=== PATIENT | male | born 1930 | race Caucasian/White ===

== ENCOUNTER 2017-11-05 22:44 | Inpatient (IN) | payer OTHER, MEDICARE ==
[~2017-11-05] VITALS: Ht 175.3 cm; Wt 93.1 kg
[~2017-11-05 22:44] MED LIST: ASPIR 8181 MG PO; ATENOLOL25 MG PO; ATORVASTATIN CA40 MG PO; CARDIOVID PLUS1 SGL PO; CLOPIDOGREL75 MG PO; HYDROCHLOROTH12.5 M1 PO; NIFEDICAL XL30 MG PO; PERCOCET 325 MG1 TA2 PO; VALIUM 10 MG. T10 MG PO; VICODIN 500 MG-1 TAB PO
--- NOTE | 2017-11-05 23:01 | ED GI/GU/ABDOMINAL COMPLAINT ---
History of Present Illness General Chief Complaint: Dizziness Stated Complaint: PT SOB,BLOOD IN STOOL AND DIZZY Source: patient Exam Limitations: no limitations Vital Signs & Intake/Output Vital Signs & Intake/Output Vital Signs Date Time Temp Pulse Resp B/P B/P Pulse O2 O2 Flow FiO2 Mean Ox Delivery Rate 11/05 2304 96.0 65 16 103/61 99 Room Air ED Intake and Output 11/06 0000 11/05 1200 Intake Total Output Total Balance Patient 218 lb Weight Allergies Coded Allergies: MDX - TAPE (TAPE) (UNKNOWN 05/24/14) Reconcile Medications Aspirin (Ecotrin) 81 MG TABLET.DR 1 TAB PO DAILY HEART HEALTH (Reported) Atenolol 25 MG TABLET 1 TAB PO DAILY HEART (Reported) NEXT DOSE TOMORROW Atorvastatin Calcium (Lipitor) 40 MG TABLET 1 TAB PO DAILY CHOLESTEROL ( Reported) NEXT DOSE THIS MARIAH CLOPIDOGREL BISULFATE (Clopidogrel) 75 MG TAB 1 TAB PO DAILY BLOOD THINNER ( Reported) FISH OIL/OM-3/DL-E/FA/B6-B12 (Cardiovid Plus Softgel) 1,000 MG-600 MG-800 MCG CAPSULE 1 TAB PO DAILY HEALTH (Reported) NEXT DOSE TODAY Nifedipine (Nifedipine ER) 30 MG TAB.ER.24 1 TAB PO DAILY HEART (Reported) NEXT DOSE TOMORROW Triage Note: PER PT ON 10/18/17 HAD RT KIDNEY REMOVED AT [facility], SINCE HAS HAD ABD PAIN TODAY NOTED BLOOD IN STOOL AND FEELING DIZZY AND SOB Triage Nurses Notes Reviewed? yes Duration: day(s):, waxing and waning Timing: recent history Quality/Severity: cramping Location: generalized abdomen Radiation: no radiation Activities at Onset: none Prior Abdominal Problems: none Modifying Factors: Worsens With: defecating. Associated Symptoms: dark black stools HPI: 87 YO gentleman s/p left nephrectomy in early october 2017, on aspirin and plavix, presents with weakness, dizziness, and dark black stools for the past 5-6 days. He is on aspirin and plavix for stents. He states, "I was sitting on the toilet and I almost passed out." He notes diffuse abdominal discomfort. He has no chest pain, dyspnea, fever, chills, dysuria. Past History Travel History Traveled to [place] past 21 day No Medical History Any Pertinent Medical History? see below for history Neurological: NONE EENT: hearing loss Cardiovascular: CAD, hypertension, hyperlipidemia, myocardial infarction, PVD, PACEMAKER (BRADYCARDIA) Respiratory: pneumonia Gastrointestinal: remote hx colon polyps. 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 FH: heart attack FATHER, , Age 67; Cause: Myocardial infarct. FH: heart attack Hx Contributory? No Review of Systems Review of Systems Constitutional: Reports: no symptoms. EENTM: Reports: no symptoms. Respiratory: Reports: no symptoms. Cardiovascular: Reports: no symptoms. GI: Reports: no symptoms. Genitourinary: Reports: no symptoms. Musculoskeletal: Reports: no symptoms. Skin: Reports: no symptoms. Neurological/Psychological: Reports: no symptoms. Hematologic/Endocrine: Reports: no symptoms. Immunologic/Allergic: Reports: no symptoms. All Other Systems: Reviewed and Negative Physical Exam Physical Exam General Appearance: well developed/nourished, mild distress Head: atraumatic, normal appearance Eyes: Bilateral: normal appearance. Ears, Nose, Throat, Mouth: hearing grossly normal, moist mucous membrane Neck: normal inspection, supple, full range of motion Respiratory: normal breath sounds, chest non-tender, no respiratory distress, quiet respiration, lungs clear Cardiovascular: regular rate/rhythm Gastrointestinal: normal bowel sounds, soft, mild diffuse tenderness to palpation. Rectal: heme positive stool, black stool Back: normal inspection, normal range of motion Extremities: normal range of motion Neurologic/Psych: no motor/sensory deficits, awake, alert, oriented x 3 Skin: intact, normal color, warm/dry Core Measures ACS in differential dx? No Sepsis Present: No Sepsis Focused Exam Completed? No Progress Differential Diagnosis: upper vs lower gi bleed. Plan of Care: Orders Procedure Date/time Status Nothing by Mouth 11/06 B Active Saline Lock 11/05 2357 Active Misc Message 11/05 2357 Active ED Holding Orders 11/05 2357 Active Admit to inpatient 11/05 2357 Active Vital Signs 11/05 2357 Active Code Status 11/05 2357 Active URINALYSIS 11/05 231 Complete TROPONIN LEVEL 11/05 2300 Complete PARTIAL THROMBOPLASTIN TIME 11/05 2300 Complete PROTHROMBIN TIME 11/05 2300 Complete LIPASE 11/05 2300 Complete HEPATIC FUNCTION PANEL 11/05 2300 Complete CBC WITHOUT DIFFERENTIAL 11/05 2300 Complete BASIC METABOLIC PANEL 11/05 2300 Complete AMYLASE 11/05 2300 Complete TYPE & SCREEN (NOT X-MATCH) 11/05 2300 Complete EKG 11/05 2245 Active Current Medications Sig/Moira Start time Last Medication Dose Stop Time Status Admin Sodium Chloride 1,000 ML BOLUS ONE 11/06 29 AC 11/06 (Normal Saline 0.9%) 11/06 128 003 Laboratory Tests 11/05/172329: Urine Color YEL, Urine Clarity CLEAR, Urine pH 6.0, Ur Specific [place] 1.020, Urine Protein NEG, Urine Ketones NEG, Urine Nitrite NEG, Urine Bilirubin NEG, Urine Urobilinogen 0.2, Ur Leukocyte Esterase NEG, Ur Microscopic EXAM NOT REQUIRED, Urine Hemoglobin NEG, Urine Glucose NEG 11/05/172306: Anion Gap 11, Estimated GFR 38 L, BUN/Creatinine Ratio 28.2 H, Glucose 145 H, Calcium 8.5, Total Bilirubin 0.4, Direct Bilirubin 0.3, AST 35, ALT 64, Alkaline Phosphatase 90, Troponin I < 0.01, Total Protein 6.2 L, Albumin 3.0 L, Amylase 38, Lipase 178, PT 13.4 H, INR 1.28 H, APTT 31, CBC w Diff NO MAN DIFF REQ, RBC 3.54 L, MCV 92.7, MCH 30.0, MCHC 32.4 L, RDW 13.3, MPV 9.1, Gran % 75.8 H , Lymphocytes % 15.3 L, Monocytes % 6.6, Eosinophils % 1.8, Basophils % 0.5, Absolute Granulocytes 13.5 H, Absolute Lymphocytes 2.7, Absolute Monocytes 1.2 H, Absolute Eosinophils 0.3, Absolute Basophils 0.1 Diagnostic Imaging: Viewed by Me: Radiology Read, CT Scan. Discussed w/RAD: Radiology Read, CT Scan. CXR Impression: PATIENT: MILADYS HALL PRESENT AGE: 87 PATIENT ACCOUNT NO: [id number] : 32 LOCATION: ER ORDERING PHYSICIAN: Lew eLon MD SERVICE DATE: 11/05/17 EXAM TYPE: RAD - XRY- PORTABLE CHEST XRAY EXAMINATION: XR PORTABLE CHEST CLINICAL INFORMATION: Dyspnea. COMPARISON: Chest x-ray 09/28/2017 TECHNIQUE: Portable frontal view of the chest was obtained. 11:01 PM FINDINGS: Pacemaker lead in right atrial and right ventricle remains unchanged position since prior study. The heart size is normal. The cardiac and the mediastinal contours are normal. There is no pulmonary vascular congestion or pleural effusion. IMPRESSION: No acute abnormality of the chest. DICTATED BY: Cody Esteban MD DATE/TIME DICTATED:2319 FAST FOOD SERVER:TEMITOPE DATE/TIME TRANSCRIBED:11/05/172319 CONFIDENTIAL, DO NOT COPY WITHOUT APPROPRIATE AUTHORIZATION. <Electronically signed in Other Vendor System> SIGNED BY: Cody Esteban MD 11/05/172324, PATIENT: MILADYS HALL PRESENT AGE: 87 PATIENT ACCOUNT NO: [id number] : 32 LOCATION: [facility] ORDERING PHYSICIAN: Lew Leon MD SERVICE DATE: 11/05/17 EXAM TYPE: CAT - CT ABD & PELVIS W/ O IV CONTRAS EXAMINATION: CT ABDOMEN AND PELVIS WITHOUT CONTRAST CLINICAL INFORMATION: Diffuse abdominal pain. Status post nephrectomy 10/18/2017. COMPARISON: 07/26/2015 TECHNIQUE: Multidetector volumetric imaging was performed from the superior aspect of the liver through the pubic symphysis. Sagittal and coronal reformatted images were obtained on the technologist's workstation. DLP: 1037 mGy-cm FINDINGS: LUNG BASES: Small left pleural effusion. Cyst noted at the right lung base. Coronary artery calcifications. Cardiac pacer leads terminate at the right atrium and right ventricle. LIVER, GALLBLADDER, AND BILIARY TREE: The liver is normal in size, shape, and attenuation. No focal hepatic lesion or biliary ductal dilatation is present. Gallstones are seen layering in the gallbladder lumen. No gallbladder wall thickening or pericholecystic fluid. PANCREAS: Redemonstration of a 0.9 cm hypoattenuating lesion in the pancreatic neck. This corresponds with a simple cyst seen on prior MR imaging. The pancreatic parenchyma is otherwise unremarkable. SPLEEN: Unremarkable. ADRENAL GLANDS: Unremarkable. KIDNEYS AND URETERS: Status post left nephrectomy. Mild stranding and fluid seen at the operative bed. No evidence of fluid collection. The right kidney is normal in position. Right midpole renal cyst unchanged. Exophytic right upper pole hyperattenuating lesion is unchanged, which likely represents a proteinaceous or hemorrhagic cyst as demonstrated on prior MRI. BLADDER: Unremarkable. GASTROINTESTINAL TRACT: The stomach is unremarkable. The small bowel is normal in caliber. No obstruction. There is colonic diverticulosis present. No colonic wall thickening or inflammatory change to suggest diverticulitis. Normal appendix. No free intraperitoneal air. Mild stranding extends along the left paracolic gutter into the pelvis. ABDOMINAL WALL: Stranding is seen along the left anterior abdominal wall with subcutaneous gas present. LYMPH NODES: Normal. VASCULAR: Moderate atherosclerotic calcifications. Bilateral common iliac artery stents. PELVIC VISCERA: Prostate calcifications. The seminal vesicles are unremarkable. OSSEOUS STRUCTURES: No acute or suspicious osseous abnormality. DISH. Multilevel degenerative changes throughout the spine. Degenerative changes of the hips. IMPRESSION: Status post left nephrectomy. Stranding is seen at the operative bed. No fluid collection. Mild stranding extends into the pelvis. Right kidney with renal cysts. Exophytic upper pole lesion is hyperattenuating, likely representing a hemorrhagic or proteinaceous cyst as seen on prior MRI. Cholelithiasis. Diverticulosis without evidence of diverticulitis. DICTATED BY: Narendra Lawrence MD DATE/TIME DICTATED:11/06/1736 FAST FOOD SERVER:TEMITOPE DATE/TIME TRANSCRIBED:36 CONFIDENTIAL, DO NOT COPY WITHOUT APPROPRIATE AUTHORIZATION. < Electronically signed in Other Vendor System> SIGNED BY: Narendra Lawrence MD 11/06/17 0045 Initial ED EKG: paced Departure Departure Disposition: STILL A PATIENT Condition: Stable Clinical Impression Primary Impression: GI bleed Secondary Impressions: Dehydration, Renal failure Referrals: Mayela CORTES,Mya Luke (PCP/Family) Departure Forms: Customer Survey General Discharge Information Comments 11/05/17, 23:18... DISCUSSED WITH GI WHO WILL SEE PT IN AM. Admission Note Spoke With: Jose L Carvalho MD Documentation of Exam: Documentation of any treatments & extenuating circumstances including Concerns Regarding Discharge (functional status, medication knowledge or non-compliance, living conditions, etc.) that warrant an admission rather than observation: pt with gi bleed, guiac + stools on aspirin/plavix, was orthostatic by symptoms.... merits serial hct, consider endoscopy, will need to hold asa/plavix for now. Critical Care Note Critical Care Note Critical Care Time: 30-74 min
[2017-11-05 23:16] LABS: ABSOLUTE BASOPHIL COUNT 0.1 /CUMM (0.0-0.2); ABSOLUTE EOSINOPHIL COUNT 0.3 /CUMM (0.0-0.7); ABSOLUTE GRANULOCYTE CT 13.5 /CUMM (1.4-6.5); ABSOLUTE LYMPH COUNT 2.7 /CUMM (1.2-3.4); ABSOLUTE MONOCYTE COUNT 1.2 /CUMM (0.10-0.60); BASOPHIL % 0.5 % (0.0-2.0); EOSINOPHIL % 1.8 % (0-5); HEMATOCRIT 32.8 % (42-52); MEAN CORPUSCULAR HGB CONC 32.4 G/DL (33.0-37.0); MEAN CORPUSCULAR VOLUME 92.7 FL (80.0-94.0); MEAN PLATELET VOLUME 9.1 FL (7.4-10.4); PLATELET COUNT 510 /CUMM (130-400); RBC DISTRIBUTION WIDTH 13.3 % (11.5-14.5); RED BLOOD CELL CT 3.54 /CUMM (4.70-6.10)
[2017-11-05 23:24] LABS: PT 13.4 SEC (9.4-12.5); PTT 31 SEC (25-37)
--- NOTE | 2017-11-05 23:25 | RADIOLOGY REPORT ---
EXAMINATION: XR PORTABLE CHEST CLINICAL INFORMATION: Dyspnea. COMPARISON: Chest x-ray 09/28/2017 TECHNIQUE: Portable frontal view of the chest was obtained. 11:01 PM FINDINGS: Pacemaker lead in right atrial and right ventricle remains unchanged position since prior study. The heart size is normal. The cardiac and the mediastinal contours are normal. There is no pulmonary vascular congestion or pleural effusion. IMPRESSION: No acute abnormality of the chest.
[2017-11-05 23:28] LABS: GRANULOCYTE % 75.8 % (42.2-75.2); WHITE BLOOD CELL COUNT 17.8 /CUMM (4.8-10.8)
--- NOTE | 2017-11-06 00:45 | CT SCAN REPORT ---
EXAMINATION: CT ABDOMEN AND PELVIS WITHOUT CONTRAST CLINICAL INFORMATION: Diffuse abdominal pain. Status post nephrectomy 10/18/2017. COMPARISON: 07/26/2015 TECHNIQUE: Multidetector volumetric imaging was performed from the superior aspect of the liver through the pubic symphysis. Sagittal and coronal reformatted images were obtained on the technologist's workstation. DLP: 1037 mGy-cm FINDINGS: LUNG BASES: Small left pleural effusion. Cyst noted at the right lung base. Coronary artery calcifications. Cardiac pacer leads terminate at the right atrium and right ventricle. LIVER, GALLBLADDER, AND BILIARY TREE: The liver is normal in size, shape, and attenuation. No focal hepatic lesion or biliary ductal dilatation is present. Gallstones are seen layering in the gallbladder lumen. No gallbladder wall thickening or pericholecystic fluid. PANCREAS: Redemonstration of a 0.9 cm hypoattenuating lesion in the pancreatic neck. This corresponds with a simple cyst seen on prior MR imaging. The pancreatic parenchyma is otherwise unremarkable. SPLEEN: Unremarkable. ADRENAL GLANDS: Unremarkable. KIDNEYS AND URETERS: Status post left nephrectomy. Mild stranding and fluid seen at the operative bed. No evidence of fluid collection. The right kidney is normal in position. Right midpole renal cyst unchanged. Exophytic right upper pole hyperattenuating lesion is unchanged, which likely represents a proteinaceous or hemorrhagic cyst as demonstrated on prior MRI. BLADDER: Unremarkable. GASTROINTESTINAL TRACT: The stomach is unremarkable. The small bowel is normal in caliber. No obstruction. There is colonic diverticulosis present. No colonic wall thickening or inflammatory change to suggest diverticulitis. Normal appendix. No free intraperitoneal air. Mild stranding extends along the left paracolic gutter into the pelvis. ABDOMINAL WALL: Stranding is seen along the left anterior abdominal wall with subcutaneous gas present. LYMPH NODES: Normal. VASCULAR: Moderate atherosclerotic calcifications. Bilateral common iliac artery stents. PELVIC VISCERA: Prostate calcifications. The seminal vesicles are unremarkable. OSSEOUS STRUCTURES: No acute or suspicious osseous abnormality. DISH. Multilevel degenerative changes throughout the spine. Degenerative changes of the hips. IMPRESSION: Status post left nephrectomy. Stranding is seen at the operative bed. No fluid collection. Mild stranding extends into the pelvis. Right kidney with renal cysts. Exophytic upper pole lesion is hyperattenuating, likely representing a hemorrhagic or proteinaceous cyst as seen on prior MRI. Cholelithiasis. Diverticulosis without evidence of diverticulitis.
--- NOTE | 2017-11-06 01:02 | History & Physical ---
General Information and HPI MD Statement: I have seen and personally examined MILADYS HALL and documented this H&P. The patient is a 87 year old M who presented with a patient stated chief complaint of []. Exam Limitations: no limitations Allergies/Medications Allergies: Coded Allergies: MDX - TAPE (TAPE) (UNKNOWN 05/24/14) Home Med list Aspirin (Ecotrin) 81 MG TABLET.DR 1 TAB PO DAILY HEART HEALTH (Reported) Atenolol 25 MG TABLET 1 TAB PO DAILY HEART (Reported) NEXT DOSE TOMORROW Atorvastatin Calcium (Lipitor) 40 MG TABLET 1 TAB PO DAILY CHOLESTEROL ( Reported) NEXT DOSE THIS MARIAH CLOPIDOGREL BISULFATE (Clopidogrel) 75 MG TAB 1 TAB PO DAILY BLOOD THINNER ( Reported) Nifedipine (Nifedipine ER) 30 MG TAB.ER.24 1 TAB PO DAILY HEART (Reported) NEXT DOSE TOMORROW Past History Travel History Traveled to [facility] past 21 day No Medical History Neurological: NONE EENT: hearing loss Cardiovascular: CAD, hypertension, hyperlipidemia, myocardial infarction, PVD, PACEMAKER (BRADYCARDIA) Respiratory: pneumonia Gastrointestinal: remote hx colon polyps. 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 FH: heart attack FATHER, , Age 67; Cause: Myocardial infarct. FH: heart attack Psychosocial History Who Do You Live With? spouse Services at Home: None Primary Language: [place]ralt[place] Living Will? unknown Power of Traffic Maintenance Supervisor/HCP? unknown Functional Ability ADLs Independent: dressing, eating, toileting, bathing. Ambulation: independent IADLs Independent: shopping, housework, finances, food prep, telephone, transportation , medication admin. Functional Ability ADLs Independent: dressing, eating, toileting, bathing. Ambulation: independent IADLs Independent: shopping, housework, finances, food prep, telephone, transportation , medication admin.
--- NOTE | 2017-11-06 02:33 | History & Physical ---
Vicky CORTES,Jakob 11/06/17 0232: General Information and HPI MD Statement: I have seen and personally examined MILADYS HALL and documented this H&P. The patient is a 87 year old M who presented with a patient stated chief complaint of [melena, lightheadedness, SOB]. Source of Information: patient, family Exam Limitations: no limitations History of Present Illness: Patient is an 87-year-old male with a PMH significant for HTN, HLD, CAD status post SC in 1975, PVD status post iliac stent placement, status post pacemaker placement for bradycardia arrhythmia in 2013, and RCC status post nephrectomy on 10/20/17 who presents to the ED complaining of abdominal pain, lightheadedness, shortness of breath, melena. Abdominal pain has been present since his nephrectomy done by Dr. Ramos Rizvi at [facility]. He was discharged postoperatively on an aggressive bowel regimen and his pain was attributed to constipation. His pain since surgery has been a maximum of 9/10 however currently is only a 3/10. He describes the abdominal pain as left-sided pressure-like pain that travels up his abdomen. He presented to the [facility] ED on 11/01/17 complaining of shortness of breath on exertion and positional lightheadedness. At this time PE was ruled out he was observed within the ED for 24 hours and sent home. Since that time he has had mild improvement in his symptoms however today he had a melanotic bowel movement despite his , after which she experienced severe lightheadedness, and shortness of breath. At this point his family decided to take him to the ED. He endorses a headache today as well as some nausea associated with the lightheadedness after the bowel movement. He did not vomit or lose consciousness. He denies any chest pain, fever, chills. Past History Travel History Traveled to [place] past 21 day No Medical History Neurological: NONE EENT: hearing loss Cardiovascular: CAD, hypertension, hyperlipidemia, myocardial infarction, PVD, PACEMAKER (BRADYCARDIA) Respiratory: pneumonia Gastrointestinal: remote hx colon polyps. 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 FH: heart attack FATHER, , Age 67; Cause: Myocardial infarct. FH: heart attack Psychosocial History Who Do You Live With? spouse Services at Home: None Primary Language: [place] Smoking Status: Former Smoker (25 pack years) ETOH Use: occasional use Illicit Drug Use: denies illicit drug use Living Will? unknown Power of Nub Card Tender/HCP? unknown Functional Ability ADLs Independent: dressing, eating, toileting, bathing. Ambulation: independent IADLs Independent: shopping, housework, finances, food prep, telephone, transportation , medication admin. Review of Systems Review of Systems Constitutional: Denies: chills, diaphoresis, fever. EENTM: Denies: blurred vision, double vision, visual changes. Cardiovascular: Denies: chest pain, orthopena, palpitations, peripheral edema, syncope. Respiratory: Reports: cough (chronic), short of breath, sputum production (chronic). GI: Reports: abdominal pain, melena, nausea, changes in stool. Denies: vomiting. Genitourinary: Reports: hesitation. Musculoskeletal: Reports: no symptoms. Skin: Reports: no symptoms. Neurological/Psychological: Reports: no symptoms. Exam & Diagnostic Data Last 24 Hrs of Vital Signs/I&O Vital Signs Date Time Temp Pulse Resp B/P B/P Pulse O2 O2 Flow FiO2 Mean Ox Delivery Rate 11/06 0217 64 16 96/61 Room Air 11/06 0100 Room Air 11/06 0100 97.5 67 18 101/58 99 Room Air 11/05 2304 96.0 65 16 103/61 99 Room Air Intake & Output 11/06 0800 11/06 0000 11/05 1600 Intake Total 1000 Output Total 100 Balance 900 Intake, IV 1000 Output, Urine 100 Patient 218 lb Weight Physical Exam General Appearance Alert, Cooperative, No Acute Distress HEENT Atraumatic, PERRLA, EOMI, Mucous Membr. moist/pink Neck Supple, No JVD, +2 Carotid Pulse wo Bruit Cardiovascular Regular Rate, Normal S1, Normal S2 Lungs Clear to Auscultation, Normal Air Movement Abdomen Normal Bowel Sounds, Soft, surgical scars on the L abdomen, no surrounding errythema, no drainage, Mild TTP of the LLQ Neurological Normal Speech, Strength at 5/5 X4 Ext, Normal Tone, Sensation Intact, Cranial Nerves 3-12 NL Extremities No Clubbing, No Cyanosis, No Edema Vascular Normal Pulses, Pulses Symmetrical Rectal patient passed 2 large blood clots per rectum while in the Last 24 Hrs of Labs/Dhruv: Laboratory Tests 11/06/17 0420: Sodium Pending, Potassium Pending, Chloride Pending, Carbon Dioxide Pending, Anion Gap Pending, BUN Pending, Creatinine Pending, Glucose Pending, Calcium Pending, Phosphorus Pending, Magnesium Pending, Total Bilirubin Pending, AST Pending, ALT Pending, Albumin Pending, CBC w Diff Pending, WBC Pending, RBC Pending, Hgb Pending, Hct Pending, MCV Pending, MCH Pending, MCHC Pending, RDW Pending, Plt Count Pending, MPV Pending 11/05/17 2330: Urine Color YEL, Urine Clarity CLEAR, Urine pH 6.0, Ur Specific [place] 1.020, Urine Protein NEG, Urine Ketones NEG, Urine Nitrite NEG, Urine Bilirubin NEG, Urine Urobilinogen 0.2, Ur Leukocyte Esterase NEG, Ur Microscopic EXAM NOT REQUIRED, Urine Hemoglobin NEG, Urine Glucose NEG 11/05/17 2307: Anion Gap 11, Estimated GFR 38 L, BUN/Creatinine Ratio 28.2 H, Glucose 145 H, Calcium 8.5, Total Bilirubin 0.4, Direct Bilirubin 0.3, AST 35, ALT 64, Alkaline Phosphatase 90, Troponin I < 0.01, Total Protein 6.2 L, Albumin 3.0 L, Amylase 38, Lipase 178, PT 13.4 H, INR 1.28 H, APTT 31, CBC w Diff NO MAN DIFF REQ, RBC 3.54 L, MCV 92.7, MCH 30.0, MCHC 32.4 L, RDW 13.3, MPV 9.1, Gran % 75.8 H , Lymphocytes % 15.3 L, Monocytes % 6.6, Eosinophils % 1.8, Basophils % 0.5, Absolute Granulocytes 13.5 H, Absolute Lymphocytes 2.7, Absolute Monocytes 1.2 H, Absolute Eosinophils 0.3, Absolute Basophils 0.1 Microbiology 11/06 404 UPPER RESP: Surveillance Culture - RECD 02/24 0400 GI: Surveillance Culture - ORD Diagnostic Data CXR Results No acute abnormality of the chest. Other Results CT abd/pelvis Status post left nephrectomy. Stranding is seen at the operative bed. No fluid collection. Mild stranding extends into the pelvis. Right kidney with renal cysts. Exophytic upper pole lesion is hyperattenuating, likely representing a hemorrhagic or proteinaceous cyst as seen on prior MRI. Cholelithiasis. Diverticulosis without evidence of diverticulitis. Assessment/Plan Assessment: Patient is an 87-year-old male with a PMH significant for HTN, HLD, CAD status post SC in 1975, PVD status post iliac stent placement, status post pacemaker placement for bradycardia arrhythmia in 2013, and RCC status post nephrectomy on 10/20/17 who presents to the ED complaining of abdominal pain, lightheadedness, shortness of breath, melena. He has been experiencing abdominal pressure like pain since the time of the surgery initially attributed to constipation and he was sent home from [facility] on an aggressive bowel regimen. He began having shortness of breath and lightheadedness 5 days prior to this admission and was seen in the ED her PE was ruled out. He has seen slight improvement since this ER visit however today he had lightheadedness, nausea, diaphoresis associated with a bloody bowel movement. Labs on admission: H/H 10.6/32.8, WBC 17.8, platelets 510, BUN 48, creatinine 1.7 Patient was orthostatic positive, dropping from 103/61 to 92/51 from lying to sitting and unable to stand due to lightheadedness. Problem list #GI bleed #Anemia #CRUZ in the setting of recent nephrectomy, patient recently had IV contrast to rule out PE at [facility], could represent contrast nephropathy #Leukocytosis patient is afebrile, possibly reactive #History of CAD, HTN, HLD, PVD Plan -Admit to the ICU -Maintaine 2 IV bore needles -Serial CBCs with goal hemoglobin >8 -GI consult for the a.m. placed with control tower operator engineering director - obtain records from [facility] -IV Protonix 40 twice a day -Nothing by mouth pending GI evaluation -Guaiac all stools -Hold home atenolol, ASA, Plavix -Nephrology consult placed with control tower operator regulator pin inserter for a cataract and light of recent nephrectomy -Continue home atorvostatin -DVT prophylaxis: ALPS -CODE STATUS: Full code As Ranked By This Provider Problem List: 1. GI bleed Core Measures/Misc (05/30) Acute Coronary Syndrome ACS Diagnosis: No Congestive Heart Failure Congestive Heart Failure Diagnosis No Cerebrovascular Accident CVA/TIA Diagnosis: No VTE (View Protocol) VTE Risk Factors VTE (Previous) No Mechanical VTE Prophylaxis d/t N/A MechProphylax Ordered No VTE Pharm Prophylaxis d/t Bleeding (Active) Sepsis (View protocol) Sepsis Present: No Lester Coughlin MD 11/06/17 0249: General Information and HPI Allergies/Medications Allergies: Coded Allergies: adhesive tape (UNKNOWN 11/06/17) Home Med list Atorvastatin Calcium (Lipitor) 40 MG TABLET 1 TAB PO DAILY dyslipidemia ( Reported) Nifedipine (Nifedipine ER) 30 MG TAB.ER.24 1 TAB PO DAILY Heart (Reported) Pantoprazole Sodium (Protonix) 40 MG TABLET. 1 TAB PO BID GI protection Resident Review Statement Resident Statement: examined this patient, discussed with grinder set up operator internal Other Findings: Mr Hall 87-year-old pleasant male, hypertensive, hyperlipidemia, nondiabetic, permanent pacemaker for yong arrhythmia 04/23/2014, nonsmoker, nonalcoholic, history of ASHD post SC 1975, remote bilateral carotid endarterectomy, peripheral vascular disease, post bilateral iliac stents approximately 10 years ago (on aspirin and Plavix), left rotator cuff repair, history of prostatitis, decompressive lumbar spine surgery, with intact gallbladder and recent Nephrectomy done in October of this year, who presented to the emergency department on 11/05/2017 with a chief complaint of: abdominal pain, SOB, weakness and dizziness. Patient states that he recently underwent a left nephrectomy 10/18/2017 at [facility]. On 11/01/2017 the patient endorsed some shortness of breath and was taken to the emergency department at [facility] where he was ruled out for a PE. Imaging studies done there also showed a pleural effusion which was not tapped. He was nto admitted, but spent one night in the ED. He was also sent home with an aggressive bowel regimen of senna and MiraLAX twice a day. Upon discharge from [facility] the patient appears to have been doing well up until the early hours of 11/05/2017. Patient states that he developed abdominal pain. Pain was rated at a 9/10 in severity. He also endorsed some dizziness. This afternoon when he attempted to have a bowel movement he had an episode where he felt like he was about to pass out. Stool during this episode was described as black and tarry. At the time of our clinical interaction, patient stated he was feeling better, and stated abdominal pain was rated at a 3/10 in severity. Patient denied any hematuria in urine although does state he has been experiencing some urinary heistancy. PCP: Dr Pedro Left Nephrectomy done by: Ramos Rizvi MD. [phone] R: Patient denied any fever, chills, nausea, vomiting. He did state that he's recently had some bilaterral edema. E: Temperature 96.0. Respirations 16. Blood pressure 103/61. Heart rate 65. General Appearance: well developed/nourished, mild distress Head: atraumatic, normal appearance Eyes: PERRLA Bilateral: normal appearance. Ears, Nose, Throat, Mouth: hearing grossly normal, moist mucous membranes Neck: normal inspection, supple, full range of motion Respiratory: normal breath sounds, chest non-tender, no respiratory distress, quiet respiration, lungs clear Cardiovascular: regular rate/rhythm, No Murmurs Gastrointestinal: normal bowel sounds, soft, mild diffuse tenderness to palpation, Chan sign negative. Anterior abdominal left lower quadrant scar, approximately 10 cm. Clean, dry, intact. Rectal: Deffered, however patient did continue to pass blood clots via rectum. Back: normal inspection, normal range of motion Extremities: normal range of motion Neurologic/Psych: no motor/sensory deficits, awake, alert, oriented x 3 Skin: intact, normal color, warm/dry L: WBC 17.8. H&H 10.6 and 32.8. Platelets 510. Sodium 134 potassium 4.9. BUN 48. Creatinine 1.7. INR is 1.28. I: CT ABD & PELVIS W/O IV CONTRAS Cholelithiasis. Diverticulosis without evidence of diverticulitis. C-Xray: IMPRESSION: No acute abnormality of the chest. A/P Mr Hall 87-year-old pleasant male, hypertensive, hyperlipidemia, nondiabetic, permanent pacemaker for yong arrhythmia 04/23/2014, nonsmoker, nonalcoholic, history of ASHD post SC 1975, remote bilateral carotid endarterectomy, peripheral vascular disease, post bilateral iliac stents approximately 10 years ago (on aspirin and Plavix), left rotator cuff repair, history of prostatitis, decompressive lumbar spine surgery, with intact gallbladder, who presented to the emergency department on 11/05/2017 with a chief complaint of: abdominal pain, SOB, weakness and dizziness. Acute Blood Loss Anemia CRUZ Leukocytosis History of HTN, HLD, CAD Will admit the patient to the [facility]CU. Maintain to IV bore needles at all times. Monitor CBC every 6-8 hours. Maintain H&H above 8. Obtain formal GI consultation in a.m. If any overt signs of active bleed or hemodynamically unstable contact GI stat for consideration of colonoscopy. Guaiac all stools. IV Protonix 40 BID. Obtain nephrology consultation in a.m. Continue home medications for now. Hold Aspirin and Plavix. Diet patient should remain nothing by mouth. DVT prophylaxis with ALPS. Patient is a full code. Deven CORTES, [facility] 11/06/17 0608: Attending MD Review Statement Attending Statement Attending MD Statement: examined this patient, discuss w/resident/PA/CATH LAB, agreed w/resident/PA/CATH LAB, discussed with family, reviewed images, amended to note Attending Assessment/Plan: 87 yo M with h/o HTN, bradyarrhythmias s/p PPM, CAD s/p SC, PVD s/p iliac stents and b/l CEA, RCC s/p left nephrectomy (0n 10/20/17 at [facility]), is here for evaluation of abdominal discomfort, dyspnea, weakness, lightheadedness ( presyncope) and black stools that started on day of admission. Post discharge from [facility], patient was having dyspnea with low oxygen sats, was seen in the ER earlier this week and was ruled out for PE with a CTA. There was evidence of pleural effusion but not enough to tap. Patient was constipated so was given an aggressive bowel regime. Since starting the stool softeners, he has been having intermittent semi-formed stools that are black and tarry. No BRBPR or hematemesis. Patient is on aspirin and plavix but no excessive use of NSAIDs. Last colonoscopy (2015): pandiverticulosis, polyps s/p polypectomy (benign). Vitals stable except for transient hypotension 96/61 --> 110/80. Orthostats++. Exam: AAO, pallor+, rectal guaiac positive black stool, noted 2 blood clots in the commode+. Labs: WBC 17.8, H/H 10.6/32.8 (11.5/35 at [facility] on Nov 02), INR 1.28, Na 134, bicarb 21, BUN 48, creat 1.7 (22/1.59 at [facility] on Nov 02), trop neg. CT abd/pelvis: status post left nephrectomy, stranding seen at operative bed, no fluid collection. Right kidney with renal cysts. Cholelithiasis, diverticulosis. EKG: paced. CXR: neg. Assessment and plan: 1. Acute blood loss anemia 2. Symptomatic anemia 3. GI bleed upper vs. Lower 4. Orthostatic hypotension 5. H/o CAD and PVD on aspirin and plavix 6. Recent left nephrectomy for RCC 7. Leukocytosis is reactive - Admit to ICU - Vitals Q1 hour - Type and crossmatch - CBC Q 6 hourly - Two wide bore peripheral lines - Transfuse for goal Hb > 8.0 - IV PPI BID - GI consult (Dr. Jordan stout) - IV fluids, recheck orthostats in AM - Hold aspirin and plavix - Serial EKG and troponin to rule out ACS - CRCU consult in AM - Patient's maintenance craftsman is Dr. Edward, consider cardio consult inpatient as needed - Hold atenolol, nifedipine due to borderline BP - Nephro consult in AM - NPO except for ice chips DVT ppx Alps. Full code. TTS > 55 mins - Hold atenolol, nifedipine due to borderline BP - Nephro consult in AM - NPO except for ice chips DVT ppx Alps. Full code. TTS > 55 mins
--- NOTE | 2017-11-06 02:35 | Admission Certification ---
Admission Certification Certification Statement - As attending physician, I certify that at the time of - admission, based on clinical presentation, severity of - symptoms, need for further diagnostic testing and - therapeutic interventions, and risk of adverse outcomes - without in-hospital treatment, in my clinical assessment, - this patient requires an acute hospital stay for a minimum - of two nights or longer. I have also considered psychsocial - factors such as support system, advanced age, financial - issues, cognitive issues, and failed out-patient treatments, - past re-admission history, safety of patient, and lack of - compliance as applicable. Specific rationale supporting this admission is: Acute blood loss anemia, GI bleed, symptomatic anemia, orthostatic hypotension.
[2017-11-06 04:00] VITALS: BP 110/80
[2017-11-06 05:24] LABS: ABSOLUTE BASOPHIL COUNT 0 /CUMM (0.0-0.2); ABSOLUTE EOSINOPHIL COUNT 0.1 /CUMM (0.0-0.7); ABSOLUTE LYMPH COUNT 1.9 /CUMM (1.2-3.4); EOSINOPHIL % 0.9 % (0-5); WHITE BLOOD CELL COUNT 12.2 /CUMM (4.8-10.8)
[2017-11-06 05:38] LABS: ABSOLUTE GRANULOCYTE CT 9.4 /CUMM (1.4-6.5); ABSOLUTE MONOCYTE COUNT 0.7 /CUMM (0.10-0.60); BASOPHIL % 0.4 % (0.0-2.0); GRANULOCYTE % 77.5 % (42.2-75.2); MEAN CORPUSCULAR HGB 30.3 PG (27.0-31.0); MEAN CORPUSCULAR HGB CONC 33.1 G/DL (33.0-37.0); MEAN CORPUSCULAR VOLUME 91.4 FL (80.0-94.0); MEAN PLATELET VOLUME 9.5 FL (7.4-10.4); PLATELET COUNT 385 /CUMM (130-400); RBC DISTRIBUTION WIDTH 13.2 % (11.5-14.5); RED BLOOD CELL CT 2.96 /CUMM (4.70-6.10)
[2017-11-06 08:00] VITALS: BP 110/60
--- NOTE | 2017-11-06 08:37 | Cons- CRCU ---
Red Friend MD 11/06/17 0822: General Information and HPI Consulting Request Date of Consult: 11/06/17 Requested By: ED History of Present Illness: 87-year-old man with past medical history of coronary artery disease with myocardial infarction in 1975 s/p PCI with two stents, hypertension, hyperlipidemia, bradycardia s/p PPM, and recent RCC s/p nephrectomy on 10/20/17 seen for evaluation of abdominal pain, lightheadedness, shortness of breath, and black tarry stool. Patient admits the abdominal pain had been present since the nephrectomy. Postoperatively he developed constipation and was started on a bowel regimen. He was seen in the [place] ED on 11/01/17 for evaluation of shortness of breath where a CTA ruled out pulmonary embolism. The day of admission patient reported black tarry stools with recurrance of his shortness of breath and was found to have guaic positive stool with orthostatis and mildly low hemoglobin for which he was admitted to the ICU. Presently patient admits to fatigue and shortness of breath and dizziness with exertion. He has had multiple small volume black tarry bowel movements overnight. He has persistent abdominal pain mostly around the left nephrectomy incision site. He otherwise denies any fever, chills, chest pain, palpitations, nausea, vomiting. Allergies/Medications Allergies: Coded Allergies: adhesive tape (UNKNOWN 11/06/17) Home Med List: Aspirin (Ecotrin) 81 MG TABLET.DR 1 TAB PO DAILY HEART HEALTH (Reported) Atenolol 25 MG TABLET 1 TAB PO DAILY HEART (Reported) NEXT DOSE TOMORROW Atorvastatin Calcium (Lipitor) 40 MG TABLET 1 TAB PO DAILY CHOLESTEROL ( Reported) NEXT DOSE THIS MARIAH CLOPIDOGREL BISULFATE (Clopidogrel) 75 MG TAB 1 TAB PO DAILY BLOOD THINNER ( Reported) Nifedipine (Nifedipine ER) 30 MG TAB.ER.24 1 TAB PO DAILY HEART (Reported) NEXT DOSE TOMORROW Current Medications: Current Medications Sig/Moira Start time Last Medication Dose Route Stop Time Status Admin Acetaminophen 1,000 MG Q6P PRN 11/06 0945 AC N/A 1 UNIT IV Atenolol 25 MG DAILY 11/06 1000 CAN PO Atorvastatin Calcium 40 MG 1700 11/06 1700 AC PO Pantoprazole Sodium 40 MG BID 11/06 1000 AC 11/06 IV 0937 Pantoprazole Sodium 0 .STK-MED ONE 11/06 0035 DC IV Pantoprazole Sodium 80 MG ONCE ONE 11/06 0030 DC 11/06 IV 11/06 0031 0037 Sodium Chloride 1,000 ML ONCE ONE 11/06 0300 AC 11/06 IV 11/06 1619 0408 Sodium Chloride 1,000 ML BOLUS ONE 11/06 0030 DC 11/06 IV 11/06 0129 0037 Review of Systems Review of Systems Constitutional: Reports: see HPI. Past History Travel History Traveled to [place] past 21 day No Medical History Blood Transfusion Hx: No Neurological: NONE EENT: hearing loss Cardiovascular: CAD, hypertension, hyperlipidemia, myocardial infarction, PVD, PACEMAKER (BRADYCARDIA) Respiratory: pneumonia Gastrointestinal: remote hx colon polyps. Hepatic: cholelithiasis Renal: RCC Musculoskeletal: chronic back pain, degen joint disease, osteoarthritis, spinal stenosis, Lumbar repair Psychiatric: NONE Endocrine: NONE Blood Disorders: NONE Cancer(s): NONE SPECIAL EFFECTS PERSON/Reproductive: NONE Surgical History Surgical History: L nephrectomy 10/20/2017 Family History Relations & Conditions If Any: MOTHER, , Age 94; Cause: Myocardial infarct. FH: heart attack FATHER, , Age 67; Cause: Myocardial infarct. FH: heart attack Psychosocial History Where Do You Live? Home Who Do You Live With? spouse Services at Home: None Primary Language: Cypriot Smoking Status: Former Smoker (25 pack years) ETOH Use: occasional use Illicit Drug Use: denies illicit drug use Living Will? unknown Power of [place] Clerk/HCP? unknown Functional Ability ADLs Independent: dressing, eating, toileting, bathing. Ambulation: independent IADLs Independent: shopping, housework, finances, food prep, telephone, transportation , medication admin. Exam & Diagnostic Data Last 24 Hrs of Vital Signs/I&O Vital Signs Date Time Temp Pulse Resp B/P B/P Pulse O2 O2 Flow FiO2 Mean Ox Delivery Rate 11/06 0400 97 Room Air 11/06 0400 97.6 60 18 110/80 97 Room Air 11/06 0217 64 16 96/61 Room Air 11/06 0100 Room Air 11/06 0100 97.5 67 18 101/58 99 Room Air 11/05 2304 96.0 65 16 103/61 99 Room Air Intake & Output 11/06 1600 11/06 0800 11/06 0000 Intake Total 1200 Output Total 400 Balance 800 Intake, IV 1200 Number 3 Bowel Movements Output, Urine 400 Patient 91.767 kg 98.883 kg Weight Weight Bed scale Measurement Method Physical Exam General Appearance: well developed/nourished, no apparent distress, alert, awake , comfortable Other Physical Findings: GEN: well developed, well nourished elderly man in no acute distress HEENT: NCAT, PERRL, EOMI, anicteric sclera, MMM NECK: Supple, No JVD, Trachea midline, no accessory respiratory muscle use CARD: Normal S1/S2 w/o m/g/r; RRR PULM: CTA bilaterally ABD: Soft, mild diffuse tenderness, no guarding/ridigitity, severe tenderness around left lower quadrant nephrectomy incision that appears to be healing well without erythema or drainage, BS + NEURO: Awake and alert, CN II-XII grossly intact EXT: normal pulses, no edema Last 48 Hrs of Labs/Dhruv: Laboratory Tests 11/06/17 0420: Anion Gap 8, Estimated GFR 38 L, Glucose 103 H, Calcium 8.0 L, Phosphorus 3.4 , Magnesium 2.0, Total Bilirubin 0.3, AST 27, ALT 54, Troponin I < 0.01, Albumin 2.4 L, CBC w Diff NO MAN DIFF REQ, RBC 2.96 L, MCV 91.4, MCH 30.3, MCHC 33.1, RDW 13.2, MPV 9.5, Gran % 77.5 H, Lymphocytes % 15.7 L, Monocytes % 5.5, Eosinophils % 0.9, Basophils % 0.4, Absolute Granulocytes 9.4 H, Absolute Lymphocytes 1.9, Absolute Monocytes 0.7 H, Absolute Eosinophils 0.1, Absolute Basophils 0 11/05/17 2330: Urine Color YEL, Urine Clarity CLEAR, Urine pH 6.0, Ur Specific [place] 1.020, Urine Protein NEG, Urine Ketones NEG, Urine Nitrite NEG, Urine Bilirubin NEG, Urine Urobilinogen 0.2, Ur Leukocyte Esterase NEG, Ur Microscopic EXAM NOT REQUIRED, Urine Hemoglobin NEG, Urine Glucose NEG 11/05/17 2307: Anion Gap 11, Estimated GFR 38 L, BUN/Creatinine Ratio 28.2 H, Glucose 145 H, Calcium 8.5, Total Bilirubin 0.4, Direct Bilirubin 0.3, AST 35, ALT 64, Alkaline Phosphatase 90, Troponin I < 0.01, Total Protein 6.2 L, Albumin 3.0 L, Amylase 38, Lipase 178, PT 13.4 H, INR 1.28 H, APTT 31, CBC w Diff NO MAN DIFF REQ, RBC 3.54 L, MCV 92.7, MCH 30.0, MCHC 32.4 L, RDW 13.3, MPV 9.1, Gran % 75.8 H , Lymphocytes % 15.3 L, Monocytes % 6.6, Eosinophils % 1.8, Basophils % 0.5, Absolute Granulocytes 13.5 H, Absolute Lymphocytes 2.7, Absolute Monocytes 1.2 H, Absolute Eosinophils 0.3, Absolute Basophils 0.1 Assessment/Plan CRCU Impression/Plan: 87 year old man with multiple medical problems significant for recent nephrectomy due to RCC, CAD with history of ID, and multiple cardiovasular risk factors seen for evaluation of abdominal pain, lightheadedness, shortness of breath, and black/tarry stools admitted for evaluation of probable GI bleed and symptomatic anemia. Patients symptomatic anemia continues to persist. He hemoglobin has thus far remained stable and has not required any transfusion. He is continue on normal saline and protonix drip. He remains NPO pending gastroenterology evaluation. Nephrology consult was placed for his elevated creatine that most likely represents prerenal azotemia; recommendations pending. Problem List -Abdominal pain with black tarry stool, probable GI bleed -Acute blood loss anemia -Shortness of breath, probable symptomatic anemia; CTA negative -Acute Kidney Injury, probable prerenal -Recent renal cell carcinoma s/p nephrectomy -Coronary artery disease -Myocardial infarction (1975) -Hypertension -Hyperlipidemia -Constipation, on bowel regimen -Peripheral vascular disease s/p iliac stent -Bradycardia s/p PPM (2013) Plan -ICU -Two large bore IVs -CBC Q6H -Guaic all stools -Avoid NSAIDS and Nephrotoxic agents -Type & Cross, transfuse hgb to > 8.0 -NS @ 75 mL/hr -Protonix 40 mg IV BID -Hold beta-anupama for labile blood pressure -Hold aspirin/plavix with active bleed -Continue home meds: atorvastatin -GI consult for lower GI bleed -Nephro consult for RCC and CRUZ -Daily chemistries -CBC every six hours -Pain control with acetaminophen -NPO for possible endoscopy -DVT PPx with ALPS, no anticoagulation -FULL CODE Consult Acknowledgment - Thank you for your consult request. Chet Hughes MD 11/06/17 0930: Assessment/Plan CRCU Other Findings/Comments: Impression 87 year old man * acute blood loss anemia upper GI bleed * renall cell ca, s/p nephrectomy Plan -ivf -monitor cbc q6h -GI consultation -NPO -iv access -PPI -a/c held for GI bleed DVT prophylaxis - ALPS TTS 35 min Consult Acknowledgment - Thank you for your consult request.
[2017-11-06 11:42] LABS: ABSOLUTE BASOPHIL COUNT 0.1 /CUMM (0.0-0.2); ABSOLUTE EOSINOPHIL COUNT 0.2 /CUMM (0.0-0.7); ABSOLUTE LYMPH COUNT 2.7 /CUMM (1.2-3.4); ABSOLUTE MONOCYTE COUNT 0.9 /CUMM (0.10-0.60); BASOPHIL % 0.4 % (0.0-2.0); EOSINOPHIL % 1.3 % (0-5); GRANULOCYTE % 74.3 % (42.2-75.2); HEMATOCRIT 24.4 % (42-52); MEAN CORPUSCULAR HGB 30.8 PG (27.0-31.0); MEAN CORPUSCULAR HGB CONC 33.5 G/DL (33.0-37.0); MEAN CORPUSCULAR VOLUME 91.8 FL (80.0-94.0); MEAN PLATELET VOLUME 9.5 FL (7.4-10.4); PLATELET COUNT 443 /CUMM (130-400); RBC DISTRIBUTION WIDTH 13.1 % (11.5-14.5); RED BLOOD CELL CT 2.66 /CUMM (4.70-6.10); WHITE BLOOD CELL COUNT 14.7 /CUMM (4.8-10.8)
--- NOTE | 2017-11-06 14:04 | Cons- Gastroenterology ---
General Information and HPI Consulting Request Date of Consult: 11/06/17 Requested By: Chet Hughes MD Reason for Consult: Melena Source of Information: patient, old records Exam Limitations: no limitations History of Present Illness: Patient is an 87 yr old man who underwent a nephrectomy approx 2 weeks ago at [facility] for RCC and felt constipated after this. Approx 10 days ago he noticed that his Bm were very dark/black, but not very frequent. yesterday he strated having frequent melanotic stool, and had approx 6-8 between noon and midnight. Since midnight till no (14hrs) he has had 3. Associated with this he felt lightheaded and also had some SOB at rest. Remote history of colonic polyps removed 30yrs ago. Colonscopy Oct 2015: Impression: 1. Moderate pandiverticulosis coli, left side greater than right. 2. 1 cm polypoid fold in the proximal right colon with adjacent 6 mm sessile polyp, collectively biopsied, followed by cold snare polypectomy. PMH significant for HTN, HLD, CAD status post CA in 1975, PVD status post iliac stent placement, status post pacemaker placement for bradycardia arrhythmia in 2013, and RCC status post nephrectomy on 10/20/17 who presents to the ED complaining of abdominal pain, lightheadedness, shortness of breath, melena. Allergies/Medications Allergies: Coded Allergies: adhesive tape (UNKNOWN 11/06/17) Home Med List: Aspirin (Ecotrin) 81 MG TABLET.DR 1 TAB PO DAILY HEART HEALTH (Reported) Atenolol 25 MG TABLET 1 TAB PO DAILY HEART (Reported) NEXT DOSE TOMORROW Atorvastatin Calcium (Lipitor) 40 MG TABLET 1 TAB PO DAILY CHOLESTEROL ( Reported) NEXT DOSE THIS MARIAH CLOPIDOGREL BISULFATE (Clopidogrel) 75 MG TAB 1 TAB PO DAILY BLOOD THINNER ( Reported) Nifedipine (Nifedipine ER) 30 MG TAB.ER.24 1 TAB PO DAILY HEART (Reported) NEXT DOSE TOMORROW Past History Travel History Traveled to [place] past 21 day No Medical History Blood Transfusion Hx: No Neurological: NONE EENT: hearing loss Cardiovascular: CAD, hypertension, hyperlipidemia, myocardial infarction, PVD, PACEMAKER (BRADYCARDIA) Respiratory: pneumonia Gastrointestinal: remote hx colon polyps. 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 FH: heart attack FATHER, , Age 67; Cause: Myocardial infarct. FH: heart attack Psychosocial History Where Do You Live? Home Who Do You Live With? spouse Services at Home: None Primary Language: Mohawk Smoking Status: Former Smoker (25 pack years) ETOH Use: occasional use Illicit Drug Use: denies illicit drug use Living Will? unknown Power of [place] Clerk/HCP? unknown Functional Ability ADLs Independent: dressing, eating, toileting, bathing. Ambulation: independent IADLs Independent: shopping, housework, finances, food prep, telephone, transportation , medication admin. Review of Systems Review of Systems: Constitutional: Denies: chills, diaphoresis, fever. EENTM: Denies: blurred vision, double vision, visual changes. Cardiovascular: Denies: chest pain, orthopena, palpitations, peripheral edema, syncope. Respiratory: Reports: cough (chronic), short of breath, sputum production (chronic). GI: Reports: abdominal pain, melena, nausea, changes in stool. Denies: vomiting. Genitourinary: Reports: hesitation. Musculoskeletal: Reports: no symptoms. Skin: Reports: no symptoms. Neurological/Psychological: Reports: no symptoms. Exam & Diagnostic Data Vital Signs and I&O Vital Signs Date Time Temp Pulse Resp B/P B/P Pulse O2 O2 Flow FiO2 Mean Ox Delivery Rate 11/06 1200 98 Room Air Room Air 11/06 0800 99 Room Air Room Air 11/06 0800 98.6 70 16 110/60 95 Room Air Room Air 11/06 0400 97 Room Air 11/06 0400 97.6 60 18 110/80 97 Room Air 11/06 0217 64 16 96/61 Room Air 11/06 0100 Room Air 11/06 0100 97.5 67 18 101/58 99 Room Air 11/05 2304 96.0 65 16 103/61 99 Room Air Intake & Output 11/06 1600 11/06 0400 11/05 1600 11/05 0400 11/04 1600 11/04 0400 Intake Total 200 1000 Output Total 300 100 Balance -100 900 Intake, IV 200 1000 Number 3 Bowel Movements Output, Urine 300 100 Patient 202 lb Weight Weight Bed scale Measurement Method Physical Exam General Appearance Alert, Cooperative, No Acute Distress HEENT Atraumatic, PERRLA, EOMI, Mucous Membr. moist/pink Neck Supple, No JVD, +2 Carotid Pulse wo Bruit Cardiovascular Regular Rate, Normal S1, Normal S2 Lungs Clear to Auscultation, Normal Air Movement Abdomen Normal Bowel Sounds, Soft, surgical scars on the L abdomen, no surrounding errythema, no drainage, Mild TTP of the LLQ Neurological Normal Speech, Strength at 5/5 X4 Ext, Normal Tone, Sensation Intact, Cranial Nerves 3-12 NL Extremities No Clubbing, No Cyanosis, No Edema Vascular Normal Pulses, Pulses Symmetrical Rectal patient passed 2 large blood clots per rectum while in the Last 24 Hrs of Labs/Dhruv: Assessment/Plan Assessment/Recommendations: Patient is an 87-year-old male presenting with likley an uper GI bleed of 7-10 days duration, with acceleration yesterday. No clear perspitating factors (has taken baby ASA and plavix for many years). No NSAIDs. No clear upper GI symptoms. PMH significant for HTN, HLD, CAD status post CA in 1975, PVD status post iliac stent placement, status post pacemaker placement for bradycardia arrhythmia in 2013, and RCC status post nephrectomy on 10/20/17. 1. Already receveing PPIs. 2. Transfuse 1-2 units PRBC depending on response. 3. Can take liquid diet. 4. NPO from Wednesday midnight for EGD Wednesday. Other Findings/Comments: x Consult Acknowledgment - Thank you for your consult request.
--- NOTE | 2017-11-06 14:11 | Cons- Nephrology ---
General Information and HPI Consulting Request Date of Consult: 11/06/17 Requested By: Chet Hughes MD Source of Information: patient, family, old records Exam Limitations: no limitations History of Present Illness: This 87-year-old gentleman has a three-year history of having had a mass left kidney. Eventually, it was found that the mass was growing unacceptably. He then underwent a nephrectomy which looks as if it was laparoscopic on 2017. His serum creatinine prior to surgery was 1.04 mg/dL. On 10/22/2017, his serum creatinine was 2.01. He then presented to [place] ER with abdominal pain and was found to have a creatinine of 1.66. He himself has no prior history of kidney disease. There is no history of kidney stones or kidney infections. Has had no history of prostate disease or difficulty voiding. He does have extensive vascular disease coupled with a remote history of myocardial infarction. His serum creatinine presenting to [facility] was 1.7. He otherwise has no history of kidney stones or kidney infections. He is unaware of any blood or protein in his urine. He has had no difficulty voiding. There is no one in the family with kidney disease or dialysis. He now presents with dizziness and melenic stools. He is also had a precipitous drop in his hemoglobin. He mentions some issue with abdominal pain and fat related to his nephrectomized kidney. Allergies/Medications Allergies: Coded Allergies: adhesive tape (UNKNOWN 11/06/17) Home Med List: Aspirin (Ecotrin) 81 MG TABLET.DR 1 TAB PO DAILY HEART HEALTH (Reported) Atenolol 25 MG TABLET 1 TAB PO DAILY HEART (Reported) NEXT DOSE TOMORROW Atorvastatin Calcium (Lipitor) 40 MG TABLET 1 TAB PO DAILY CHOLESTEROL ( Reported) NEXT DOSE THIS MARIAH CLOPIDOGREL BISULFATE (Clopidogrel) 75 MG TAB 1 TAB PO DAILY BLOOD THINNER ( Reported) Nifedipine (Nifedipine ER) 30 MG TAB.ER.24 1 TAB PO DAILY HEART (Reported) NEXT DOSE TOMORROW Review of Systems Review of Systems Constitutional: Reports: weakness. Denies: chills, diaphoresis, fever. EENTM: Denies: blurred vision, double vision, visual changes. Cardiovascular: Denies: chest pain, edema, orthopena, palpitations. Respiratory: Denies: cough, hemoptysis, orthopnea, short of breath. GI: Reports: abdominal pain, constipation, diarrhea, melena, bloody stool, changes in stool. Denies: distention, bowel incontinence. Genitourinary: Denies: discharge, dysuria, frequency, hematuria, hesitation, nocturia, urgency. Musculoskeletal: Denies: back pain, muscle pain, muscle stiffness. Skin: Denies: lesions, rash. Neurological/Psychological: Denies: emotional problems, petit mal seizures, tonic-clonic seizures, weakness. Hematologic/Endocrine: Denies: bruising, bleeding, polyuria. Past History Travel History Traveled to [place] past 21 day No Medical History Blood Transfusion Hx: No Neurological: NONE EENT: hearing loss Cardiovascular: CAD, hypertension, hyperlipidemia, myocardial infarction, PVD, STEMI, PACEMAKER (BRADYCARDIA) Respiratory: pneumonia Gastrointestinal: remote hx colon polyps. 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 FH: heart attack FATHER, , Age 67; Cause: Myocardial infarct. FH: heart attack Psychosocial History Where Do You Live? Home Who Do You Live With? spouse Services at Home: None Primary Language: Iraqi Smoking Status: Former Smoker (25 pack years) ETOH Use: occasional use Illicit Drug Use: denies illicit drug use Living Will? unknown Power of Sports Coordinator/HCP? unknown Functional Ability ADLs Independent: dressing, eating, toileting, bathing. Ambulation: independent IADLs Independent: shopping, housework, finances, food prep, telephone, transportation , medication admin. Exam & Diagnostic Data Vital Signs and I&O Vital Signs Date Time Temp Pulse Resp B/P B/P Pulse O2 O2 Flow FiO2 Mean Ox Delivery Rate 11/06 0800 99 Room Air Room Air 11/06 0800 98.6 70 16 110/60 95 Room Air Room Air 11/06 0400 97 Room Air 11/06 0400 97.6 60 18 110/80 97 Room Air 11/06 0217 64 16 96/61 Room Air 11/06 0100 Room Air 11/06 0100 97.5 67 18 101/58 99 Room Air 11/05 2304 96.0 65 16 103/61 99 Room Air Intake & Output 11/06 1600 11/06 0400 11/05 1600 11/05 0400 11/04 1600 11/04 0400 Intake Total 200 1000 Output Total 300 100 Balance -100 900 Intake, IV 200 1000 Number 3 Bowel Movements Output, Urine 300 100 Patient 202 lb Weight Weight Bed scale Measurement Method Physical Exam General Appearance: well developed/nourished, no apparent distress, alert, awake , comfortable, obese Head: atraumatic, normal appearance Eyes: Bilateral: PERRL, EOMI, pale conjunctivae. Ears, Nose, Throat: normal pharynx, hearing decreased Neck: normal inspection, full range of motion, trachea mid line, no midline tenderness Cardiovascular: regular rate/rhythm, edema, gallop, tachycardia Peripheral Pulses: 2+ popliteal (R), 2+ popliteal (L), 2+ tibialis posterior (R), 2+ tibialis posterior (L), 2+ dorsalis pedis (R), 2+ dorsalis pedis (L) Gastrointestinal: normal bowel sounds, soft, non-tender, well-healed surgical scar left lower quadrant Extremities: normal inspection, normal capillary refill, normal range of motion, no edema Neurologic/Psych: no motor/sensory deficits, awake, alert, oriented x 3 Cranial Nerves: normal speech, PERRL Skin: intact Assessment/Plan Assessment/Recommendations Assessment: 1. Acute kidney injury? Reviewing the records from [place], the patient's serum creatinine prior to his nephrectomy on 10/13/2017 was 1.04. He underwent a nephrectomy on October 20. His serum creatinine today after the surgery on 04/2018 was 1.9 to. His serum creatinine he on 10/22/2017 at 2.01. He was in the emergency room complaining of abdominal pain on 11/01/2017 and his serum creatinine was 1.66. His serum creatinine here at [place] is 1.70. This would seem to be due to his having undergone a nephrectomy. The pattern with a doubling of the serum creatinine is what one would expect with removal of half or perhaps nearly half if not more than half of the functioning kidney mass. Recall that normally the left kidney is often larger than the right. He is making urine. He has no previous history of hematuria or proteinuria. Note well, the serum creatinine of 1.66, was likely prior to the ministration of contrast. This would suggest that his current kidney function is stable. 2. Renal cell CA. He mentions something about a fat pad and possible invasion of the tumor into the fat pad. This of course would not play a role in his current admission. It may be helpful to find out that to which the patient is alluding. 3. Melenic stools. He had another melenic stool while I was examining him. 4. Peripheral vascular disease. He apparently is status post iliac stents as well as carotid endarterectomy 5. Coronary artery disease. 6. Currently would continue with vigorous volume replacement Recommendations: 1. There are no specific recommendations I would make with regards to the kidney aside from a voiding hypotension and maintaining good blood pressure. I do not see any value to a Farmer catheter at this point. Clearly nonsteroidal anti-inflammatory drugs would not be used in the setting of a GI bleed. 2. Continue with daily BMPs 3. Will obtain the pathology report from [facility].
[2017-11-06 16:00] VITALS: BP 110/60
[2017-11-06 21:39] LABS: ABSOLUTE BASOPHIL COUNT 0 /CUMM (0.0-0.2); ABSOLUTE EOSINOPHIL COUNT 0 /CUMM (0.0-0.7); ABSOLUTE GRANULOCYTE CT 8.4 /CUMM (1.4-6.5); ABSOLUTE LYMPH COUNT 2.2 /CUMM (1.2-3.4); ABSOLUTE MONOCYTE COUNT 0.6 /CUMM (0.10-0.60); BASOPHIL % 0.3 % (0.0-2.0); EOSINOPHIL % 0.3 % (0-5); GRANULOCYTE % 74.7 % (42.2-75.2); HEMATOCRIT 23.2 % (42-52); MEAN CORPUSCULAR HGB 29.2 PG (27.0-31.0); MEAN CORPUSCULAR HGB CONC 32.2 G/DL (33.0-37.0); MEAN CORPUSCULAR VOLUME 90.7 FL (80.0-94.0); MEAN PLATELET VOLUME 8.9 FL (7.4-10.4); PLATELET COUNT 333 /CUMM (130-400); RBC DISTRIBUTION WIDTH 13.6 % (11.5-14.5); RED BLOOD CELL CT 2.56 /CUMM (4.70-6.10); WHITE BLOOD CELL COUNT 11.3 /CUMM (4.8-10.8)
--- NOTE | 2017-11-06 23:31 | Event Note ---
Event Note Event Note: 11:31 pm- pt had a bloody bowel movement, following which he had bloody vomitting around 150ml. Pt blod pressure dropped down to 80/60 from 140/90. Vitals -blood pressure 80/60, pulse rate 82, saturation 90%. Patient awake, alert, looks pale not tachycardic, not tachypneic. No evidence of any diaphoresis. Stat normal saline IV bolus given. 1 unit of blood was on, which we increased the flow. Patient blood pressure increased to 120/60, pulse rate 81, saturation 92% on room air. Resident, soil surveyor made aware. Decided to give, one more transfusion. Patient has 3 IV line intact. Stat GI consult was placed. Resident spoke over the phone to Dr. Ortega who suggested to give one more transfusion and watch for further bleeding/hemodynamic instability. He said that he would see the patient in the a.m. Meanwhile if the patient has further episodes of bleeding or becomes hemodynamically unstable, We will inform GI stat. I called his Leslie Song and informed the current status of the patient and the decision to give blood transfusion. She said that she will visit him in the morning. Resident texted Dr. Hughes regarding this patient and the current management. UPDATE: Dr Ortega called and spoke to the nurse and resident - suggested to give one more unit of blood transfusion (total of four) and tp place kim to monitor I&O. He is plannin for a EGD this morning. 5:15am- patient had another bout of bloody vomiting around 75-100 mL followed by melanotic bowel movement. Patient vitals-blood pressure 130/90, heart rate 77, saturation 97 at room air, respiratory rate 30. So far patient has got 4 units of blood transfusion. We will maintain him on IV fluids at [address] Ortega informed about the event over the phone.
[2017-11-07] VITALS: BP 96/50
[2017-11-07 02:00] VITALS: BP 96/50
--- NOTE | 2017-11-07 05:17 | RADIOLOGY REPORT ---
EXAMINATION: XR PORTABLE CHEST CLINICAL INFORMATION: Bloody bowel movement. Vomiting. COMPARISON: 11/05/2017 TECHNIQUE: Portable frontal view of the chest was obtained. FINDINGS: Right chest wall dual-lead pacer with leads overlying the right atrium and right ventricle. Lungs are well expanded. No consolidation, edema, or effusion. No pneumothorax. The cardiomediastinal silhouette is unchanged. IMPRESSION: No acute pulmonary findings.
[2017-11-07 06:34] LABS: ABSOLUTE BASOPHIL COUNT 0.1 /CUMM (0.0-0.2); ABSOLUTE EOSINOPHIL COUNT 0.1 /CUMM (0.0-0.7); ABSOLUTE GRANULOCYTE CT 8.8 /CUMM (1.4-6.5); ABSOLUTE LYMPH COUNT 1.7 /CUMM (1.2-3.4); ABSOLUTE MONOCYTE COUNT 0.7 /CUMM (0.10-0.60); BASOPHIL % 0.6 % (0.0-2.0); EOSINOPHIL % 0.6 % (0-5); HEMATOCRIT 25.3 % (42-52); MEAN CORPUSCULAR HGB 29.9 PG (27.0-31.0); MEAN CORPUSCULAR HGB CONC 33.8 G/DL (33.0-37.0); MEAN CORPUSCULAR VOLUME 88.3 FL (80.0-94.0); MEAN PLATELET VOLUME 9.1 FL (7.4-10.4); PLATELET COUNT 240 /CUMM (130-400); RBC DISTRIBUTION WIDTH 15.6 % (11.5-14.5); RED BLOOD CELL CT 2.87 /CUMM (4.70-6.10); WHITE BLOOD CELL COUNT 11.3 /CUMM (4.8-10.8)
--- NOTE | 2017-11-07 07:57 | Proc Note Endoscopy ---
Endoscopy Procedure Medical History: unchanged (Upper GI bleed) Mental Status: alert/oriented Candidate for Sedation? Yes Procedure Date: 11/07/17 Procedure Type: EGD Clinical Research Scientist: Tod Ortega MD. ASA Classification: III Indications: Upper GI bleed. Instrument: diagnostic gastroscope Patient's Tolerance: good Complications: none Extent Reached: second part of duodenum Procedure: The patient was consented and then placed in L lateral position. The upper endoscope was easliy passed into the esophagus. 1. Orophrynx- normal 2. Esophagus- normal. No ulceration, or varices. 3. Stomach- mucosa pale from anemia. No ulcers, masses, or fresh blood. Specks of dark appearing bloody material in antrum. 4. Large clot in the duodenal bulb. Adjacent to clot appears to be a area of chornic ulceration with scar formation. No active bleeding. 8 injection of epinepherine around the base of the protruding clot, each 1cc. Blanching of base of the clot seen. Area observed for 5 minutes. No active bleeding. Summary: Bleeding from duodenal bulb. 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 Injected with epinepherine. Not bleeding at this time. Please transfuse one more unit of PRBC. Continue iv PPI. If ongoing bleeding will consider re-endscopy V transfer to [facility] for IR based embolisation of feeding vessel.
[2017-11-07 08:00] VITALS: BP 160/70
--- NOTE | 2017-11-07 08:00 | PN- Gastroenterology ---
Assessment/Plan GI Assessment/Recommendations: Patient had evidence of active at approximately 11PM last night. Has been heomdynamically stabelised by ICU team. Awake and alert. Agreeable to EGD. No new sysmptoms such as abdo pain. EGD conducted. Bleeding from duodenal bulb. 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 Injected with epinepherine. Not bleeding at this time. Recommendtaions: Please transfuse one more unit of PRBC. Continue iv PPI. If ongoing bleeding will consider re-endscopy this afternoon with cautery V transfer to [facility] for IR based embolisation of feeding vessel. Subjective Subjective: x Objective Vital Signs and I&Os Vital Signs Date Time Temp Pulse Resp B/P B/P Pulse O2 O2 Flow FiO2 Mean Ox Delivery Rate 11/07 0400 95 Room Air 11/07 0200 95 Room Air 11/07 0200 97.0 70 22 96/50 95 Room Air Room Air 11/07 0000 97.0 64 12 96/50 97 Room Air 11/06 2000 96 Room Air 11/06 1600 97.6 80 18 110/60 99 Room Air Room Air 11/06 1600 99 Room Air Room Air 11/06 1200 98 Room Air Room Air 11/06 0800 99 Room Air Room Air 11/06 0800 98.6 70 16 110/60 95 Room Air Room Air Intake & Output 11/07 1600 11/07 0400 11/06 1600 11/06 0400 11/05 1600 11/05 0400 Intake Total 3383 270 122 9361 Output Total 677 300 750 100 Balance 2706 400 46 900 Intake, Blood 1559 200 Product Intake, IV 1824 543 619 7679 Intake, Oral 0 0 0 Number 3 3 8 Bowel Movements Output, 2 Emesis Output, Urine 675 300 750 100 Patient 202 lb Weight Weight Bed scale Measurement Method Results Pertinent Lab Results: x Laboratory Tests 11/07 11/07 11/06 0616 0615 2338 Chemistry Sodium (137 - 145 mmol/L) 140 Cancelled Potassium (3.5 - 5.1 mmol/L) 4.4 Cancelled Chloride (98 - 107 mmol/L) 115 H Cancelled Carbon Dioxide (22 - 30 mmol/L) 16 L Cancelled Anion Gap (5 - 16) 9 Cancelled BUN (9 - 20 mg/dL) 61 H Cancelled Creatinine (0.7 - 1.2 mg/dL) 1.5 H Cancelled Estimated GFR (>60 ml/min) 44 L Glucose (65 - 99 mg/dL) 122 H Cancelled Calcium (8.4 - 10.2 mg/dL) 7.3 L Cancelled Phosphorus (2.5 - 4.5 mg/dL) 3.2 Cancelled Magnesium (1.6 - 2.3 mg/dL) 1.8 Cancelled Total Bilirubin (0.2 - 1.3 mg/dL) 1.0 Cancelled AST (17 - 59 U/L) 15 L Cancelled ALT (21 - 72 U/L) 33 Cancelled Albumin (3.5 - 5.0 g/dL) 1.9 L Cancelled Hematology CBC w Diff NO MAN DIFF REQ Cancelled WBC (4.8 - 10.8 /CUMM) 11.3 H Cancelled RBC (4.70 - 6.10 /CUMM) 2.87 L Cancelled Hgb (14.0 - 18.0 G/DL) 8.6 L Cancelled Hct (42 - 52 %) 25.3 L Cancelled MCV (80.0 - 94.0 FL) 88.3 Cancelled MCH (27.0 - 31.0 PG) 29.9 Cancelled MCHC (33.0 - 37.0 G/DL) 33.8 Cancelled RDW (11.5 - 14.5 %) 15.6 H Cancelled Plt Count (130 - 400 /CUMM) 240 Cancelled MPV (7.4 - 10.4 FL) 9.1 Cancelled Gran % (42.2 - 75.2 %) 78.0 H Lymphocytes % (20.5 - 51.1 %) 14.6 L Monocytes % (1.7 - 9.3 %) 6.2 Eosinophils % (0 - 5 %) 0.6 Basophils % (0.0 - 2.0 %) 0.6 Absolute Granulocytes (1.4 - 6.5 /CUMM) 8.8 H Absolute Lymphocytes (1.2 - 3.4 /CUMM) 1.7 Absolute Monocytes (0.10 - 0.60 /CUMM) 0.7 H Absolute Eosinophils (0.0 - 0.7 /CUMM) 0.1 Absolute Basophils (0.0 - 0.2 /CUMM) 0.1 11/06 11/06 11/06 2125 1600 1200 Hematology CBC w Diff NO MAN DIFF REQ Cancelled Cancelled WBC (4.8 - 10.8 /CUMM) 11.3 H Cancelled Cancelled RBC (4.70 - 6.10 /CUMM) 2.56 L Cancelled Cancelled Hgb (14.0 - 18.0 G/DL) 7.5 L Cancelled Cancelled Hct (42 - 52 %) 23.2 L Cancelled Cancelled MCV (80.0 - 94.0 FL) 90.7 Cancelled Cancelled MCH (27.0 - 31.0 PG) 29.2 Cancelled Cancelled MCHC (33.0 - 37.0 G/DL) 32.2 L Cancelled Cancelled RDW (11.5 - 14.5 %) 13.6 Cancelled Cancelled Plt Count (130 - 400 /CUMM) 333 Cancelled Cancelled MPV (7.4 - 10.4 FL) 8.9 Cancelled Cancelled Gran % (42.2 - 75.2 %) 74.7 Lymphocytes % (20.5 - 51.1 %) 19.5 L Monocytes % (1.7 - 9.3 %) 5.2 Eosinophils % (0 - 5 %) 0.3 Basophils % (0.0 - 2.0 %) 0.3 Absolute Granulocytes (1.4 - 6.5 /CUMM) 8.4 H Absolute Lymphocytes (1.2 - 3.4 /CUMM) 2.2 Absolute Monocytes (0.10 - 0.60 /CUMM) 0.6 Absolute Eosinophils (0.0 - 0.7 /CUMM) 0 Absolute Basophils (0.0 - 0.2 /CUMM) 0 11/06 11/06 1040 0420 Chemistry Sodium (137 - 145 mmol/L) 136 L Potassium (3.5 - 5.1 mmol/L) 5.2 H Chloride (98 - 107 mmol/L) 107 Carbon Dioxide (22 - 30 mmol/L) 21 L Anion Gap (5 - 16) 8 BUN (9 - 20 mg/dL) 51 H Creatinine (0.7 - 1.2 mg/dL) 1.7 H Estimated GFR (>60 ml/min) 38 L Glucose (65 - 99 mg/dL) 103 H Calcium (8.4 - 10.2 mg/dL) 8.0 L Phosphorus (2.5 - 4.5 mg/dL) 3.4 Magnesium (1.6 - 2.3 mg/dL) 2.0 Total Bilirubin (0.2 - 1.3 mg/dL) 0.3 AST (17 - 59 U/L) 27 ALT (21 - 72 U/L) 54 Troponin I (<0.11 ng/ml) < 0.01 < 0.01 Albumin (3.5 - 5.0 g/dL) 2.4 L Hematology CBC w Diff NO MAN DIFF REQ NO MAN DIFF REQ WBC (4.8 - 10.8 /CUMM) 14.7 H 12.2 H RBC (4.70 - 6.10 /CUMM) 2.66 L 2.96 L Hgb (14.0 - 18.0 G/DL) 8.2 L 9.0 L Hct (42 - 52 %) 24.4 L 27.0 L MCV (80.0 - 94.0 FL) 91.8 91.4 MCH (27.0 - 31.0 PG) 30.8 30.3 MCHC (33.0 - 37.0 G/DL) 33.5 33.1 RDW (11.5 - 14.5 %) 13.1 13.2 Plt Count (130 - 400 /CUMM) 443 H 385 MPV (7.4 - 10.4 FL) 9.5 9.5 Gran % (42.2 - 75.2 %) 74.3 77.5 H Lymphocytes % (20.5 - 51.1 %) 18.2 L 15.7 L Monocytes % (1.7 - 9.3 %) 5.8 5.5 Eosinophils % (0 - 5 %) 1.3 0.9 Basophils % (0.0 - 2.0 %) 0.4 0.4 Absolute Granulocytes (1.4 - 6.5 /CUMM) 11.0 H 9.4 H Absolute Lymphocytes (1.2 - 3.4 /CUMM) 2.7 1.9 Absolute Monocytes (0.10 - 0.60 /CUMM) 0.9 H 0.7 H Absolute Eosinophils (0.0 - 0.7 /CUMM) 0.2 0.1 Absolute Basophils (0.0 - 0.2 /CUMM) 0.1 0 11/05 11/05 2330 2307 Chemistry Sodium (137 - 145 mmol/L) 134 L Potassium (3.5 - 5.1 mmol/L) 4.9 Chloride (98 - 107 mmol/L) 102 Carbon Dioxide (22 - 30 mmol/L) 21 L Anion Gap (5 - 16) 11 BUN (9 - 20 mg/dL) 48 H Creatinine (0.7 - 1.2 mg/dL) 1.7 H Estimated GFR (>60 ml/min) 38 L BUN/Creatinine Ratio (7 - 25 %) 28.2 H Glucose (65 - 99 mg/dL) 145 H Calcium (8.4 - 10.2 mg/dL) 8.5 Total Bilirubin (0.2 - 1.3 mg/dL) 0.4 Direct Bilirubin (< 0.4 mg/dL) 0.3 AST (17 - 59 U/L) 35 ALT (21 - 72 U/L) 64 Alkaline Phosphatase (< 127 U/L) 90 Troponin I (<0.11 ng/ml) < 0.01 Total Protein (6.3 - 8.2 g/dL) 6.2 L Albumin (3.5 - 5.0 g/dL) 3.0 L Amylase (30 - 110 U/L) 38 Lipase (23 - 300 U/L) 178 Coagulation PT (9.4 - 12.5 SEC) 13.4 H INR (0.90 - 1.17) 1.28 H APTT (25 - 37 SEC) 31 Hematology CBC w Diff NO MAN DIFF REQ WBC (4.8 - 10.8 /CUMM) 17.8 H RBC (4.70 - 6.10 /CUMM) 3.54 L Hgb (14.0 - 18.0 G/DL) 10.6 L Hct (42 - 52 %) 32.8 L MCV (80.0 - 94.0 FL) 92.7 MCH (27.0 - 31.0 PG) 30.0 MCHC (33.0 - 37.0 G/DL) 32.4 L RDW (11.5 - 14.5 %) 13.3 Plt Count (130 - 400 /CUMM) 510 H MPV (7.4 - 10.4 FL) 9.1 Gran % (42.2 - 75.2 %) 75.8 H Lymphocytes % (20.5 - 51.1 %) 15.3 L Monocytes % (1.7 - 9.3 %) 6.6 Eosinophils % (0 - 5 %) 1.8 Basophils % (0.0 - 2.0 %) 0.5 Absolute Granulocytes (1.4 - 6.5 /CUMM) 13.5 H Absolute Lymphocytes (1.2 - 3.4 /CUMM) 2.7 Absolute Monocytes (0.10 - 0.60 /CUMM) 1.2 H Absolute Eosinophils (0.0 - 0.7 /CUMM) 0.3 Absolute Basophils (0.0 - 0.2 /CUMM) 0.1 Urines Urine Color (YEL,AMB,STR) YEL Urine Clarity (CLEAR) CLEAR Urine pH (5.0 - 8.0) 6.0 Ur Specific Carson (1.001 - 1.035) 1.020 Urine Protein (NEG,<30 MG/DL) NEG Urine Ketones (NEG) NEG Urine Nitrite (NEG) NEG Urine Bilirubin (NEG) NEG Urine Urobilinogen (0.1 - 1.0 EU/dl) 0.2 Ur Leukocyte Esterase (NEG) NEG Ur Microscopic EXAM NOT REQUIRED Urine Hemoglobin (NEG) NEG Urine Glucose (N MG/DL) NEG
--- NOTE | 2017-11-07 09:05 | PN- Resident CRCU ---
Jaida Hopson 11/07/17 0904: Subjective HPI/CRCU Issues: The patient was seen and examined this morning. He is undergoing blood transfusion for symptomatic therapy. He does complain of shortness of breath and generalized abdominal pain. Had one episode of melena this morning. Vital signs stable. Objective Vital Signs & I&O Last 8 Hrs of Vitals and I&O: Vital Signs Date Time Temp Pulse Resp B/P B/P Pulse O2 O2 Flow FiO2 Mean Ox Delivery Rate 11/07 0400 95 Room Air 11/07 0200 95 Room Air 11/07 0200 97.0 70 22 96/50 95 Room Air Room Air 11/07 0000 97.0 64 12 96/50 97 Room Air 11/06 2000 96 Room Air 11/06 1600 97.6 80 18 110/60 99 Room Air Room Air 11/06 1600 99 Room Air Room Air 11/06 1200 98 Room Air Room Air Intake & Output 11/07 1600 11/07 0800 11/07 0000 Intake Total 3383 700 Output Total 677 300 Balance 2706 400 Intake, Blood 1559 200 Product Intake, IV 1824 500 Intake, Oral 0 0 Number 3 3 Bowel Movements Output, 2 Emesis Output, Urine 675 300 Exam General Appearance: alert, awake, comfortable Head: atraumatic Ears, Nose, Throat: normal pharynx Neck: normal inspection, supple Respiratory: normal breath sounds, chest non-tender, no respiratory distress Cardiovascular: regular rate/rhythm, no murmur Gastrointestinal: soft, epigastric tenderness, NL bowel sounds Extremities: normal inspection, no edema Cranial Nerves: normal hearing, normal speech, PERRL Skin: intact Current Medications: Current Medications Sig/Moira Start time Last Medication Dose Route Stop Time Status Admin Acetaminophen 1,000 MG Q6P PRN 11/06 0945 AC N/A 1 UNIT IV Atorvastatin Calcium 40 MG 1700 11/06 1700 AC 11/06 PO 1610 Ondansetron HCl 4 MG Q6P PRN 11/06 1715 AC IV Pantoprazole Sodium 80 MG Q10H 11/06 2345 AC 11/07 Dextrose/Water 100 ML IV 0629 Pantoprazole Sodium 40 MG BID 11/06 1000 DC 11/06 IV 2127 Phytonadione 5 MG ONCE ONE 11/06 1330 DC 11/06 PO 11/06 1331 1610 Sodium Chloride 1,000 ML Q10H 11/07 0100 AC 11/07 IV 11/08 0659 0159 Sodium Chloride 1,000 ML BOLUS ONE 11/06 2345 DC 11/06 IV 11/07 0044 2347 Sodium Chloride 1,000 ML BOLUS ONE 11/06 2345 DC 11/07 IV 11/07 0044 0005 Sodium Chloride 1,000 ML Q13H 11/06 1015 DC 11/06 IV 1716 Sodium Chloride 1,000 ML ONCE ONE 11/06 0300 DC 11/06 IV 11/06 1619 0408 Impression/Plan Impression/Problem List Impression: This is a 87 year old gentleman with past medical history significant for 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 Patient's H&H remained stable however he is receiving blood transfusion for symptomatic anemia. He is on IV Protonix. Assessment/plan #GI bleeding: Likely upper GI source. Had one episode of melena this morning. Undergoing blood transfusion at this point. * The patient was seen by printed circuit board assembly repairer who is suggestingngoing to consider re-endscopy this afternoon with cautery V transfer to [facility] for IR based embolisation of feeding vessel. * Per attending (Dr. Hughes), spoke with our on-call, to see if the IR procedure can be done at [facility] if necessary; Dr. Huggins suggesting to do CTA abdomen and pelvis (GI bleed CT scan) first to be able to find the source of bleeding. * The patient recently underwent nephrectomy and CTA of the aorta to rule out PE. Given AK I there is also concern for worsening of kidney function with CTA of abdomen and pelvis. * Spoke with printed circuit board assembly repairer, Dr. Ortega, he does not believe that there is an indication to do a CTA at this point. Will consider this test if patient becomes hemodynamically unstable and there is indication of active GI bleeding. * Resident AJ spoke with neurologist on-call Dr. Joy, who is suggesting to avoid a CTA if possible. * Updated patient and family who were agreeable with the above plan. * Continue IV PPI * Monitor CBC q6 hr * Nothing by mouth for possible endoscopy later today #CRUZ: * Monitor BEP * Avoid nephrotoxins * Creatinine improving, continue gentle IV hydration #H/o CAD, hyperlipidemia: * Beta blockers on hold * c/w HOMICIDE INVESTIGATOR statins * Aspirin and Plavix on hold in the setting of GI bleeding #DVT prophylaxis: * Alps #CODE STATUS: * Full code Problem List: 1. Renal failure 2. GI bleed Pain Ratin Pain Location: Abdomen Pain Goal: Pain 4 or less Tomorrow's Labs & Rationales: CBC to monitor H&H ICU bundle to monitor creatinine and electrolytes Plan DVT/Prophylaxis: Chet Wall MD 11/07/17 0944: Attending MD Review Statement Attending Sign Off Attending Cosign Statement: I have: examined this patient, reviewed [employer] EMR data, personally reviewd images, discussd w/resident/PA/CLAMP FORKLIFT OPERATOR, discussed mgmt plan w/cornelia, discussed mgmt plan w/CM, discussed mgmt plan w/pt, agreed w/resident/PA/CLAMP FORKLIFT OPERATOR, amended to note. 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
[2017-11-07 13:53] LABS: ABSOLUTE BASOPHIL COUNT 0 /CUMM (0.0-0.2); ABSOLUTE EOSINOPHIL COUNT 0.1 /CUMM (0.0-0.7); ABSOLUTE GRANULOCYTE CT 11.4 /CUMM (1.4-6.5); ABSOLUTE LYMPH COUNT 1.6 /CUMM (1.2-3.4); ABSOLUTE MONOCYTE COUNT 0.7 /CUMM (0.10-0.60); BASOPHIL % 0.1 % (0.0-2.0); EOSINOPHIL % 0.4 % (0-5); GRANULOCYTE % 82.7 % (42.2-75.2); HEMATOCRIT 28.1 % (42-52); MEAN CORPUSCULAR HGB CONC 33.4 G/DL (33.0-37.0); MEAN CORPUSCULAR VOLUME 86.9 FL (80.0-94.0); MEAN PLATELET VOLUME 9.4 FL (7.4-10.4); PLATELET COUNT 229 /CUMM (130-400); RBC DISTRIBUTION WIDTH 16.9 % (11.5-14.5); RED BLOOD CELL CT 3.24 /CUMM (4.70-6.10); WHITE BLOOD CELL COUNT 13.7 /CUMM (4.8-10.8)
[2017-11-07 16:00] VITALS: BP 119/79
[2017-11-07 18:03] LABS: ABSOLUTE BASOPHIL COUNT 0.1 /CUMM (0.0-0.2); ABSOLUTE EOSINOPHIL COUNT 0.1 /CUMM (0.0-0.7); ABSOLUTE GRANULOCYTE CT 9.6 /CUMM (1.4-6.5); ABSOLUTE LYMPH COUNT 1.8 /CUMM (1.2-3.4); ABSOLUTE MONOCYTE COUNT 0.8 /CUMM (0.10-0.60); BASOPHIL % 0.5 % (0.0-2.0); EOSINOPHIL % 0.7 % (0-5); GRANULOCYTE % 77.7 % (42.2-75.2); HEMATOCRIT 25.7 % (42-52); MEAN CORPUSCULAR HGB CONC 33.4 G/DL (33.0-37.0); MEAN CORPUSCULAR VOLUME 86.7 FL (80.0-94.0); MEAN PLATELET VOLUME 9.2 FL (7.4-10.4); PLATELET COUNT 221 /CUMM (130-400); RBC DISTRIBUTION WIDTH 16.6 % (11.5-14.5); RED BLOOD CELL CT 2.96 /CUMM (4.70-6.10); WHITE BLOOD CELL COUNT 12.4 /CUMM (4.8-10.8)
--- NOTE | 2017-11-07 21:00 | Proc Note Endoscopy ---
Endoscopy Procedure Medical History: unchanged (Upper GI bleed) Mental Status: alert/oriented Heart/Lung Eval Prior to Sedation: within normal limits Candidate for Sedation? Yes Procedure Date: 11/07/17 Procedure Type: EGD Road Inspector: Tod Ortega ASA Classification: III Indications: Upper GI bleed. Instrument: diagnostic gastroscope Patient's Tolerance: good Complications: none Procedure: Procedure: The patient was consented and then placed in L lateral position. The upper endoscope was easliy passed into the esophagus. 1. Orophrynx- normal 2. Esophagus- normal. No ulceration, or varices. 3. Stomach- No ulcers, masses, or fresh blood. Yellow bile present in antrum. No fresh or old blood. 4. Large area of chornic ulceration with scar formation in bulb. at the site of the clot from this AM there was a eschar. No active bleeding. Area of eschar was cauterised six times. No bleeding during or at the end of the procedure. Summary: Bleeding from duodenal bulb. Cauterised. No active bleeding. Please transfuse for Hgb below 8. Continue iv PPI. keep NPO.
[2017-11-07 22:52] LABS: ABSOLUTE BASOPHIL COUNT 0.1 /CUMM (0.0-0.2); ABSOLUTE EOSINOPHIL COUNT 0.1 /CUMM (0.0-0.7); ABSOLUTE LYMPH COUNT 1.9 /CUMM (1.2-3.4); ABSOLUTE MONOCYTE COUNT 0.7 /CUMM (0.10-0.60); BASOPHIL % 0.6 % (0.0-2.0); EOSINOPHIL % 1.5 % (0-5); GRANULOCYTE % 71.3 % (42.2-75.2); HEMATOCRIT 22.6 % (42-52); MEAN CORPUSCULAR HGB 28.8 PG (27.0-31.0); MEAN CORPUSCULAR HGB CONC 33.1 G/DL (33.0-37.0); MEAN CORPUSCULAR VOLUME 86.9 FL (80.0-94.0); MEAN PLATELET VOLUME 9.6 FL (7.4-10.4); PLATELET COUNT 186 /CUMM (130-400); WHITE BLOOD CELL COUNT 9.8 /CUMM (4.8-10.8)
[2017-11-08] VITALS: BP 130/60
[2017-11-08 05:44] LABS: ABSOLUTE BASOPHIL COUNT 0.1 /CUMM (0.0-0.2); ABSOLUTE EOSINOPHIL COUNT 0.2 /CUMM (0.0-0.7); ABSOLUTE GRANULOCYTE CT 7.7 /CUMM (1.4-6.5); ABSOLUTE LYMPH COUNT 1.5 /CUMM (1.2-3.4); ABSOLUTE MONOCYTE COUNT 0.7 /CUMM (0.10-0.60); BASOPHIL % 0.5 % (0.0-2.0); EOSINOPHIL % 2.4 % (0-5); GRANULOCYTE % 74.9 % (42.2-75.2); HEMATOCRIT 26.5 % (42-52); MEAN CORPUSCULAR HGB 29.1 PG (27.0-31.0); MEAN CORPUSCULAR HGB CONC 33.2 G/DL (33.0-37.0); MEAN CORPUSCULAR VOLUME 87.8 FL (80.0-94.0); MEAN PLATELET VOLUME 9.5 FL (7.4-10.4); PLATELET COUNT 194 /CUMM (130-400); RBC DISTRIBUTION WIDTH 16.4 % (11.5-14.5); RED BLOOD CELL CT 3.02 /CUMM (4.70-6.10); WHITE BLOOD CELL COUNT 10.3 /CUMM (4.8-10.8)
[2017-11-08 08:00] VITALS: BP 120/60
--- NOTE | 2017-11-08 08:47 | PN- Resident CRCU ---
Jaida Hopson 11/08/17 0846: Subjective HPI/CRCU Issues: The patient was seen and examined this morning. He underwent a second endoscopy and cauterization of bleeding from duodenal bulb. His H&H is stable. His blood pressure has remained stable. No further episode of bloody emesis or bowel movement. He denies any dizziness, lightheadedness, headache, nausea, vomiting, chest pain , shortness of breath, abdominal pain, urinary symptoms. He has remained nothing by mouth so far per GI recommendations. Objective Vital Signs & I&O Last 8 Hrs of Vitals and I&O: Intake & Output 11/08 1600 Intake Total Output Total Balance Patient 209 lb Weight Weight Bed scale Measurement Method Exam General Appearance: no apparent distress, alert, awake, comfortable Other Physical Findings: Head: atraumatic Ears, Nose, Throat: normal pharynx Neck: normal inspection, supple Respiratory: normal breath sounds, chest non-tender, no respiratory distress Cardiovascular: regular rate/rhythm, no murmur Gastrointestinal: Normal bowel sounds, nontender, nondistended. 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 Patient's H&H remained stable without any further episode of bloody emesis or bowel movement. Assessment/plan #GI bleeding: Likely upper GI source. No further episode of bleeding. * The patient was seen by lotus notes administrator and underwent a second endoscopy and cauterization of bleeding from duodenal bulb * Follow GI recommendations * Continue IV PPI * Monitor CBC q6 hr * Nothing by mouth; will advance diet if okay by GI #CRUZ: * Improving, creatinine 1.4 this morning. * Monitor BEP * Avoid nephrotoxins * Continue gentle IV hydration #H/o CAD, hyperlipidemia: * Beta blockers on hold * c/w MUTUEL CASHIER statins * Aspirin and Plavix on hold in the setting of GI bleeding: To confirm with the GI and to resume these medications. #DVT prophylaxis: * Alps #CODE STATUS: * Full code Problem List: 1. Renal failure 2. GI bleed Pain Ratin Tomorrow's Labs & Rationales: CBC to monitor H&H ICU bundle to monitor electrolytes Plan DVT/Prophylaxis: mayra Hughes MD,Chet 11/08/17 1156: Objective Current Medications: Current Medications Sig/Moira Start time Last Medication Dose Route Stop Time Status Admin Acetaminophen 1,000 MG Q6P PRN 11/06 0945 AC N/A 1 UNIT IV Atorvastatin Calcium 40 MG 1700 11/06 1700 AC 11/08 PO 1640 Magnesium Sulfate 1 GM ONCE ONE 11/08 0630 DC 11/08 Dextrose/Water 100 ML IV 11/08 1029 0630 Ondansetron HCl 4 MG Q6P PRN 11/06 1715 AC IV Pantoprazole Sodium 80 MG Q10H 11/06 2345 AC 11/09 Dextrose/Water 100 ML IV 0758 Sodium Chloride 2 SPRAY Q4P PRN 11/07 1930 AC MARTÍN Attending MD Review Statement Attending Sign Off Attending Cosign Statement: I have: examined this patient, [facility], personally reviewd images, discussd w/resident/PA/SKIP MINER BLASTING, discussed mgmt plan w/cornelia, discussed mgmt plan w/CM, discussed mgmt plan w/pt, agreed w/resident/PA/SKIP MINER BLASTING, amended to note. 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
--- NOTE | 2017-11-08 11:52 | PN- Nephrology ---
Assessment/Plan Nephrology Assessment: 1. Acute kidney injury? His serum creatinine today is 1.4. If anything this may be better than expected. This may reflect some degree of dilution.. 2. Renal cell CA. it may be helpful to find the pathology and the surgical report. 3. Melenic stools. Status post cauterization of the ulcer 4. Peripheral vascular disease. He apparently is status post iliac stents as well as carotid endarterectomy 5. Coronary artery disease. Suggestion: 1. Continue present management Subjective Subjective: Patient looks and feels well. Feels much better. We discussed the fact his creatinines 1.4. Objective Vital Signs and I&Os Vital Signs Date Time Temp Pulse Resp B/P B/P Pulse O2 O2 Flow FiO2 Mean Ox Delivery Rate 11/08 0800 97.1 69 21 120/60 96 Room Air 11/08 0800 96 Room Air 11/08 0400 99 Nasal 2.0L Cannula 11/08 0000 95 Room Air 11/08 0000 97.7 80 19 130/60 95 Room Air 11/07 2000 97 Room Air 11/07 1600 98 Nasal 2.0L Cannula 11/07 1600 70 22 119/79 99 Room Air 11/07 1200 100 Nasal 2.0L Cannula Intake & Output 11/08 1600 11/08 0400 11/07 1600 11/07 0400 11/06 1600 11/06 0400 Intake Total 1099 942.3 4404 497 502 7136 Output Total 532 252 0556 300 750 100 Balance 424 292.3 3127 400 46 900 Intake, Blood 350 1939 200 Product Intake, IV 749 942.3 2465 739 294 5393 Intake, Oral 0 0 0 0 0 Number 0 0 4 3 8 Bowel Movements Output, 2 Emesis Output, Urine 097 617 3339 300 750 100 Patient 209 lb 202 lb Weight Weight Bed scale Bed scale Measurement Method Physical Exam: General Appearance: well developed/nourished, no apparent distress, alert, awake , comfortable, obese Head: atraumatic, normal appearance Eyes: Bilateral: PERRL, EOMI, pale conjunctivae. Ears, Nose, Throat: normal pharynx, hearing decreased Neck: normal inspection, full range of motion, trachea mid line, no midline tenderness Cardiovascular: regular rate/rhythm, edema, gallop, tachycardia Gastrointestinal: normal bowel sounds, soft, non-tender, well-healed surgical scar left lower quadrant Extremities: normal inspection, normal capillary refill, normal range of motion, no edema Neurologic/Psych: no motor/sensory deficits, awake, alert, oriented x 3 Skin: intact, no rash Current Medications: Current Medications Sig/Moira Start time Last Medication Dose Route Stop Time Status Admin Acetaminophen 1,000 MG Q6P PRN 11/06 0945 AC N/A 1 UNIT IV Atorvastatin Calcium 40 MG 1700 11/06 1700 AC 11/06 PO 1610 Magnesium Oxide 400 MG ONE ONE 11/08 0630 CAN PO 11/08 0631 Magnesium Sulfate 1 GM ONCE ONE 11/08 0630 DC 11/08 Dextrose/Water 100 ML IV 11/08 1029 0630 Ondansetron HCl 4 MG Q6P PRN 11/06 1715 AC IV Pantoprazole Sodium 80 MG Q10H 11/06 2345 AC 11/08 Dextrose/Water 100 ML IV 0337 Sodium Chloride 2 SPRAY Q4P PRN 11/07 1930 AC MARTÍN Sodium Chloride 1,000 ML Q10H 11/07 0100 DC 11/08 IV 11/08 0659 0338 Results Pertinent Lab Results: Laboratory Tests 11/08 11/08 1136 0444 Chemistry Sodium (137 - 145 mmol/L) 141 Potassium (3.5 - 5.1 mmol/L) 4.1 Chloride (98 - 107 mmol/L) 116 H Carbon Dioxide (22 - 30 mmol/L) 18 L Anion Gap (5 - 16) 7 BUN (9 - 20 mg/dL) 44 H Creatinine (0.7 - 1.2 mg/dL) 1.4 H Estimated GFR (>60 ml/min) 48 L Glucose (65 - 99 mg/dL) 91 Calcium (8.4 - 10.2 mg/dL) 7.5 L Phosphorus (2.5 - 4.5 mg/dL) 3.1 Magnesium (1.6 - 2.3 mg/dL) 1.8 Total Bilirubin (0.2 - 1.3 mg/dL) 0.5 AST (17 - 59 U/L) 16 L ALT (21 - 72 U/L) 28 Albumin (3.5 - 5.0 g/dL) 1.9 L Hematology CBC w Diff Pending NO MAN DIFF REQ WBC (4.8 - 10.8 /CUMM) Pending 10.3 RBC (4.70 - 6.10 /CUMM) Pending 3.02 L Hgb (14.0 - 18.0 G/DL) Pending 8.8 L Hct (42 - 52 %) Pending 26.5 L MCV (80.0 - 94.0 FL) Pending 87.8 MCH (27.0 - 31.0 PG) Pending 29.1 MCHC (33.0 - 37.0 G/DL) Pending 33.2 RDW (11.5 - 14.5 %) Pending 16.4 H Plt Count (130 - 400 /CUMM) Pending 194 MPV (7.4 - 10.4 FL) Pending 9.5 Gran % (42.2 - 75.2 %) 74.9 Lymphocytes % (20.5 - 51.1 %) 15.1 L Monocytes % (1.7 - 9.3 %) 7.1 Eosinophils % (0 - 5 %) 2.4 Basophils % (0.0 - 2.0 %) 0.5 Absolute Granulocytes (1.4 - 6.5 /CUMM) 7.7 H Absolute Lymphocytes (1.2 - 3.4 /CUMM) 1.5 Absolute Monocytes (0.10 - 0.60 /CUMM) 0.7 H Absolute Eosinophils (0.0 - 0.7 /CUMM) 0.2 Absolute Basophils (0.0 - 0.2 /CUMM) 0.1 11/07 11/07 2146 1745 Hematology CBC w Diff NO MAN DIFF REQ NO MAN DIFF REQ WBC (4.8 - 10.8 /CUMM) 9.8 12.4 H RBC (4.70 - 6.10 /CUMM) 2.60 L 2.96 L Hgb (14.0 - 18.0 G/DL) 7.5 L 8.6 L Hct (42 - 52 %) 22.6 L 25.7 L MCV (80.0 - 94.0 FL) 86.9 86.7 MCH (27.0 - 31.0 PG) 28.8 29.0 MCHC (33.0 - 37.0 G/DL) 33.1 33.4 RDW (11.5 - 14.5 %) 17.0 H 16.6 H Plt Count (130 - 400 /CUMM) 186 221 MPV (7.4 - 10.4 FL) 9.6 9.2 Gran % (42.2 - 75.2 %) 71.3 77.7 H Lymphocytes % (20.5 - 51.1 %) 19.7 L 14.6 L Monocytes % (1.7 - 9.3 %) 6.9 6.5 Eosinophils % (0 - 5 %) 1.5 0.7 Basophils % (0.0 - 2.0 %) 0.6 0.5 Absolute Granulocytes (1.4 - 6.5 /CUMM) 7.0 H 9.6 H Absolute Lymphocytes (1.2 - 3.4 /CUMM) 1.9 1.8 Absolute Monocytes (0.10 - 0.60 /CUMM) 0.7 H 0.8 H Absolute Eosinophils (0.0 - 0.7 /CUMM) 0.1 0.1 Absolute Basophils (0.0 - 0.2 /CUMM) 0.1 0.1 11/07 11/07 1300 0616 Chemistry Sodium (137 - 145 mmol/L) 140 Potassium (3.5 - 5.1 mmol/L) 4.4 Chloride (98 - 107 mmol/L) 115 H Carbon Dioxide (22 - 30 mmol/L) 16 L Anion Gap (5 - 16) 9 BUN (9 - 20 mg/dL) 61 H Creatinine (0.7 - 1.2 mg/dL) 1.5 H Estimated GFR (>60 ml/min) 44 L Glucose (65 - 99 mg/dL) 122 H Calcium (8.4 - 10.2 mg/dL) 7.3 L Phosphorus (2.5 - 4.5 mg/dL) 3.2 Magnesium (1.6 - 2.3 mg/dL) 1.8 Total Bilirubin (0.2 - 1.3 mg/dL) 1.0 AST (17 - 59 U/L) 15 L ALT (21 - 72 U/L) 33 Albumin (3.5 - 5.0 g/dL) 1.9 L Hematology CBC w Diff NO MAN DIFF REQ WBC (4.8 - 10.8 /CUMM) 13.7 H RBC (4.70 - 6.10 /CUMM) 3.24 L Hgb (14.0 - 18.0 G/DL) 9.4 L Hct (42 - 52 %) 28.1 L MCV (80.0 - 94.0 FL) 86.9 MCH (27.0 - 31.0 PG) 29.0 MCHC (33.0 - 37.0 G/DL) 33.4 RDW (11.5 - 14.5 %) 16.9 H Plt Count (130 - 400 /CUMM) 229 MPV (7.4 - 10.4 FL) 9.4 Gran % (42.2 - 75.2 %) 82.7 H Lymphocytes % (20.5 - 51.1 %) 11.4 L Monocytes % (1.7 - 9.3 %) 5.4 Eosinophils % (0 - 5 %) 0.4 Basophils % (0.0 - 2.0 %) 0.1 Absolute Granulocytes (1.4 - 6.5 /CUMM) 11.4 H Absolute Lymphocytes (1.2 - 3.4 /CUMM) 1.6 Absolute Monocytes (0.10 - 0.60 /CUMM) 0.7 H Absolute Eosinophils (0.0 - 0.7 /CUMM) 0.1 Absolute Basophils (0.0 - 0.2 /CUMM) 0 11/07 11/06 0615 2338 Chemistry Sodium Cancelled Potassium Cancelled Chloride Cancelled Carbon Dioxide Cancelled Anion Gap Cancelled BUN Cancelled Creatinine Cancelled Glucose Cancelled Calcium Cancelled Phosphorus Cancelled Magnesium Cancelled Total Bilirubin Cancelled AST Cancelled ALT Cancelled Albumin Cancelled Hematology CBC w Diff NO MAN DIFF REQ Cancelled WBC (4.8 - 10.8 /CUMM) 11.3 H Cancelled RBC (4.70 - 6.10 /CUMM) 2.87 L Cancelled Hgb (14.0 - 18.0 G/DL) 8.6 L Cancelled Hct (42 - 52 %) 25.3 L Cancelled MCV (80.0 - 94.0 FL) 88.3 Cancelled MCH (27.0 - 31.0 PG) 29.9 Cancelled MCHC (33.0 - 37.0 G/DL) 33.8 Cancelled RDW (11.5 - 14.5 %) 15.6 H Cancelled Plt Count (130 - 400 /CUMM) 240 Cancelled MPV (7.4 - 10.4 FL) 9.1 Cancelled Gran % (42.2 - 75.2 %) 78.0 H Lymphocytes % (20.5 - 51.1 %) 14.6 L Monocytes % (1.7 - 9.3 %) 6.2 Eosinophils % (0 - 5 %) 0.6 Basophils % (0.0 - 2.0 %) 0.6 Absolute Granulocytes (1.4 - 6.5 /CUMM) 8.8 H Absolute Lymphocytes (1.2 - 3.4 /CUMM) 1.7 Absolute Monocytes (0.10 - 0.60 /CUMM) 0.7 H Absolute Eosinophils (0.0 - 0.7 /CUMM) 0.1 Absolute Basophils (0.0 - 0.2 /CUMM) 0.1 11/06 11/06 11/06 2125 1600 1200 Hematology CBC w Diff NO MAN DIFF REQ Cancelled Cancelled WBC (4.8 - 10.8 /CUMM) 11.3 H Cancelled Cancelled RBC (4.70 - 6.10 /CUMM) 2.56 L Cancelled Cancelled Hgb (14.0 - 18.0 G/DL) 7.5 L Cancelled Cancelled Hct (42 - 52 %) 23.2 L Cancelled Cancelled MCV (80.0 - 94.0 FL) 90.7 Cancelled Cancelled MCH (27.0 - 31.0 PG) 29.2 Cancelled Cancelled MCHC (33.0 - 37.0 G/DL) 32.2 L Cancelled Cancelled RDW (11.5 - 14.5 %) 13.6 Cancelled Cancelled Plt Count (130 - 400 /CUMM) 333 Cancelled Cancelled MPV (7.4 - 10.4 FL) 8.9 Cancelled Cancelled Gran % (42.2 - 75.2 %) 74.7 Lymphocytes % (20.5 - 51.1 %) 19.5 L Monocytes % (1.7 - 9.3 %) 5.2 Eosinophils % (0 - 5 %) 0.3 Basophils % (0.0 - 2.0 %) 0.3 Absolute Granulocytes (1.4 - 6.5 /CUMM) 8.4 H Absolute Lymphocytes (1.2 - 3.4 /CUMM) 2.2 Absolute Monocytes (0.10 - 0.60 /CUMM) 0.6 Absolute Eosinophils (0.0 - 0.7 /CUMM) 0 Absolute Basophils (0.0 - 0.2 /CUMM) 0 02/24 02/24 1040 0420 Chemistry Sodium (137 - 145 mmol/L) 136 L Potassium (3.5 - 5.1 mmol/L) 5.2 H Chloride (98 - 107 mmol/L) 107 Carbon Dioxide (22 - 30 mmol/L) 21 L Anion Gap (5 - 16) 8 BUN (9 - 20 mg/dL) 51 H Creatinine (0.7 - 1.2 mg/dL) 1.7 H Estimated GFR (>60 ml/min) 38 L Glucose (65 - 99 mg/dL) 103 H Calcium (8.4 - 10.2 mg/dL) 8.0 L Phosphorus (2.5 - 4.5 mg/dL) 3.4 Magnesium (1.6 - 2.3 mg/dL) 2.0 Total Bilirubin (0.2 - 1.3 mg/dL) 0.3 AST (17 - 59 U/L) 27 ALT (21 - 72 U/L) 54 Troponin I (<0.11 ng/ml) < 0.01 < 0.01 Albumin (3.5 - 5.0 g/dL) 2.4 L Hematology CBC w Diff NO MAN DIFF REQ NO MAN DIFF REQ WBC (4.8 - 10.8 /CUMM) 14.7 H 12.2 H RBC (4.70 - 6.10 /CUMM) 2.66 L 2.96 L Hgb (14.0 - 18.0 G/DL) 8.2 L 9.0 L Hct (42 - 52 %) 24.4 L 27.0 L MCV (80.0 - 94.0 FL) 91.8 91.4 MCH (27.0 - 31.0 PG) 30.8 30.3 MCHC (33.0 - 37.0 G/DL) 33.5 33.1 RDW (11.5 - 14.5 %) 13.1 13.2 Plt Count (130 - 400 /CUMM) 443 H 385 MPV (7.4 - 10.4 FL) 9.5 9.5 Gran % (42.2 - 75.2 %) 74.3 77.5 H Lymphocytes % (20.5 - 51.1 %) 18.2 L 15.7 L Monocytes % (1.7 - 9.3 %) 5.8 5.5 Eosinophils % (0 - 5 %) 1.3 0.9 Basophils % (0.0 - 2.0 %) 0.4 0.4 Absolute Granulocytes (1.4 - 6.5 /CUMM) 11.0 H 9.4 H Absolute Lymphocytes (1.2 - 3.4 /CUMM) 2.7 1.9 Absolute Monocytes (0.10 - 0.60 /CUMM) 0.9 H 0.7 H Absolute Eosinophils (0.0 - 0.7 /CUMM) 0.2 0.1 Absolute Basophils (0.0 - 0.2 /CUMM) 0.1 0 11/05 11/05 2330 2307 Chemistry Sodium (137 - 145 mmol/L) 134 L Potassium (3.5 - 5.1 mmol/L) 4.9 Chloride (98 - 107 mmol/L) 102 Carbon Dioxide (22 - 30 mmol/L) 21 L Anion Gap (5 - 16) 11 BUN (9 - 20 mg/dL) 48 H Creatinine (0.7 - 1.2 mg/dL) 1.7 H Estimated GFR (>60 ml/min) 38 L BUN/Creatinine Ratio (7 - 25 %) 28.2 H Glucose (65 - 99 mg/dL) 145 H Calcium (8.4 - 10.2 mg/dL) 8.5 Total Bilirubin (0.2 - 1.3 mg/dL) 0.4 Direct Bilirubin (< 0.4 mg/dL) 0.3 AST (17 - 59 U/L) 35 ALT (21 - 72 U/L) 64 Alkaline Phosphatase (< 127 U/L) 90 Troponin I (<0.11 ng/ml) < 0.01 Total Protein (6.3 - 8.2 g/dL) 6.2 L Albumin (3.5 - 5.0 g/dL) 3.0 L Amylase (30 - 110 U/L) 38 Lipase (23 - 300 U/L) 178 Coagulation PT (9.4 - 12.5 SEC) 13.4 H INR (0.90 - 1.17) 1.28 H APTT (25 - 37 SEC) 31 Hematology CBC w Diff NO MAN DIFF REQ WBC (4.8 - 10.8 /CUMM) 17.8 H RBC (4.70 - 6.10 /CUMM) 3.54 L Hgb (14.0 - 18.0 G/DL) 10.6 L Hct (42 - 52 %) 32.8 L MCV (80.0 - 94.0 FL) 92.7 MCH (27.0 - 31.0 PG) 30.0 MCHC (33.0 - 37.0 G/DL) 32.4 L RDW (11.5 - 14.5 %) 13.3 Plt Count (130 - 400 /CUMM) 510 H MPV (7.4 - 10.4 FL) 9.1 Gran % (42.2 - 75.2 %) 75.8 H Lymphocytes % (20.5 - 51.1 %) 15.3 L Monocytes % (1.7 - 9.3 %) 6.6 Eosinophils % (0 - 5 %) 1.8 Basophils % (0.0 - 2.0 %) 0.5 Absolute Granulocytes (1.4 - 6.5 /CUMM) 13.5 H Absolute Lymphocytes (1.2 - 3.4 /CUMM) 2.7 Absolute Monocytes (0.10 - 0.60 /CUMM) 1.2 H Absolute Eosinophils (0.0 - 0.7 /CUMM) 0.3 Absolute Basophils (0.0 - 0.2 /CUMM) 0.1 Urines Urine Color (YEL,AMB,STR) YEL Urine Clarity (CLEAR) CLEAR Urine pH (5.0 - 8.0) 6.0 Ur Specific [place] (1.001 - 1.035) 1.020 Urine Protein (NEG,<30 MG/DL) NEG Urine Ketones (NEG) NEG Urine Nitrite (NEG) NEG Urine Bilirubin (NEG) NEG Urine Urobilinogen (0.1 - 1.0 EU/dl) 0.2 Ur Leukocyte Esterase (NEG) NEG Ur Microscopic EXAM NOT REQUIRED Urine Hemoglobin (NEG) NEG Urine Glucose (N MG/DL) NEG
[2017-11-08 12:00] VITALS: BP 110/54
[2017-11-08 13:40] LABS: ABSOLUTE BASOPHIL COUNT 0 /CUMM (0.0-0.2); ABSOLUTE EOSINOPHIL COUNT 0.3 /CUMM (0.0-0.7); ABSOLUTE GRANULOCYTE CT 7.1 /CUMM (1.4-6.5); ABSOLUTE LYMPH COUNT 1.3 /CUMM (1.2-3.4); ABSOLUTE MONOCYTE COUNT 0.6 /CUMM (0.10-0.60); BASOPHIL % 0.5 % (0.0-2.0); EOSINOPHIL % 2.9 % (0-5); GRANULOCYTE % 76.2 % (42.2-75.2); HEMATOCRIT 25.1 % (42-52); MEAN CORPUSCULAR HGB 29.4 PG (27.0-31.0); MEAN CORPUSCULAR HGB CONC 33.8 G/DL (33.0-37.0); MEAN CORPUSCULAR VOLUME 86.8 FL (80.0-94.0); MEAN PLATELET VOLUME 9.6 FL (7.4-10.4); PLATELET COUNT 189 /CUMM (130-400); RBC DISTRIBUTION WIDTH 16.4 % (11.5-14.5); RED BLOOD CELL CT 2.89 /CUMM (4.70-6.10); WHITE BLOOD CELL COUNT 9.3 /CUMM (4.8-10.8)
[2017-11-08 16:00] VITALS: BP 116/64
--- NOTE | 2017-11-08 16:01 | PN- Gastroenterology ---
Assessment/Plan GI Assessment/Recommendations: Upper GI bleed secondary to duodenal ulcer, seemingly ceased. Hemodynamically stable. Very slight drop in hematocrit following most recent transfusion (6 units of PRBCs). BUN is declining. Recommendations * Check CBC 2-3 times a day, and maintain hemoglobin greater than 8 * Begin clear liquids * Continue PPI drip Subjective Subjective: The patient denies nausea, vomiting, abdominal pain, dyspepsia. No blood per rectum/melena. No bowel movements. Passing flatus. No dizziness, lightheadedness, syncope. No chest pain, diaphoresis. Objective Vital Signs and I&Os Vital Signs Date Time Temp Pulse Resp B/P B/P Pulse O2 O2 Flow FiO2 Mean Ox Delivery Rate 11/08 1200 Room Air 11/08 1200 97.9 70 13 110/54 96 Room Air 11/08 0800 97.1 69 21 120/60 96 Room Air 11/08 0800 96 Room Air 11/08 0400 99 Nasal 2.0L Cannula 11/08 0000 95 Room Air 11/08 0000 97.7 80 19 130/60 95 Room Air 11/07 2000 97 Room Air 11/07 1600 98 Nasal 2.0L Cannula 11/07 1600 70 22 119/79 99 Room Air Intake & Output 11/08 1600 11/08 0400 11/07 1600 11/07 0400 11/06 1600 11/06 0400 Intake Total 1664.7 942.3 4404 833 298 9127 Output Total 5423 575 3524 300 750 100 Balance 439.7 292.3 3127 400 46 900 Intake, Blood 350 1939 200 Product Intake, IV 1314.7 942.3 2465 611 147 4234 Intake, Oral 0 0 0 0 0 Number 0 0 4 3 8 Bowel Movements Output, 2 Emesis Output, Urine 3809 086 2407 300 750 100 Patient 209 lb 202 lb Weight Weight Bed scale Bed scale Measurement Method Physical Exam: Alert and oriented. Skin normal. No adenopathy. No scleral icterus. Abdomen soft and nondistended with normal bowel sounds, and tenderness only and incision sites. Results Pertinent Lab Results: Laboratory Tests 11/08 11/08 1136 0444 Chemistry Sodium (137 - 145 mmol/L) 141 Potassium (3.5 - 5.1 mmol/L) 4.1 Chloride (98 - 107 mmol/L) 116 H Carbon Dioxide (22 - 30 mmol/L) 18 L Anion Gap (5 - 16) 7 BUN (9 - 20 mg/dL) 44 H Creatinine (0.7 - 1.2 mg/dL) 1.4 H Estimated GFR (>60 ml/min) 48 L Glucose (65 - 99 mg/dL) 91 Calcium (8.4 - 10.2 mg/dL) 7.5 L Phosphorus (2.5 - 4.5 mg/dL) 3.1 Magnesium (1.6 - 2.3 mg/dL) 1.8 Total Bilirubin (0.2 - 1.3 mg/dL) 0.5 AST (17 - 59 U/L) 16 L ALT (21 - 72 U/L) 28 Albumin (3.5 - 5.0 g/dL) 1.9 L Hematology CBC w Diff NO MAN DIFF REQ NO MAN DIFF REQ WBC (4.8 - 10.8 /CUMM) 9.3 10.3 RBC (4.70 - 6.10 /CUMM) 2.89 L 3.02 L Hgb (14.0 - 18.0 G/DL) 8.5 L 8.8 L Hct (42 - 52 %) 25.1 L 26.5 L MCV (80.0 - 94.0 FL) 86.8 87.8 MCH (27.0 - 31.0 PG) 29.4 29.1 MCHC (33.0 - 37.0 G/DL) 33.8 33.2 RDW (11.5 - 14.5 %) 16.4 H 16.4 H Plt Count (130 - 400 /CUMM) 189 194 MPV (7.4 - 10.4 FL) 9.6 9.5 Gran % (42.2 - 75.2 %) 76.2 H 74.9 Lymphocytes % (20.5 - 51.1 %) 14.2 L 15.1 L Monocytes % (1.7 - 9.3 %) 6.2 7.1 Eosinophils % (0 - 5 %) 2.9 2.4 Basophils % (0.0 - 2.0 %) 0.5 0.5 Absolute Granulocytes (1.4 - 6.5 /CUMM) 7.1 H 7.7 H Absolute Lymphocytes (1.2 - 3.4 /CUMM) 1.3 1.5 Absolute Monocytes (0.10 - 0.60 /CUMM) 0.6 0.7 H Absolute Eosinophils (0.0 - 0.7 /CUMM) 0.3 0.2 Absolute Basophils (0.0 - 0.2 /CUMM) 0 0.1 11/07 11/07 2146 1745 Hematology CBC w Diff NO MAN DIFF REQ NO MAN DIFF REQ WBC (4.8 - 10.8 /CUMM) 9.8 12.4 H RBC (4.70 - 6.10 /CUMM) 2.60 L 2.96 L Hgb (14.0 - 18.0 G/DL) 7.5 L 8.6 L Hct (42 - 52 %) 22.6 L 25.7 L MCV (80.0 - 94.0 FL) 86.9 86.7 MCH (27.0 - 31.0 PG) 28.8 29.0 MCHC (33.0 - 37.0 G/DL) 33.1 33.4 RDW (11.5 - 14.5 %) 17.0 H 16.6 H Plt Count (130 - 400 /CUMM) 186 221 MPV (7.4 - 10.4 FL) 9.6 9.2 Gran % (42.2 - 75.2 %) 71.3 77.7 H Lymphocytes % (20.5 - 51.1 %) 19.7 L 14.6 L Monocytes % (1.7 - 9.3 %) 6.9 6.5 Eosinophils % (0 - 5 %) 1.5 0.7 Basophils % (0.0 - 2.0 %) 0.6 0.5 Absolute Granulocytes (1.4 - 6.5 /CUMM) 7.0 H 9.6 H Absolute Lymphocytes (1.2 - 3.4 /CUMM) 1.9 1.8 Absolute Monocytes (0.10 - 0.60 /CUMM) 0.7 H 0.8 H Absolute Eosinophils (0.0 - 0.7 /CUMM) 0.1 0.1 Absolute Basophils (0.0 - 0.2 /CUMM) 0.1 0.1 11/07 11/07 1300 0616 Chemistry Sodium (137 - 145 mmol/L) 140 Potassium (3.5 - 5.1 mmol/L) 4.4 Chloride (98 - 107 mmol/L) 115 H Carbon Dioxide (22 - 30 mmol/L) 16 L Anion Gap (5 - 16) 9 BUN (9 - 20 mg/dL) 61 H Creatinine (0.7 - 1.2 mg/dL) 1.5 H Estimated GFR (>60 ml/min) 44 L Glucose (65 - 99 mg/dL) 122 H Calcium (8.4 - 10.2 mg/dL) 7.3 L Phosphorus (2.5 - 4.5 mg/dL) 3.2 Magnesium (1.6 - 2.3 mg/dL) 1.8 Total Bilirubin (0.2 - 1.3 mg/dL) 1.0 AST (17 - 59 U/L) 15 L ALT (21 - 72 U/L) 33 Albumin (3.5 - 5.0 g/dL) 1.9 L Hematology CBC w Diff NO MAN DIFF REQ WBC (4.8 - 10.8 /CUMM) 13.7 H RBC (4.70 - 6.10 /CUMM) 3.24 L Hgb (14.0 - 18.0 G/DL) 9.4 L Hct (42 - 52 %) 28.1 L MCV (80.0 - 94.0 FL) 86.9 MCH (27.0 - 31.0 PG) 29.0 MCHC (33.0 - 37.0 G/DL) 33.4 RDW (11.5 - 14.5 %) 16.9 H Plt Count (130 - 400 /CUMM) 229 MPV (7.4 - 10.4 FL) 9.4 Gran % (42.2 - 75.2 %) 82.7 H Lymphocytes % (20.5 - 51.1 %) 11.4 L Monocytes % (1.7 - 9.3 %) 5.4 Eosinophils % (0 - 5 %) 0.4 Basophils % (0.0 - 2.0 %) 0.1 Absolute Granulocytes (1.4 - 6.5 /CUMM) 11.4 H Absolute Lymphocytes (1.2 - 3.4 /CUMM) 1.6 Absolute Monocytes (0.10 - 0.60 /CUMM) 0.7 H Absolute Eosinophils (0.0 - 0.7 /CUMM) 0.1 Absolute Basophils (0.0 - 0.2 /CUMM) 0 11/07 11/06 2689 2669 Chemistry Sodium Cancelled Potassium Cancelled Chloride Cancelled Carbon Dioxide Cancelled Anion Gap Cancelled BUN Cancelled Creatinine Cancelled Glucose Cancelled Calcium Cancelled Phosphorus Cancelled Magnesium Cancelled Total Bilirubin Cancelled AST Cancelled ALT Cancelled Albumin Cancelled Hematology CBC w Diff NO MAN DIFF REQ Cancelled WBC (4.8 - 10.8 /CUMM) 11.3 H Cancelled RBC (4.70 - 6.10 /CUMM) 2.87 L Cancelled Hgb (14.0 - 18.0 G/DL) 8.6 L Cancelled Hct (42 - 52 %) 25.3 L Cancelled MCV (80.0 - 94.0 FL) 88.3 Cancelled MCH (27.0 - 31.0 PG) 29.9 Cancelled MCHC (33.0 - 37.0 G/DL) 33.8 Cancelled RDW (11.5 - 14.5 %) 15.6 H Cancelled Plt Count (130 - 400 /CUMM) 240 Cancelled MPV (7.4 - 10.4 FL) 9.1 Cancelled Gran % (42.2 - 75.2 %) 78.0 H Lymphocytes % (20.5 - 51.1 %) 14.6 L Monocytes % (1.7 - 9.3 %) 6.2 Eosinophils % (0 - 5 %) 0.6 Basophils % (0.0 - 2.0 %) 0.6 Absolute Granulocytes (1.4 - 6.5 /CUMM) 8.8 H Absolute Lymphocytes (1.2 - 3.4 /CUMM) 1.7 Absolute Monocytes (0.10 - 0.60 /CUMM) 0.7 H Absolute Eosinophils (0.0 - 0.7 /CUMM) 0.1 Absolute Basophils (0.0 - 0.2 /CUMM) 0.1 11/06 11/06 11/06 2125 1600 1200 Hematology CBC w Diff NO MAN DIFF REQ Cancelled Cancelled WBC (4.8 - 10.8 /CUMM) 11.3 H Cancelled Cancelled RBC (4.70 - 6.10 /CUMM) 2.56 L Cancelled Cancelled Hgb (14.0 - 18.0 G/DL) 7.5 L Cancelled Cancelled Hct (42 - 52 %) 23.2 L Cancelled Cancelled MCV (80.0 - 94.0 FL) 90.7 Cancelled Cancelled MCH (27.0 - 31.0 PG) 29.2 Cancelled Cancelled MCHC (33.0 - 37.0 G/DL) 32.2 L Cancelled Cancelled RDW (11.5 - 14.5 %) 13.6 Cancelled Cancelled Plt Count (130 - 400 /CUMM) 333 Cancelled Cancelled MPV (7.4 - 10.4 FL) 8.9 Cancelled Cancelled Gran % (42.2 - 75.2 %) 74.7 Lymphocytes % (20.5 - 51.1 %) 19.5 L Monocytes % (1.7 - 9.3 %) 5.2 Eosinophils % (0 - 5 %) 0.3 Basophils % (0.0 - 2.0 %) 0.3 Absolute Granulocytes (1.4 - 6.5 /CUMM) 8.4 H Absolute Lymphocytes (1.2 - 3.4 /CUMM) 2.2 Absolute Monocytes (0.10 - 0.60 /CUMM) 0.6 Absolute Eosinophils (0.0 - 0.7 /CUMM) 0 Absolute Basophils (0.0 - 0.2 /CUMM) 0 11/06 11/06 1040 0420 Chemistry Sodium (137 - 145 mmol/L) 136 L Potassium (3.5 - 5.1 mmol/L) 5.2 H Chloride (98 - 107 mmol/L) 107 Carbon Dioxide (22 - 30 mmol/L) 21 L Anion Gap (5 - 16) 8 BUN (9 - 20 mg/dL) 51 H Creatinine (0.7 - 1.2 mg/dL) 1.7 H Estimated GFR (>60 ml/min) 38 L Glucose (65 - 99 mg/dL) 103 H Calcium (8.4 - 10.2 mg/dL) 8.0 L Phosphorus (2.5 - 4.5 mg/dL) 3.4 Magnesium (1.6 - 2.3 mg/dL) 2.0 Total Bilirubin (0.2 - 1.3 mg/dL) 0.3 AST (17 - 59 U/L) 27 ALT (21 - 72 U/L) 54 Troponin I (<0.11 ng/ml) < 0.01 < 0.01 Albumin (3.5 - 5.0 g/dL) 2.4 L Hematology CBC w Diff NO MAN DIFF REQ NO MAN DIFF REQ WBC (4.8 - 10.8 /CUMM) 14.7 H 12.2 H RBC (4.70 - 6.10 /CUMM) 2.66 L 2.96 L Hgb (14.0 - 18.0 G/DL) 8.2 L 9.0 L Hct (42 - 52 %) 24.4 L 27.0 L MCV (80.0 - 94.0 FL) 91.8 91.4 MCH (27.0 - 31.0 PG) 30.8 30.3 MCHC (33.0 - 37.0 G/DL) 33.5 33.1 RDW (11.5 - 14.5 %) 13.1 13.2 Plt Count (130 - 400 /CUMM) 443 H 385 MPV (7.4 - 10.4 FL) 9.5 9.5 Gran % (42.2 - 75.2 %) 74.3 77.5 H Lymphocytes % (20.5 - 51.1 %) 18.2 L 15.7 L Monocytes % (1.7 - 9.3 %) 5.8 5.5 Eosinophils % (0 - 5 %) 1.3 0.9 Basophils % (0.0 - 2.0 %) 0.4 0.4 Absolute Granulocytes (1.4 - 6.5 /CUMM) 11.0 H 9.4 H Absolute Lymphocytes (1.2 - 3.4 /CUMM) 2.7 1.9 Absolute Monocytes (0.10 - 0.60 /CUMM) 0.9 H 0.7 H Absolute Eosinophils (0.0 - 0.7 /CUMM) 0.2 0.1 Absolute Basophils (0.0 - 0.2 /CUMM) 0.1 0 11/05 11/05 2330 2307 Chemistry Sodium (137 - 145 mmol/L) 134 L Potassium (3.5 - 5.1 mmol/L) 4.9 Chloride (98 - 107 mmol/L) 102 Carbon Dioxide (22 - 30 mmol/L) 21 L Anion Gap (5 - 16) 11 BUN (9 - 20 mg/dL) 48 H Creatinine (0.7 - 1.2 mg/dL) 1.7 H Estimated GFR (>60 ml/min) 38 L BUN/Creatinine Ratio (7 - 25 %) 28.2 H Glucose (65 - 99 mg/dL) 145 H Calcium (8.4 - 10.2 mg/dL) 8.5 Total Bilirubin (0.2 - 1.3 mg/dL) 0.4 Direct Bilirubin (< 0.4 mg/dL) 0.3 AST (17 - 59 U/L) 35 ALT (21 - 72 U/L) 64 Alkaline Phosphatase (< 127 U/L) 90 Troponin I (<0.11 ng/ml) < 0.01 Total Protein (6.3 - 8.2 g/dL) 6.2 L Albumin (3.5 - 5.0 g/dL) 3.0 L Amylase (30 - 110 U/L) 38 Lipase (23 - 300 U/L) 178 Coagulation PT (9.4 - 12.5 SEC) 13.4 H INR (0.90 - 1.17) 1.28 H APTT (25 - 37 SEC) 31 Hematology CBC w Diff NO MAN DIFF REQ WBC (4.8 - 10.8 /CUMM) 17.8 H RBC (4.70 - 6.10 /CUMM) 3.54 L Hgb (14.0 - 18.0 G/DL) 10.6 L Hct (42 - 52 %) 32.8 L MCV (80.0 - 94.0 FL) 92.7 MCH (27.0 - 31.0 PG) 30.0 MCHC (33.0 - 37.0 G/DL) 32.4 L RDW (11.5 - 14.5 %) 13.3 Plt Count (130 - 400 /CUMM) 510 H MPV (7.4 - 10.4 FL) 9.1 Gran % (42.2 - 75.2 %) 75.8 H Lymphocytes % (20.5 - 51.1 %) 15.3 L Monocytes % (1.7 - 9.3 %) 6.6 Eosinophils % (0 - 5 %) 1.8 Basophils % (0.0 - 2.0 %) 0.5 Absolute Granulocytes (1.4 - 6.5 /CUMM) 13.5 H Absolute Lymphocytes (1.2 - 3.4 /CUMM) 2.7 Absolute Monocytes (0.10 - 0.60 /CUMM) 1.2 H Absolute Eosinophils (0.0 - 0.7 /CUMM) 0.3 Absolute Basophils (0.0 - 0.2 /CUMM) 0.1 Urines Urine Color (YEL,AMB,STR) YEL Urine Clarity (CLEAR) CLEAR Urine pH (5.0 - 8.0) 6.0 Ur Specific [place] (1.001 - 1.035) 1.020 Urine Protein (NEG,<30 MG/DL) NEG Urine Ketones (NEG) NEG Urine Nitrite (NEG) NEG Urine Bilirubin (NEG) NEG Urine Urobilinogen (0.1 - 1.0 EU/dl) 0.2 Ur Leukocyte Esterase (NEG) NEG Ur Microscopic EXAM NOT REQUIRED Urine Hemoglobin (NEG) NEG Urine Glucose (N MG/DL) NEG
[2017-11-08 18:02] LABS: ABSOLUTE BASOPHIL COUNT 0.1 /CUMM (0.0-0.2); ABSOLUTE EOSINOPHIL COUNT 0.4 /CUMM (0.0-0.7); ABSOLUTE GRANULOCYTE CT 9.2 /CUMM (1.4-6.5); ABSOLUTE LYMPH COUNT 1.4 /CUMM (1.2-3.4); ABSOLUTE MONOCYTE COUNT 0.7 /CUMM (0.10-0.60); BASOPHIL % 0.4 % (0.0-2.0); GRANULOCYTE % 79.2 % (42.2-75.2); HEMATOCRIT 28.1 % (42-52); MEAN CORPUSCULAR HGB 29.6 PG (27.0-31.0); MEAN CORPUSCULAR VOLUME 87.2 FL (80.0-94.0); MEAN PLATELET VOLUME 9.2 FL (7.4-10.4); PLATELET COUNT 228 /CUMM (130-400); RBC DISTRIBUTION WIDTH 16.5 % (11.5-14.5); RED BLOOD CELL CT 3.23 /CUMM (4.70-6.10); WHITE BLOOD CELL COUNT 11.7 /CUMM (4.8-10.8)
[2017-11-09] VITALS: BP 102/50
[2017-11-09 05:03] LABS: ABSOLUTE BASOPHIL COUNT 0 /CUMM (0.0-0.2); ABSOLUTE EOSINOPHIL COUNT 0.3 /CUMM (0.0-0.7); ABSOLUTE GRANULOCYTE CT 5.9 /CUMM (1.4-6.5); WHITE BLOOD CELL COUNT 8.2 /CUMM (4.8-10.8)
[2017-11-09 05:14] LABS: ABSOLUTE LYMPH COUNT 1.2 /CUMM (1.2-3.4); ABSOLUTE MONOCYTE COUNT 0.6 /CUMM (0.10-0.60); BASOPHIL % 0.6 % (0.0-2.0); EOSINOPHIL % 4.1 % (0-5); GRANULOCYTE % 72.7 % (42.2-75.2); MEAN CORPUSCULAR HGB 29.4 PG (27.0-31.0); MEAN CORPUSCULAR HGB CONC 33.7 G/DL (33.0-37.0); MEAN CORPUSCULAR VOLUME 87.5 FL (80.0-94.0); MEAN PLATELET VOLUME 8.9 FL (7.4-10.4); PLATELET COUNT 170 /CUMM (130-400); RBC DISTRIBUTION WIDTH 16.1 % (11.5-14.5); RED BLOOD CELL CT 2.57 /CUMM (4.70-6.10)
[2017-11-09 05:29] LABS: HEMATOCRIT 22.5 % (42-52)
[2017-11-09 08:00] VITALS: BP 110/50
--- NOTE | 2017-11-09 08:34 | PN- Resident CRCU ---
Jaida Hopson 11/09/17 0834: Subjective HPI/CRCU Issues: The patient was seen and examined. He offers no complaints. Denies headache, dizziness, lightheadedness, nausea, vomiting, chest pain, shortness of breath, abdominal pain, urinary symptoms. Patient had an episode of bowel movement, dark color/with old blood last evening. No further episode of bloody bowel movement or emesis. Hemoglobin this morning 7.6, hematocrit 22.5, talked with the GI on-call, Dr. Pleitez he recommended to repeat a CBC stat and if below 8 transfuse 1 unit. Objective Vital Signs & I&O Last 8 Hrs of Vitals and I&O: Intake & Output 11/09 1600 Intake Total 770 Output Total 550 Balance 220 Intake, IV 330 Intake, Oral 440 Number 0 Bowel Movements Output, Urine 550 Patient 211 lb Weight Weight Bed scale Measurement Method Exam General Appearance: no apparent distress, alert, awake Other Physical Findings: Head: atraumatic Ears, Nose, Throat: normal pharynx Neck: normal inspection, supple Respiratory: normal breath sounds, chest non-tender, no respiratory distress Cardiovascular: regular rate/rhythm, no murmur Gastrointestinal: Normal bowel sounds, nontender, nondistended Extremities: normal inspection, no edema Cranial Nerves: normal hearing, normal speech, PERRL Skin: intact Current Medications: Current Medications Sig/Moira Start time Last Medication Dose Route Stop Time Status Admin Acetaminophen 1,000 MG Q6P PRN 11/06 0945 AC N/A 1 UNIT IV Atorvastatin Calcium 40 MG 1700 11/06 1700 AC 11/08 PO 1640 Ondansetron HCl 4 MG Q6P PRN 11/06 1715 AC IV Pantoprazole Sodium 80 MG Q10H 11/06 2345 AC 11/09 Dextrose/Water 100 ML IV 0758 Sodium Chloride 2 SPRAY Q4P PRN 11/07 1930 AC MARTÍN Impression/Plan Impression/Problem List Impression: This is a 87 year old gentleman with past medical history significant for recent nephrectomy due to RCC, CAD with history of HI, and multiple cardiovasular risk factors seen for evaluation of abdominal pain, lightheadedness, shortness of breath, and black/tarry stools admitted for evaluation of probable GI bleed and symptomatic anemia. Patient's H&H remained stable without any further episode of bloody emesis or bowel movement. Assessment/plan #GI bleeding: Likely upper GI source. No further episode of bleeding. 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 #DVT prophylaxis: * Alps #CODE STATUS: * Full code Problem List: 1. GI bleed Pain Ratin Tomorrow's Labs & Rationales: CBC to monitor H&H ICU bundle to monitor electrolytes Plan DVT/Prophylaxis: mechanical Saul CORTES,Chet 11/09/17 1106: Attending MD Review Statement Attending Sign Off Attending Cosign Statement: I have: examined this patient, reviewed avalbl EMR data, personally reviewd images, discussd w/resident/PA/WEATHERIZATION AND HOUSING INSPECTOR, discussed mgmt plan w/cornelia, discussed mgmt plan w/CM, discussed mgmt plan w/pt, agreed w/resident/PA/WEATHERIZATION AND HOUSING INSPECTOR, amended to note. Other Findings: IChet M.D. have examined this patient, reviewed available EMR data, personally reviewed images, discussed with resident/PA/WEATHERIZATION AND HOUSING INSPECTOR, discussed management plan with housestaff and nursing staff, discussed managment plan all of healthcare providers, discussed management plan with patient and/or family, agreed with resident/PA/WEATHERIZATION AND HOUSING INSPECTOR. The past history and parts of the chart have been autopopulated. 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
[2017-11-09 09:06] LABS: ABSOLUTE BASOPHIL COUNT 0 /CUMM (0.0-0.2); ABSOLUTE EOSINOPHIL COUNT 0.3 /CUMM (0.0-0.7); ABSOLUTE LYMPH COUNT 1.1 /CUMM (1.2-3.4); ABSOLUTE MONOCYTE COUNT 0.5 /CUMM (0.10-0.60); BASOPHIL % 0.4 % (0.0-2.0); EOSINOPHIL % 3.2 % (0-5); GRANULOCYTE % 75.9 % (42.2-75.2); HEMATOCRIT 23.1 % (42-52); MEAN CORPUSCULAR HGB 29.4 PG (27.0-31.0); MEAN CORPUSCULAR HGB CONC 33.9 G/DL (33.0-37.0); MEAN CORPUSCULAR VOLUME 86.6 FL (80.0-94.0); MEAN PLATELET VOLUME 9.1 FL (7.4-10.4); PLATELET COUNT 175 /CUMM (130-400); RBC DISTRIBUTION WIDTH 15.8 % (11.5-14.5); RED BLOOD CELL CT 2.67 /CUMM (4.70-6.10)
--- NOTE | 2017-11-09 09:16 | Cons- General Surgery ---
General Information and HPI Consulting Request Date of Consult: 11/09/17 Requested By: Chet Hughes MD Reason for Consult: duodenal ulcer History of Present Illness: Patient s/p left nephrectomy for renal cell cancer three weeks ago at [facility]. Presents to [place] with upper gi bleed secondary to duodenal ulcer. baseline on plavix and asa--held since admission. Two endoscopies have been performed for non-hemodynamically significant blood loss. The first endoscopy showed adherent clot. EPI injection was perfomed. He rebled and underwent repeat endoscopy at which time (11/07) cauterization was performed. Since then the hb has slowly trended down. A total of 6 units packed cells transfused, the last of which was 11/08. Patient is asymptomatic lying in bed. No melanotic stools per his report. Allergies/Medications Allergies: Coded Allergies: adhesive tape (UNKNOWN 11/06/17) Home Med List: Aspirin (Ecotrin) 81 MG TABLET.DR 1 TAB PO DAILY HEART HEALTH (Reported) Atenolol 25 MG TABLET 1 TAB PO DAILY HEART (Reported) NEXT DOSE TOMORROW Atorvastatin Calcium (Lipitor) 40 MG TABLET 1 TAB PO DAILY CHOLESTEROL ( Reported) NEXT DOSE THIS MARIAH CLOPIDOGREL BISULFATE (Clopidogrel) 75 MG TAB 1 TAB PO DAILY BLOOD THINNER ( Reported) Nifedipine (Nifedipine ER) 30 MG TAB.ER.24 1 TAB PO DAILY HEART (Reported) NEXT DOSE TOMORROW Current Medications: Current Medications Sig/Moira Start time Last Medication Dose Route Stop Time Status Admin Acetaminophen 1,000 MG Q6P PRN 11/06 0945 AC N/A 1 UNIT IV Atorvastatin Calcium 40 MG 1700 11/06 1700 AC 11/08 PO 1640 Magnesium Sulfate 1 GM ONCE ONE 11/08 0630 DC 11/08 Dextrose/Water 100 ML IV 11/08 1029 0630 Ondansetron HCl 4 MG Q6P PRN 11/06 1715 AC IV Pantoprazole Sodium 80 MG Q10H 11/06 2345 AC 11/09 Dextrose/Water 100 ML IV 0758 Sodium Chloride 2 SPRAY Q4P PRN 11/07 1930 AC MARTÍN Past History Medical History Blood Transfusion Hx: No Neurological: NONE EENT: hearing loss Cardiovascular: CAD, hypertension, hyperlipidemia, myocardial infarction, PVD, STEMI, PACEMAKER (BRADYCARDIA) Respiratory: pneumonia Gastrointestinal: remote hx colon polyps. 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 FH: heart attack FATHER, , Age 67; Cause: Myocardial infarct. FH: heart attack Psychosocial History Where Do You Live? Home Who Do You Live With? spouse Services at Home: None Primary Language: Turkmen Smoking Status: Former Smoker (25 pack years) ETOH Use: occasional use Illicit Drug Use: denies illicit drug use Living Will? unknown Power of Trimmer Loader/HCP? unknown Functional Ability ADLs Independent: dressing, eating, toileting, bathing. Ambulation: independent IADLs Independent: shopping, housework, finances, food prep, telephone, transportation , medication admin. Review of Systems Review of Systems: no cp, dyspnea, abdominal pain. melena on admission. none in past 24 hours. surgical pain in LLQ improved. remainder 8 points neg. Exam & Diagnostic Data Vital Signs and I&O Vital Signs Date Time Temp Pulse Resp B/P B/P Pulse O2 O2 Flow FiO2 Mean Ox Delivery Rate 11/09 0800 Room Air 11/09 0800 97.8 75 19 110/50 97 Room Air 11/09 0000 98.2 62 21 102/50 94 Room Air 11/08 1600 Room Air 11/08 1600 97.4 70 70 116/64 96 Room Air 11/08 1200 Room Air 11/08 1200 97.9 70 13 110/54 96 Room Air Intake & Output 11/09 1600 11/09 0800 11/09 0000 11/08 1600 11/08 0800 11/08 0000 Intake Total 370 678 565.7 1099 942.3 Output Total 300 600 550 675 650 Balance 70 78 15.7 424 292.3 Intake, Blood 350 Product Intake, IV 70 238 565.7 749 942.3 Intake, Oral 300 440 0 0 Number 0 0 Bowel Movements Output, Stool 200 Output, Urine 300 400 550 675 650 Patient 211 lb 209 lb 209 lb Weight Weight Bed scale Bed scale Measurement Method Physical Exam: gen; looks well/age. nad heent; anicteric, perrl, eomi abd; soft, nt. healing LLQ surgical scar and lapaorscopic port sites LUQ. Last 24 Hours of Labs: Laboratory Tests 11/09 11/09 0857 0445 Hematology CBC w Diff NO MAN DIFF REQ NO MAN DIFF REQ WBC (4.8 - 10.8 /CUMM) 8.0 8.2 RBC (4.70 - 6.10 /CUMM) 2.67 L 2.57 L Hgb (14.0 - 18.0 G/DL) 7.8 L 7.6 L Hct (42 - 52 %) 23.1 L 22.5 L MCV (80.0 - 94.0 FL) 86.6 87.5 MCH (27.0 - 31.0 PG) 29.4 29.4 MCHC (33.0 - 37.0 G/DL) 33.9 33.7 RDW (11.5 - 14.5 %) 15.8 H 16.1 H Plt Count (130 - 400 /CUMM) 175 170 MPV (7.4 - 10.4 FL) 9.1 8.9 Gran % (42.2 - 75.2 %) 75.9 H 72.7 Lymphocytes % (20.5 - 51.1 %) 13.9 L 15.0 L Monocytes % (1.7 - 9.3 %) 6.6 7.6 Eosinophils % (0 - 5 %) 3.2 4.1 Basophils % (0.0 - 2.0 %) 0.4 0.6 Absolute Granulocytes (1.4 - 6.5 /CUMM) 6.0 5.9 Absolute Lymphocytes (1.2 - 3.4 /CUMM) 1.1 L 1.2 Absolute Monocytes (0.10 - 0.60 /CUMM) 0.5 0.6 Absolute Eosinophils (0.0 - 0.7 /CUMM) 0.3 0.3 Absolute Basophils (0.0 - 0.2 /CUMM) 0 0 11/08 11/08 7046 1136 Hematology CBC w Diff NO MAN DIFF REQ NO MAN DIFF REQ WBC (4.8 - 10.8 /CUMM) 11.7 H 9.3 RBC (4.70 - 6.10 /CUMM) 3.23 L 2.89 L Hgb (14.0 - 18.0 G/DL) 9.6 L 8.5 L Hct (42 - 52 %) 28.1 L 25.1 L MCV (80.0 - 94.0 FL) 87.2 86.8 MCH (27.0 - 31.0 PG) 29.6 29.4 MCHC (33.0 - 37.0 G/DL) 34.0 33.8 RDW (11.5 - 14.5 %) 16.5 H 16.4 H Plt Count (130 - 400 /CUMM) 228 189 MPV (7.4 - 10.4 FL) 9.2 9.6 Gran % (42.2 - 75.2 %) 79.2 H 76.2 H Lymphocytes % (20.5 - 51.1 %) 11.6 L 14.2 L Monocytes % (1.7 - 9.3 %) 5.8 6.2 Eosinophils % (0 - 5 %) 3.0 2.9 Basophils % (0.0 - 2.0 %) 0.4 0.5 Absolute Granulocytes (1.4 - 6.5 /CUMM) 9.2 H 7.1 H Absolute Lymphocytes (1.2 - 3.4 /CUMM) 1.4 1.3 Absolute Monocytes (0.10 - 0.60 /CUMM) 0.7 H 0.6 Absolute Eosinophils (0.0 - 0.7 /CUMM) 0.4 0.3 Absolute Basophils (0.0 - 0.2 /CUMM) 0.1 0 Assessment/Plan Assessment/Plan Duodenal ulcer with bleeding, s/p cauterization with control. Unclear if there is persistence of the bleed. Would not pursue surgery now. If there is concern for recurrent bleeding, I feel that another attempt at endoscopic control with clip ligation should be attempted first. Copies To: Mayela CORTES,M. Luke Consult Acknowledgment - Thank you for your consult request.
[2017-11-09 12:00] VITALS: BP 102/52
[2017-11-09 15:04] LABS: ABSOLUTE BASOPHIL COUNT 0 /CUMM (0.0-0.2); ABSOLUTE EOSINOPHIL COUNT 0.3 /CUMM (0.0-0.7); ABSOLUTE GRANULOCYTE CT 6.3 /CUMM (1.4-6.5); ABSOLUTE LYMPH COUNT 1.2 /CUMM (1.2-3.4); ABSOLUTE MONOCYTE COUNT 0.6 /CUMM (0.10-0.60); BASOPHIL % 0.3 % (0.0-2.0); EOSINOPHIL % 3.6 % (0-5); GRANULOCYTE % 74.2 % (42.2-75.2); HEMATOCRIT 25.4 % (42-52); MEAN CORPUSCULAR HGB CONC 33.1 G/DL (33.0-37.0); MEAN CORPUSCULAR VOLUME 87.7 FL (80.0-94.0); MEAN PLATELET VOLUME 9.8 FL (7.4-10.4); PLATELET COUNT 179 /CUMM (130-400); RBC DISTRIBUTION WIDTH 15.4 % (11.5-14.5); RED BLOOD CELL CT 2.89 /CUMM (4.70-6.10); WHITE BLOOD CELL COUNT 8.4 /CUMM (4.8-10.8)
[2017-11-09 16:00] VITALS: BP 110/52
--- NOTE | 2017-11-09 16:31 | PN- Gastroenterology ---
Assessment/Plan GI Assessment/Recommendations: ASSESSMENT: 1. Duodenal Bulbar Ulcer 2. Acute Blood Loss Anemia 3. S/P Right Nephrectomy 4. Chronic Kidney Disease I had a 20 minute discussion with Mr. Pearl and his daughter. I explained to them that the stool that was seen last night was likely old blood. I explained that there were no signs of active bleeding at this time. They were concerned that he had received 7 units of blood. However I explained to them that in all likelihood when he was admitted his true hematocrit was much less than 9.6 due to severe hemoconcentration. I reviewed all his labs with them and showed them that on admission his BUN had been 66 and it is now 41. I explained to them the mechanics of hemoconcentration and re-equilibration. Further I reviewed the endoscopic findings and explain to them that the ulcer described in the second endoscopy had eschar with no signs of bleeding and ascites the risk of rebleeding is small. I also discussed with them and review the CT findings which showed no evidence of intra-abdominal bleeding. I also explained to them that there was no physical findings to suggest bleeding at the surgical site and that given his elevated creatinine that repeat CT scan was in advisable. Further I explained to them that he had shown marked clinical improvement further making this possibility less likely. All questions were answered. RECOMMENDATIONS: 1. H/H every 12 hours 2. Continue clear liquids until a.m. If no further bleeding, advance diet to full liquids. 3. Continue Protonix drip until a.m. and if no further bleeding change to IV Protonix 40 mg q 12 hours. 4. I am site damage prevention technician tonight, if there are any signs of clinically or hemodynamically significant bleeding call immediately. Subjective Subjective: Patient has no epigastric pain. This tolerating clear liquid diet. Is eager to advance diet. Would like to get out of bed and start exercising. Patient had 200 mL of dark brown liquid stool last night with some spots of nahomi maroon- colored blood admixed with it. Patient has had no episodes of hypotension. Patient has paced rhythm. Objective Vital Signs and I&Os Vital Signs Date Time Temp Pulse Resp B/P B/P Pulse O2 O2 Flow FiO2 Mean Ox Delivery Rate 11/09 1200 Room Air 11/09 1200 98.2 69 21 102/52 97 Room Air 11/09 0800 Room Air 11/09 0800 97.8 75 19 110/50 97 Room Air 11/09 0000 98.2 62 21 102/50 94 Room Air Intake & Output 11/09 1600 11/09 0400 11/08 0400 11/07 040 Intake Total 6442 287 6884.7 942.3 4404 700 Output Total 508 341 4765 650 1277 300 Balance 290 78 439.7 292.3 3127 400 Intake, Blood 350 1939 200 Product Intake, IV 071 402 0182.7 942.3 2465 500 Intake, Oral 740 440 0 0 0 0 Number 0 0 0 4 3 Bowel Movements Output, 2 Emesis Output, Stool 200 Output, Urine 543 489 6487 650 1275 300 Patient 211 lb 209 lb Weight Weight Bed scale Bed scale Measurement Method Physical Exam General Appearance: well developed/nourished, no apparent distress, alert, awake Head: normal appearance Neck: supple Respiratory: normal breath sounds, lungs clear Cardiovascular: regular rate/rhythm Abdomen: normal bowel sounds, soft, non-tender, surgical scar in RLQ clean and dry. port scars clean and dry. mild tenderness appropriate for post-surgical state. Neurologic/Psychiatric: alert, oriented x 3 Skin: pallor Current Medications: Current Medications Sig/Moira Start time Last Medication Dose Route Stop Time Status Admin Acetaminophen 1,000 MG Q6P PRN 11/06 0945 AC N/A 1 UNIT IV Atorvastatin Calcium 40 MG 1700 11/06 1700 AC 11/08 PO 1640 Ondansetron HCl 4 MG Q6P PRN 11/06 1715 AC IV Pantoprazole Sodium 80 MG Q10H 11/06 2345 AC 11/09 Dextrose/Water 100 ML IV 0758 Sodium Chloride 2 SPRAY Q4P PRN 11/07 1930 AC MARTÍN Results Pertinent Lab Results: Laboratory Tests 11/09 11/09 1410 0857 Chemistry Sodium (137 - 145 mmol/L) 136 L Potassium (3.5 - 5.1 mmol/L) 3.8 Chloride (98 - 107 mmol/L) 109 H Carbon Dioxide (22 - 30 mmol/L) 21 L Anion Gap (5 - 16) 7 BUN (9 - 20 mg/dL) 28 H Creatinine (0.7 - 1.2 mg/dL) 1.5 H Estimated GFR (>60 ml/min) 44 L Glucose (65 - 99 mg/dL) 93 Calcium (8.4 - 10.2 mg/dL) 7.7 L Phosphorus (2.5 - 4.5 mg/dL) 3.1 Magnesium (1.6 - 2.3 mg/dL) 1.9 Total Bilirubin (0.2 - 1.3 mg/dL) 0.7 AST (17 - 59 U/L) 25 ALT (21 - 72 U/L) 36 Albumin (3.5 - 5.0 g/dL) 2.0 L Hematology CBC w Diff NO MAN DIFF REQ NO MAN DIFF REQ WBC (4.8 - 10.8 /CUMM) 8.4 8.0 RBC (4.70 - 6.10 /CUMM) 2.89 L 2.67 L Hgb (14.0 - 18.0 G/DL) 8.4 L 7.8 L Hct (42 - 52 %) 25.4 L 23.1 L MCV (80.0 - 94.0 FL) 87.7 86.6 MCH (27.0 - 31.0 PG) 29.0 29.4 MCHC (33.0 - 37.0 G/DL) 33.1 33.9 RDW (11.5 - 14.5 %) 15.4 H 15.8 H Plt Count (130 - 400 /CUMM) 179 175 MPV (7.4 - 10.4 FL) 9.8 9.1 Gran % (42.2 - 75.2 %) 74.2 75.9 H Lymphocytes % (20.5 - 51.1 %) 14.7 L 13.9 L Monocytes % (1.7 - 9.3 %) 7.2 6.6 Eosinophils % (0 - 5 %) 3.6 3.2 Basophils % (0.0 - 2.0 %) 0.3 0.4 Absolute Granulocytes (1.4 - 6.5 /CUMM) 6.3 6.0 Absolute Lymphocytes (1.2 - 3.4 /CUMM) 1.2 1.1 L Absolute Monocytes (0.10 - 0.60 /CUMM) 0.6 0.5 Absolute Eosinophils (0.0 - 0.7 /CUMM) 0.3 0.3 Absolute Basophils (0.0 - 0.2 /CUMM) 0 0 11/09 11/08 1394 0429 Hematology CBC w Diff NO MAN DIFF REQ NO MAN DIFF REQ WBC (4.8 - 10.8 /CUMM) 8.2 11.7 H RBC (4.70 - 6.10 /CUMM) 2.57 L 3.23 L Hgb (14.0 - 18.0 G/DL) 7.6 L 9.6 L Hct (42 - 52 %) 22.5 L 28.1 L MCV (80.0 - 94.0 FL) 87.5 87.2 MCH (27.0 - 31.0 PG) 29.4 29.6 MCHC (33.0 - 37.0 G/DL) 33.7 34.0 RDW (11.5 - 14.5 %) 16.1 H 16.5 H Plt Count (130 - 400 /CUMM) 170 228 MPV (7.4 - 10.4 FL) 8.9 9.2 Gran % (42.2 - 75.2 %) 72.7 79.2 H Lymphocytes % (20.5 - 51.1 %) 15.0 L 11.6 L Monocytes % (1.7 - 9.3 %) 7.6 5.8 Eosinophils % (0 - 5 %) 4.1 3.0 Basophils % (0.0 - 2.0 %) 0.6 0.4 Absolute Granulocytes (1.4 - 6.5 /CUMM) 5.9 9.2 H Absolute Lymphocytes (1.2 - 3.4 /CUMM) 1.2 1.4 Absolute Monocytes (0.10 - 0.60 /CUMM) 0.6 0.7 H Absolute Eosinophils (0.0 - 0.7 /CUMM) 0.3 0.4 Absolute Basophils (0.0 - 0.2 /CUMM) 0 0.1 11/08 11/08 1136 0444 Chemistry Sodium (137 - 145 mmol/L) 141 Potassium (3.5 - 5.1 mmol/L) 4.1 Chloride (98 - 107 mmol/L) 116 H Carbon Dioxide (22 - 30 mmol/L) 18 L Anion Gap (5 - 16) 7 BUN (9 - 20 mg/dL) 44 H Creatinine (0.7 - 1.2 mg/dL) 1.4 H Estimated GFR (>60 ml/min) 48 L Glucose (65 - 99 mg/dL) 91 Calcium (8.4 - 10.2 mg/dL) 7.5 L Phosphorus (2.5 - 4.5 mg/dL) 3.1 Magnesium (1.6 - 2.3 mg/dL) 1.8 Total Bilirubin (0.2 - 1.3 mg/dL) 0.5 AST (17 - 59 U/L) 16 L ALT (21 - 72 U/L) 28 Albumin (3.5 - 5.0 g/dL) 1.9 L Hematology CBC w Diff NO MAN DIFF REQ NO MAN DIFF REQ WBC (4.8 - 10.8 /CUMM) 9.3 10.3 RBC (4.70 - 6.10 /CUMM) 2.89 L 3.02 L Hgb (14.0 - 18.0 G/DL) 8.5 L 8.8 L Hct (42 - 52 %) 25.1 L 26.5 L MCV (80.0 - 94.0 FL) 86.8 87.8 MCH (27.0 - 31.0 PG) 29.4 29.1 MCHC (33.0 - 37.0 G/DL) 33.8 33.2 RDW (11.5 - 14.5 %) 16.4 H 16.4 H Plt Count (130 - 400 /CUMM) 189 194 MPV (7.4 - 10.4 FL) 9.6 9.5 Gran % (42.2 - 75.2 %) 76.2 H 74.9 Lymphocytes % (20.5 - 51.1 %) 14.2 L 15.1 L Monocytes % (1.7 - 9.3 %) 6.2 7.1 Eosinophils % (0 - 5 %) 2.9 2.4 Basophils % (0.0 - 2.0 %) 0.5 0.5 Absolute Granulocytes (1.4 - 6.5 /CUMM) 7.1 H 7.7 H Absolute Lymphocytes (1.2 - 3.4 /CUMM) 1.3 1.5 Absolute Monocytes (0.10 - 0.60 /CUMM) 0.6 0.7 H Absolute Eosinophils (0.0 - 0.7 /CUMM) 0.3 0.2 Absolute Basophils (0.0 - 0.2 /CUMM) 0 0.1 11/07 11/07 6500 4556 Hematology CBC w Diff NO MAN DIFF REQ NO MAN DIFF REQ WBC (4.8 - 10.8 /CUMM) 9.8 12.4 H RBC (4.70 - 6.10 /CUMM) 2.60 L 2.96 L Hgb (14.0 - 18.0 G/DL) 7.5 L 8.6 L Hct (42 - 52 %) 22.6 L 25.7 L MCV (80.0 - 94.0 FL) 86.9 86.7 MCH (27.0 - 31.0 PG) 28.8 29.0 MCHC (33.0 - 37.0 G/DL) 33.1 33.4 RDW (11.5 - 14.5 %) 17.0 H 16.6 H Plt Count (130 - 400 /CUMM) 186 221 MPV (7.4 - 10.4 FL) 9.6 9.2 Gran % (42.2 - 75.2 %) 71.3 77.7 H Lymphocytes % (20.5 - 51.1 %) 19.7 L 14.6 L Monocytes % (1.7 - 9.3 %) 6.9 6.5 Eosinophils % (0 - 5 %) 1.5 0.7 Basophils % (0.0 - 2.0 %) 0.6 0.5 Absolute Granulocytes (1.4 - 6.5 /CUMM) 7.0 H 9.6 H Absolute Lymphocytes (1.2 - 3.4 /CUMM) 1.9 1.8 Absolute Monocytes (0.10 - 0.60 /CUMM) 0.7 H 0.8 H Absolute Eosinophils (0.0 - 0.7 /CUMM) 0.1 0.1 Absolute Basophils (0.0 - 0.2 /CUMM) 0.1 0.1 11/07 11/07 1300 0616 Chemistry Sodium (137 - 145 mmol/L) 140 Potassium (3.5 - 5.1 mmol/L) 4.4 Chloride (98 - 107 mmol/L) 115 H Carbon Dioxide (22 - 30 mmol/L) 16 L Anion Gap (5 - 16) 9 BUN (9 - 20 mg/dL) 61 H Creatinine (0.7 - 1.2 mg/dL) 1.5 H Estimated GFR (>60 ml/min) 44 L Glucose (65 - 99 mg/dL) 122 H Calcium (8.4 - 10.2 mg/dL) 7.3 L Phosphorus (2.5 - 4.5 mg/dL) 3.2 Magnesium (1.6 - 2.3 mg/dL) 1.8 Total Bilirubin (0.2 - 1.3 mg/dL) 1.0 AST (17 - 59 U/L) 15 L ALT (21 - 72 U/L) 33 Albumin (3.5 - 5.0 g/dL) 1.9 L Hematology CBC w Diff NO MAN DIFF REQ WBC (4.8 - 10.8 /CUMM) 13.7 H RBC (4.70 - 6.10 /CUMM) 3.24 L Hgb (14.0 - 18.0 G/DL) 9.4 L Hct (42 - 52 %) 28.1 L MCV (80.0 - 94.0 FL) 86.9 MCH (27.0 - 31.0 PG) 29.0 MCHC (33.0 - 37.0 G/DL) 33.4 RDW (11.5 - 14.5 %) 16.9 H Plt Count (130 - 400 /CUMM) 229 MPV (7.4 - 10.4 FL) 9.4 Gran % (42.2 - 75.2 %) 82.7 H Lymphocytes % (20.5 - 51.1 %) 11.4 L Monocytes % (1.7 - 9.3 %) 5.4 Eosinophils % (0 - 5 %) 0.4 Basophils % (0.0 - 2.0 %) 0.1 Absolute Granulocytes (1.4 - 6.5 /CUMM) 11.4 H Absolute Lymphocytes (1.2 - 3.4 /CUMM) 1.6 Absolute Monocytes (0.10 - 0.60 /CUMM) 0.7 H Absolute Eosinophils (0.0 - 0.7 /CUMM) 0.1 Absolute Basophils (0.0 - 0.2 /CUMM) 0 11/07 11/06 7415 8806 Chemistry Sodium Cancelled Potassium Cancelled Chloride Cancelled Carbon Dioxide Cancelled Anion Gap Cancelled BUN Cancelled Creatinine Cancelled Glucose Cancelled Calcium Cancelled Phosphorus Cancelled Magnesium Cancelled Total Bilirubin Cancelled AST Cancelled ALT Cancelled Albumin Cancelled Hematology CBC w Diff NO MAN DIFF REQ Cancelled WBC (4.8 - 10.8 /CUMM) 11.3 H Cancelled RBC (4.70 - 6.10 /CUMM) 2.87 L Cancelled Hgb (14.0 - 18.0 G/DL) 8.6 L Cancelled Hct (42 - 52 %) 25.3 L Cancelled MCV (80.0 - 94.0 FL) 88.3 Cancelled MCH (27.0 - 31.0 PG) 29.9 Cancelled MCHC (33.0 - 37.0 G/DL) 33.8 Cancelled RDW (11.5 - 14.5 %) 15.6 H Cancelled Plt Count (130 - 400 /CUMM) 240 Cancelled MPV (7.4 - 10.4 FL) 9.1 Cancelled Gran % (42.2 - 75.2 %) 78.0 H Lymphocytes % (20.5 - 51.1 %) 14.6 L Monocytes % (1.7 - 9.3 %) 6.2 Eosinophils % (0 - 5 %) 0.6 Basophils % (0.0 - 2.0 %) 0.6 Absolute Granulocytes (1.4 - 6.5 /CUMM) 8.8 H Absolute Lymphocytes (1.2 - 3.4 /CUMM) 1.7 Absolute Monocytes (0.10 - 0.60 /CUMM) 0.7 H Absolute Eosinophils (0.0 - 0.7 /CUMM) 0.1 Absolute Basophils (0.0 - 0.2 /CUMM) 0.1 11/06 2125 Hematology CBC w Diff NO MAN DIFF REQ WBC (4.8 - 10.8 /CUMM) 11.3 H RBC (4.70 - 6.10 /CUMM) 2.56 L Hgb (14.0 - 18.0 G/DL) 7.5 L Hct (42 - 52 %) 23.2 L MCV (80.0 - 94.0 FL) 90.7 MCH (27.0 - 31.0 PG) 29.2 MCHC (33.0 - 37.0 G/DL) 32.2 L RDW (11.5 - 14.5 %) 13.6 Plt Count (130 - 400 /CUMM) 333 MPV (7.4 - 10.4 FL) 8.9 Gran % (42.2 - 75.2 %) 74.7 Lymphocytes % (20.5 - 51.1 %) 19.5 L Monocytes % (1.7 - 9.3 %) 5.2 Eosinophils % (0 - 5 %) 0.3 Basophils % (0.0 - 2.0 %) 0.3 Absolute Granulocytes (1.4 - 6.5 /CUMM) 8.4 H Absolute Lymphocytes (1.2 - 3.4 /CUMM) 2.2 Absolute Monocytes (0.10 - 0.60 /CUMM) 0.6 Absolute Eosinophils (0.0 - 0.7 /CUMM) 0 Absolute Basophils (0.0 - 0.2 /CUMM) 0
[2017-11-10] VITALS: BP 100/40
[2017-11-10 02:43] LABS: ABSOLUTE BASOPHIL COUNT 0 /CUMM (0.0-0.2); ABSOLUTE EOSINOPHIL COUNT 0.4 /CUMM (0.0-0.7); ABSOLUTE LYMPH COUNT 1.3 /CUMM (1.2-3.4); ABSOLUTE MONOCYTE COUNT 0.7 /CUMM (0.10-0.60); BASOPHIL % 0.4 % (0.0-2.0); EOSINOPHIL % 4.7 % (0-5); GRANULOCYTE % 70.9 % (42.2-75.2); HEMATOCRIT 26.3 % (42-52); MEAN CORPUSCULAR HGB 29.1 PG (27.0-31.0); MEAN CORPUSCULAR HGB CONC 33.3 G/DL (33.0-37.0); MEAN CORPUSCULAR VOLUME 87.5 FL (80.0-94.0); MEAN PLATELET VOLUME 9.7 FL (7.4-10.4); PLATELET COUNT 189 /CUMM (130-400); RBC DISTRIBUTION WIDTH 15.6 % (11.5-14.5); RED BLOOD CELL CT 3.01 /CUMM (4.70-6.10); WHITE BLOOD CELL COUNT 8.4 /CUMM (4.8-10.8)
[2017-11-10 08:00] VITALS: BP 112/60
--- NOTE | 2017-11-10 08:33 | PN- Resident CRCU ---
Jaida Hopson 11/10/17 0833: Subjective HPI/CRCU Issues: The patient was seen and examined. He offers no complaints. He denies any dizziness, lightheadedness, headache, chest pain, shortness of breath, nausea, vomiting, abdominal pain, urinary symptoms. Vital signs and blood pressure remain stable. He had an episode of dark-colored bowel movement. Objective Vital Signs & I&O Last 8 Hrs of Vitals and I&O: Intake & Output 11/10 1600 Intake Total 265 Output Total 850 Balance -585 Intake, IV 25 Intake, Oral 240 Output, Stool 200 Output, Urine 650 Exam General Appearance: no apparent distress Other Physical Findings: Head: atraumatic Ears, Nose, Throat: normal pharynx Neck: normal inspection, supple Respiratory: normal breath sounds, chest non-tender, no respiratory distress Cardiovascular: regular rate/rhythm, no murmur Gastrointestinal: Normal bowel sounds, nontender, nondistended Extremities: normal inspection, no edema Cranial Nerves: normal hearing, normal speech, PERRL Skin: intact Current Medications: Current Medications Sig/Moira Start time Last Medication Dose Route Stop Time Status Admin Acetaminophen 1,000 MG Q6P PRN 11/06 0945 AC N/A 1 UNIT IV Atenolol 25 MG DAILY 11/11 1000 AC PO Atorvastatin Calcium 40 MG 1700 11/06 1700 AC 11/10 PO 1702 Diphenhydramine HCl 1 LUKE Q4 PRN 11/10 1011 AC TOP Diphenhydramine HCl 1 LUKE ONCE PRN 11/10 0215 DC 11/10 TOP 0306 Melatonin 5 MG AT BEDTIME PRN 11/10 1600 AC PO Nifedipine 30 MG DAILY 11/10 1829 AC PO Omeprazole 40 MG BID 11/10 2200 AC PO Ondansetron HCl 4 MG Q6P PRN 11/06 1715 AC IV Pantoprazole Sodium 80 MG Q10H 11/06 2345 DC 11/10 Dextrose/Water 100 ML IV 0011 Sodium Chloride 2 SPRAY Q4P PRN 11/07 1930 AC MARTÍN Zolpidem Tartrate 5 MG ONCE ONE 11/10 1830 DC PO 11/10 1831 Impression/Plan Impression/Problem List Impression: This is a 87 year old gentleman with past medical history significant for 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 Patient's H&H remained stable without any further episode of bloody emesis or bowel movement. Assessment/plan #GI bleeding: Likely upper GI source. No further episode of bloody emesis or bright red blood per rectum. * The patient was seen by operations technician and underwent a second endoscopy and cauterization of bleeding from duodenal bulb * Had an episode of episode of dark-colored bowel movement; stat CBC checked; stable. * H&H stable * Surgery did not recommend any procedures * Follow GI recommendations * Start on by mouth PPIs * Monitor CBC daily * Advance diet as tolerated #CRUZ: * Improving * Monitor BEP * Avoid nephrotoxins #H/o CAD, hyperlipidemia: * Resume nifedipine tonight, atenolol from tomorrow. * c/w DISTRICT DIRECTOR statins * Aspirin and Plavix on hold in the setting of GI bleeding: * GI suggested to start aspirin and Plavix at least 1 week after today. * Patient's Plavix has been held 1 week prior to admission for surgery. * GI suggesting to get cardiology input to see if it is okay to have the patient off aspirin and Plavix for at least 1 week after discharge. 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 #DVT prophylaxis: * Alps #CODE STATUS: * Full code Problem List: 1. GI bleed Pain Ratin Tomorrow's Labs & Rationales: CBC to monitor H&H ICU bundle to monitor electrolytes Plan DVT/Prophylaxis: Chet Wall MD 11/10/17 1058: Attending MD Review Statement Attending Sign Off Attending Cosign Statement: I have: examined this patient, reviewed avalbl EMR data, personally reviewd images, discussd w/resident/PA/DATA ADMINISTRATOR, discussed mgmt plan w/cornelia, discussed mgmt plan w/CM, discussed mgmt plan w/pt, agreed w/resident/PA/DATA ADMINISTRATOR, amended to note. Other Findings: Chet Waters M.D. have examined this patient, reviewed available EMR data, personally reviewed images, discussed with resident/PA/DATA ADMINISTRATOR, discussed management plan with housestaff and nursing staff, discussed managment plan all of healthcare providers, discussed management plan with patient and/or family, agreed with resident/PA/DATA ADMINISTRATOR. The past history and parts of the chart have been autopopulated. 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
[2017-11-10 12:00] VITALS: BP 122/60
[2017-11-10 12:01] LABS: ABSOLUTE BASOPHIL COUNT 0 /CUMM (0.0-0.2); ABSOLUTE EOSINOPHIL COUNT 0.3 /CUMM (0.0-0.7); ABSOLUTE GRANULOCYTE CT 6.1 /CUMM (1.4-6.5); ABSOLUTE LYMPH COUNT 1.2 /CUMM (1.2-3.4); ABSOLUTE MONOCYTE COUNT 0.6 /CUMM (0.10-0.60); BASOPHIL % 0.4 % (0.0-2.0); GRANULOCYTE % 74.2 % (42.2-75.2); HEMATOCRIT 28.2 % (42-52); MEAN CORPUSCULAR HGB 29.5 PG (27.0-31.0); MEAN CORPUSCULAR HGB CONC 33.7 G/DL (33.0-37.0); MEAN CORPUSCULAR VOLUME 87.5 FL (80.0-94.0); MEAN PLATELET VOLUME 9.4 FL (7.4-10.4); PLATELET COUNT 194 /CUMM (130-400); RBC DISTRIBUTION WIDTH 15.8 % (11.5-14.5); RED BLOOD CELL CT 3.23 /CUMM (4.70-6.10); WHITE BLOOD CELL COUNT 8.2 /CUMM (4.8-10.8)
[2017-11-10 16:00] VITALS: BP 124/60
[2017-11-10] MEDS ORDERED: NIFEDIPINE ER30 M2 PO (18:27)
[2017-11-10] MEDS ORDERED: LO-DOSE ASPIRIN81 MG PO (18:28)
[2017-11-10] MEDS ORDERED: ATENOLOL25 M1 PO (18:28)
[2017-11-10] MEDS ORDERED: LIPITOR40 M1 PO (18:29)
[2017-11-10] MEDS ORDERED: CLOPIDOGREL75 M1 PO (18:29)
--- NOTE | 2017-11-10 18:58 | PN- Gastroenterology ---
Assessment/Plan GI Assessment/Recommendations: *87 y/o male with numerous medical issues, followed by Dr. Pedro for primary care, Dr. Rahul Astorga for cardiology, & Dr. Ramos Rizvi at [facility] urology, with hypertension, hyperlipidemia, PPM for bradyarrhythmia in 04/2014, mild obesity, PVD, post bilateral CEA and bilateral iliac stents, on outpatient aspirin and Plavix. History of NE in 1975 when he had angioplasty. 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 Ex-15- pack-year cigarette smoker stopped in 1975. No EtOH. No family history of GI issues. I previously saw the patient in inpatient GI consultation at [place] in 07/2015, when he presented with pancreatitis. The etiology of the pancreatitis was unknown. He did have known gallstones, which were felt to be incidental in nature. He had nl LFTs then. At that time, he had normal triglyceride 78, normal IgG 4 of 18, going against autoimmune pancreatitis, borderline elevated CA 199 of 41 (normal < 34), probably of no clinical significance in view of subsequent essentially normal EUS. There was no evidence of pancreas divisum. 08/13/15: [facility] EUS per Dr. Mosley- 19 mm pancreatic neck cysts with biopsy 6- benign pathology. The specimen showed low cellularity, consistent with non- mucinous cyst. There was no evidence of malignancy. 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 *I had last seen him in the office 09/20/15. 10/29: Follow-up colonoscopy to the cecum- pandiverticulosis coli, left side greater than right, 1 cm polypoid fold in the proximal right colon plus adjacent 6 mm sessile polyp, both removed, with pathology showing normal tissue. Based on the patient's advanced age, no indication for a follow-up surveillance colonoscopy, regarding his prior history of colon polyps. 11/09/16: MRI abdomen with & w/o gadolinium- pancreatitis, stable cyst at pancreatic neck ( 1.1 x 1.3 x 1.2 cm), without change from 09/03/10 & subcm cyst at pancreatic tail communicating with PD (? if present on prior CT). Additionally, there was a slowly enlarging solid left renal mass on MRI, for which the patient was referred to his PMD/urology. I also contacted Dr. Mosley, and there was felt to be no indication for a repeat EUS. The patient ultimately had 10/20/17: * left nephrectomy at [facility] by Dr. Ramos Rizvi. There also was removal of a large fat pad, reportedly "containing a few malignant cells related to the renal cell CA" per pt (await pathology). *The pt was admitted to [facility] 11/06/17 with melena, anemia, & elevated BUN. He had been off his ECASA 81 mg daily & Plavix for most of the month of 10/2017, due to his renal surgery. *He was seen in covering GI consultation by Dr. Ortega 11/06/17. The pt had EGD x [address] Ortega on 11/07/17. The first one showed a non-bleeding large clot in the duodenal bulb, adjacent to which was an ulceration with a scar, txd with monotx with Epinephrine. The second one later that day showed a large area of chronic ulceration with scar formation in the duodenal bulb, at the previous site of the clot, revealing an eschar, which was successfully cauterized. No clips were placed. He had required a total of 7u PRBC this admssion, last on . He was seen in surgical consultation by Dr. Bazzi 11/09/17. *The general consensus was that although the patient had 2 EGDs on 11/07/17, the first one was only with monotherapy with Epinephrine, the second one with cautery, and so the if patient actively re-bled, the plan would be to repeat a third EGD, possibly with clips, prior to considering surgery. His GFR was somewhat decreased, post left nephrectomy, making potential angiography with Gelfoam embolization slightly more risky. The patient was on a Protonix drip until 11/10/17, & he was switched to Omeprazole 40 mg po BID on 11/10/17 (to be switched to Protonix 40 mg po BID, in view of eventual resumption of Plavix down the road). After the weekend, my partners, Dr.H. Mata & Dr. Harvey had seen the patient in coverage. *I returned to see the pt in the ICU 11/10/17.(*Old records reviewed in detail. Dr. Ortega's covering GI consult of 11/06/17 reviewed, along with his 11/07/17: EGD x 2, & subsequent GI progress notes). *As of 11/10/2017, the patient was hemodynamically stable & afebrile, with O2 sat RA 95%. He was tolerating solids po. He was on PPI twice a day. He denied any hematemesis or BRBPR. He had a dark brown pudding-like bowel movement. His BUN had dropped appropriately and his Hgb was stable. He denied any abdominal pain, nausea, vomiting, chest pain, or shortness of breath. *I also spoke with the patient's , Leslie, & his daughter, Nica, at the bedside, as per patient request. 11/05/17: PT 13.4, INR 1.28, PTT 31, nl A/L, Ca 8.5, nl LFTs xc alb 3.0, glob 3.2, troponin < 0.01 x 3 11/10/17: WBC 8.2, H/H 9.5/28.2, PLT 194, BUN/Cr 22/1.5, GFR 44. *SUGGEST- Switch po Omeprazole to Protonix 40 mg po BID. Check CBC & BUN daily. Check stool Ag H. pylori. May downgrade from ICU. Advise cardiology input to clear patient to remain off ECASA 81 mg daily & Plavix for 1 more week. Await [facility] urology pathology report from Dr. Ramos Rizvi, regarding 10/20/17: left nephrectomy and resection of left perirenal fat pad. Mobilize patient. Heart healthy diet. With advanced age, no need for follow-up surveillance colonoscopy, regarding past history of colon polyps. At present, no plans for repeat EGD, unless the patient actively rebleeds. If stable, may discharge to home tomorrow. Advise repeat CBC 1 week post D/C. Advise f/u GI OV in 2-3 weeks, at which point, will arrange for follow-up annual MRCP, regarding pancreatic cyst (as GFR decreased, will defer simultaneous MRI with gadolinium). The above was discussed with the patient, the patient's , Leslie, the patient 's daughter, Nica, & with the ICU medical housestaff. 1/2 hour of ICU care was spent on the patient. Problem List: 1. Duodenal ulcer with hemorrhage 2. Anemia 3. Pancreatic cyst 4. Cholelithiasis Subjective Subjective: *I returned to see the pt in the ICU 11/10/17. (*Old records reviewed in detail. Dr. Ortega's covering GI consult of 11/06/17 reviewed, along with his 11/07/17: EGD x 2, & subsequent GI progress notes). *As of 11/10/2017, the patient was hemodynamically stable & afebrile, with O2 sat RA 95%. He was tolerating solids po. He was on PPI twice a day. He denied any hematemesis or BRBPR. He had a dark brown pudding-like bowel movement. His BUN had dropped appropriately and his Hgb was stable. He denied any abdominal pain, nausea, vomiting, chest pain, or shortness of breath. I also spoke with the patient's , Leslie, & his daughter, Nica, at the bedside, as per patient request. 11/05/17: PT 13.4, INR 1.28, PTT 31, nl A/L, Ca 8.5, nl LFTs xc alb 3.0, glob 3.2, troponin < 0.01 x 3 11/10/17: WBC 8.2, H/H 9.5/28.2, PLT 194, BUN/Cr 22/1.5, GFR 44. Review of Systems: Full 14 point review of systems otherwise noncontributory, and as above. Constitutional: Reports: no symptoms. EENTM: Reports: no symptoms. Cardiovascular: Reports: no symptoms. Respiratory: Reports: no symptoms. GI: Reports: melena- resolved. Denies: abdominal pain, bloating, distention, hematemesis, constipation, diarrhea, nausea, bloody stool, changes in stool, vomiting. Genitourinary: Reports: no symptoms. Musculoskeletal: Reports: no symptoms. Skin: Reports: no symptoms. Neurological/Psychological: Reports: no symptoms, tremors. Hematologic/Endocrine: Reports: no symptoms. Immunologic/Allergic: Reports: no symptoms. Review of Systems All Other Systems: Reviewed and Negative Objective Vital Signs and I&Os Vital Signs Date Time Temp Pulse Resp B/P B/P Pulse O2 O2 Flow FiO2 Mean Ox Delivery Rate 11/10 1600 Room Air 11/10 1600 98.7 69 25 124/60 95 Room Air 11/10 1200 Room Air 11/10 1200 98.0 70 20 122/60 99 Room Air 11/10 0800 97.5 72 20 112/60 97 Room Air 11/10 0400 93 Room Air 11/10 0000 96 Room Air 11/10 0000 98.7 64 18 100/40 96 Room Air Intake & Output 11/10 1600 11/10 0400 11/09 0400 11/08 0400 Intake Total 888 074 6430 678 1664.7 942.3 Output Total 2100 400 474 555 8025 650 Balance -1635 -80 290 78 439.7 292.3 Intake, Blood 350 Product Intake, IV 105 80 024 058 3786.7 942.3 Intake, Oral 360 240 740 440 0 0 Number 0 0 0 0 Bowel Movements Output, Stool 200 200 Output, Urine 1900 400 458 608 4716 650 Patient 205 lb 211 lb 209 lb Weight Weight Bed scale Bed scale Bed scale Measurement Method Physical Exam: Well-developed, well-nourished, slightly obese, elderly male, in no apparent distress. Sclera anicteric. Conjunctiva pink. Oropharynx clear. No oral thrush. No aphthous ulcers. There is no adenopathy, thyromegaly, or JVD. B/L CEA. No peripheral stigmata of inflammatory bowel disease or chronic liver disease on exam. No spiders on the anterior chest wall. No gynecomastia. No CVA tenderness. Lungs: clear to A&P. Left chest wall pacemaker. Heart exam: regular rate rhythm, S1 and S2, with I/ systolic murmur. Abdominal exam: normal bowel sounds, soft belly, currently nontender on deep palpation, without guarding or rebound. No definite mass or organomegaly. Diastasis recti. Negative Chan sign. No fluid shift. No pulsatile mass. No epigastric bruit. Multiple healing scars, post recent left nephrectomy & resection of left perirenal fat pad. Digital rectal exam deferred at present, per patient. Extremities: without C, C, or E. No palpable cords. Distal pulses 1+ bilaterally. DTRs 2+ bilaterally. Alert and oriented x 3. Motor strength 5/5 bilaterally. No focal defects. No rash. No acute arthropathy. No tremor. No asterixis. Current Medications: Current Medications Sig/Moira Start time Last Medication Dose Route Stop Time Status Admin Acetaminophen 1,000 MG Q6P PRN 11/06 0945 AC N/A 1 UNIT IV Atenolol 25 MG DAILY 11/11 1000 AC PO Atorvastatin Calcium 40 MG 1700 11/06 1700 AC 11/10 PO 1702 Diphenhydramine HCl 1 LUKE Q4 PRN 11/10 1011 AC TOP Diphenhydramine HCl 1 LUKE ONCE PRN 11/10 0215 DC 11/10 TOP 0306 Melatonin 5 MG AT BEDTIME PRN 11/10 1600 AC PO Nifedipine 30 MG DAILY 11/10 1829 AC PO Omeprazole 40 MG BID 11/10 2200 AC PO Ondansetron HCl 4 MG Q6P PRN 11/06 1715 AC IV Pantoprazole Sodium 80 MG Q10H 11/06 2345 DC 11/10 Dextrose/Water 100 ML IV 0011 Sodium Chloride 2 SPRAY Q4P PRN 11/07 1930 AC MARTÍN Zolpidem Tartrate 5 MG ONCE ONE 11/10 1830 DC PO 11/10 1831 Results Pertinent Lab Results: Laboratory Tests 11/10 11/10 1400 1135 Hematology CBC w Diff Cancelled NO MAN DIFF REQ WBC (4.8 - 10.8 /CUMM) Cancelled 8.2 RBC (4.70 - 6.10 /CUMM) Cancelled 3.23 L Hgb (14.0 - 18.0 G/DL) Cancelled 9.5 L Hct (42 - 52 %) Cancelled 28.2 L MCV (80.0 - 94.0 FL) Cancelled 87.5 MCH (27.0 - 31.0 PG) Cancelled 29.5 MCHC (33.0 - 37.0 G/DL) Cancelled 33.7 RDW (11.5 - 14.5 %) Cancelled 15.8 H Plt Count (130 - 400 /CUMM) Cancelled 194 MPV (7.4 - 10.4 FL) Cancelled 9.4 Gran % (42.2 - 75.2 %) 74.2 Lymphocytes % (20.5 - 51.1 %) 14.6 L Monocytes % (1.7 - 9.3 %) 6.8 Eosinophils % (0 - 5 %) 4.0 Basophils % (0.0 - 2.0 %) 0.4 Absolute Granulocytes (1.4 - 6.5 /CUMM) 6.1 Absolute Lymphocytes (1.2 - 3.4 /CUMM) 1.2 Absolute Monocytes (0.10 - 0.60 /CUMM) 0.6 Absolute Eosinophils (0.0 - 0.7 /CUMM) 0.3 Absolute Basophils (0.0 - 0.2 /CUMM) 0 11/10 11/09 0200 2354 Chemistry Sodium (137 - 145 mmol/L) 138 Potassium (3.5 - 5.1 mmol/L) 3.8 Cancelled Chloride (98 - 107 mmol/L) 110 H Carbon Dioxide (22 - 30 mmol/L) 21 L Anion Gap (5 - 16) 7 BUN (9 - 20 mg/dL) 22 H Creatinine (0.7 - 1.2 mg/dL) 1.5 H Estimated GFR (>60 ml/min) 44 L Glucose (65 - 99 mg/dL) 96 Calcium (8.4 - 10.2 mg/dL) 7.9 L Phosphorus (2.5 - 4.5 mg/dL) 3.4 Magnesium (1.6 - 2.3 mg/dL) 1.8 Total Bilirubin (0.2 - 1.3 mg/dL) 0.7 AST (17 - 59 U/L) 26 ALT (21 - 72 U/L) 32 Albumin (3.5 - 5.0 g/dL) 2.1 L Hematology CBC w Diff NO MAN DIFF REQ WBC (4.8 - 10.8 /CUMM) 8.4 RBC (4.70 - 6.10 /CUMM) 3.01 L Hgb (14.0 - 18.0 G/DL) 8.8 L Hct (42 - 52 %) 26.3 L MCV (80.0 - 94.0 FL) 87.5 MCH (27.0 - 31.0 PG) 29.1 MCHC (33.0 - 37.0 G/DL) 33.3 RDW (11.5 - 14.5 %) 15.6 H Plt Count (130 - 400 /CUMM) 189 MPV (7.4 - 10.4 FL) 9.7 Gran % (42.2 - 75.2 %) 70.9 Lymphocytes % (20.5 - 51.1 %) 15.9 L Monocytes % (1.7 - 9.3 %) 8.1 Eosinophils % (0 - 5 %) 4.7 Basophils % (0.0 - 2.0 %) 0.4 Absolute Granulocytes (1.4 - 6.5 /CUMM) 6.0 Absolute Lymphocytes (1.2 - 3.4 /CUMM) 1.3 Absolute Monocytes (0.10 - 0.60 /CUMM) 0.7 H Absolute Eosinophils (0.0 - 0.7 /CUMM) 0.4 Absolute Basophils (0.0 - 0.2 /CUMM) 0 11/09 11/09 1410 0857 Chemistry Sodium (137 - 145 mmol/L) 136 L Potassium (3.5 - 5.1 mmol/L) 3.8 Chloride (98 - 107 mmol/L) 109 H Carbon Dioxide (22 - 30 mmol/L) 21 L Anion Gap (5 - 16) 7 BUN (9 - 20 mg/dL) 28 H Creatinine (0.7 - 1.2 mg/dL) 1.5 H Estimated GFR (>60 ml/min) 44 L Glucose (65 - 99 mg/dL) 93 Calcium (8.4 - 10.2 mg/dL) 7.7 L Phosphorus (2.5 - 4.5 mg/dL) 3.1 Magnesium (1.6 - 2.3 mg/dL) 1.9 Total Bilirubin (0.2 - 1.3 mg/dL) 0.7 AST (17 - 59 U/L) 25 ALT (21 - 72 U/L) 36 Albumin (3.5 - 5.0 g/dL) 2.0 L Hematology CBC w Diff NO MAN DIFF REQ NO MAN DIFF REQ WBC (4.8 - 10.8 /CUMM) 8.4 8.0 RBC (4.70 - 6.10 /CUMM) 2.89 L 2.67 L Hgb (14.0 - 18.0 G/DL) 8.4 L 7.8 L Hct (42 - 52 %) 25.4 L 23.1 L MCV (80.0 - 94.0 FL) 87.7 86.6 MCH (27.0 - 31.0 PG) 29.0 29.4 MCHC (33.0 - 37.0 G/DL) 33.1 33.9 RDW (11.5 - 14.5 %) 15.4 H 15.8 H Plt Count (130 - 400 /CUMM) 179 175 MPV (7.4 - 10.4 FL) 9.8 9.1 Gran % (42.2 - 75.2 %) 74.2 75.9 H Lymphocytes % (20.5 - 51.1 %) 14.7 L 13.9 L Monocytes % (1.7 - 9.3 %) 7.2 6.6 Eosinophils % (0 - 5 %) 3.6 3.2 Basophils % (0.0 - 2.0 %) 0.3 0.4 Absolute Granulocytes (1.4 - 6.5 /CUMM) 6.3 6.0 Absolute Lymphocytes (1.2 - 3.4 /CUMM) 1.2 1.1 L Absolute Monocytes (0.10 - 0.60 /CUMM) 0.6 0.5 Absolute Eosinophils (0.0 - 0.7 /CUMM) 0.3 0.3 Absolute Basophils (0.0 - 0.2 /CUMM) 0 0 11/09 11/08 5621 7514 Hematology CBC w Diff NO MAN DIFF REQ NO MAN DIFF REQ WBC (4.8 - 10.8 /CUMM) 8.2 11.7 H RBC (4.70 - 6.10 /CUMM) 2.57 L 3.23 L Hgb (14.0 - 18.0 G/DL) 7.6 L 9.6 L Hct (42 - 52 %) 22.5 L 28.1 L MCV (80.0 - 94.0 FL) 87.5 87.2 MCH (27.0 - 31.0 PG) 29.4 29.6 MCHC (33.0 - 37.0 G/DL) 33.7 34.0 RDW (11.5 - 14.5 %) 16.1 H 16.5 H Plt Count (130 - 400 /CUMM) 170 228 MPV (7.4 - 10.4 FL) 8.9 9.2 Gran % (42.2 - 75.2 %) 72.7 79.2 H Lymphocytes % (20.5 - 51.1 %) 15.0 L 11.6 L Monocytes % (1.7 - 9.3 %) 7.6 5.8 Eosinophils % (0 - 5 %) 4.1 3.0 Basophils % (0.0 - 2.0 %) 0.6 0.4 Absolute Granulocytes (1.4 - 6.5 /CUMM) 5.9 9.2 H Absolute Lymphocytes (1.2 - 3.4 /CUMM) 1.2 1.4 Absolute Monocytes (0.10 - 0.60 /CUMM) 0.6 0.7 H Absolute Eosinophils (0.0 - 0.7 /CUMM) 0.3 0.4 Absolute Basophils (0.0 - 0.2 /CUMM) 0 0.1 11/08 11/08 1136 0444 Chemistry Sodium (137 - 145 mmol/L) 141 Potassium (3.5 - 5.1 mmol/L) 4.1 Chloride (98 - 107 mmol/L) 116 H Carbon Dioxide (22 - 30 mmol/L) 18 L Anion Gap (5 - 16) 7 BUN (9 - 20 mg/dL) 44 H Creatinine (0.7 - 1.2 mg/dL) 1.4 H Estimated GFR (>60 ml/min) 48 L Glucose (65 - 99 mg/dL) 91 Calcium (8.4 - 10.2 mg/dL) 7.5 L Phosphorus (2.5 - 4.5 mg/dL) 3.1 Magnesium (1.6 - 2.3 mg/dL) 1.8 Total Bilirubin (0.2 - 1.3 mg/dL) 0.5 AST (17 - 59 U/L) 16 L ALT (21 - 72 U/L) 28 Albumin (3.5 - 5.0 g/dL) 1.9 L Hematology CBC w Diff NO MAN DIFF REQ NO MAN DIFF REQ WBC (4.8 - 10.8 /CUMM) 9.3 10.3 RBC (4.70 - 6.10 /CUMM) 2.89 L 3.02 L Hgb (14.0 - 18.0 G/DL) 8.5 L 8.8 L Hct (42 - 52 %) 25.1 L 26.5 L MCV (80.0 - 94.0 FL) 86.8 87.8 MCH (27.0 - 31.0 PG) 29.4 29.1 MCHC (33.0 - 37.0 G/DL) 33.8 33.2 RDW (11.5 - 14.5 %) 16.4 H 16.4 H Plt Count (130 - 400 /CUMM) 189 194 MPV (7.4 - 10.4 FL) 9.6 9.5 Gran % (42.2 - 75.2 %) 76.2 H 74.9 Lymphocytes % (20.5 - 51.1 %) 14.2 L 15.1 L Monocytes % (1.7 - 9.3 %) 6.2 7.1 Eosinophils % (0 - 5 %) 2.9 2.4 Basophils % (0.0 - 2.0 %) 0.5 0.5 Absolute Granulocytes (1.4 - 6.5 /CUMM) 7.1 H 7.7 H Absolute Lymphocytes (1.2 - 3.4 /CUMM) 1.3 1.5 Absolute Monocytes (0.10 - 0.60 /CUMM) 0.6 0.7 H Absolute Eosinophils (0.0 - 0.7 /CUMM) 0.3 0.2 Absolute Basophils (0.0 - 0.2 /CUMM) 0 0.1 11/07 2145 Hematology CBC w Diff NO MAN DIFF REQ WBC (4.8 - 10.8 /CUMM) 9.8 RBC (4.70 - 6.10 /CUMM) 2.60 L Hgb (14.0 - 18.0 G/DL) 7.5 L Hct (42 - 52 %) 22.6 L MCV (80.0 - 94.0 FL) 86.9 MCH (27.0 - 31.0 PG) 28.8 MCHC (33.0 - 37.0 G/DL) 33.1 RDW (11.5 - 14.5 %) 17.0 H Plt Count (130 - 400 /CUMM) 186 MPV (7.4 - 10.4 FL) 9.6 Gran % (42.2 - 75.2 %) 71.3 Lymphocytes % (20.5 - 51.1 %) 19.7 L Monocytes % (1.7 - 9.3 %) 6.9 Eosinophils % (0 - 5 %) 1.5 Basophils % (0.0 - 2.0 %) 0.6 Absolute Granulocytes (1.4 - 6.5 /CUMM) 7.0 H Absolute Lymphocytes (1.2 - 3.4 /CUMM) 1.9 Absolute Monocytes (0.10 - 0.60 /CUMM) 0.7 H Absolute Eosinophils (0.0 - 0.7 /CUMM) 0.1 Absolute Basophils (0.0 - 0.2 /CUMM) 0.1 Imaging/Other Studies: 11/05/17: EKG- atrial-ventricular dual paced rhythm @ 67, LBBB. 11/09/17: EKG- ventricular paced complexes @ 65, LBBB. 11/05/17: XR PORTABLE CHEST- No acute abnormality of the chest. Pacemaker lead in right atrial and right ventricle remains unchanged position since prior study. 11/05/17: CT ABDOMEN AND PELVIS WITHOUT CONTRAST- Status post left nephrectomy. Stranding is seen at the operative bed. No fluid collection. Mild stranding extends into the pelvis. Right kidney with renal cysts. Exophytic upper pole lesion is hyperattenuating, likely representing a hemorrhagic or proteinaceous cyst as seen on prior MRI. Known cholelithiasis. No dilated ducts. No cholecystitis. 9 mm hypoattenuating lesion in pancreatic neck, corresponding to cyst on prior MRI. Diverticulosis without evidence of diverticulitis. Normal AP. PPM with leads terminating in right atrium and right ventricle. Coronary artery calcifications. 11/07/17: XR PORTABLE CHEST- No acute pulmonary findings. PPM.
[2017-11-11] VITALS (7 sets, daily range): BP systolic 86–122; BP diastolic 46–60
[2017-11-11 05:04] LABS: ABSOLUTE BASOPHIL COUNT 0 /CUMM (0.0-0.2); ABSOLUTE EOSINOPHIL COUNT 0.4 /CUMM (0.0-0.7); ABSOLUTE GRANULOCYTE CT 4.9 /CUMM (1.4-6.5); ABSOLUTE LYMPH COUNT 1.4 /CUMM (1.2-3.4); ABSOLUTE MONOCYTE COUNT 0.6 /CUMM (0.10-0.60); BASOPHIL % 0.4 % (0.0-2.0); EOSINOPHIL % 5.7 % (0-5); GRANULOCYTE % 66.7 % (42.2-75.2); HEMATOCRIT 26.5 % (42-52); MEAN CORPUSCULAR HGB 29.4 PG (27.0-31.0); MEAN CORPUSCULAR HGB CONC 33.5 G/DL (33.0-37.0); MEAN CORPUSCULAR VOLUME 87.7 FL (80.0-94.0); MEAN PLATELET VOLUME 9.6 FL (7.4-10.4); PLATELET COUNT 179 /CUMM (130-400); RBC DISTRIBUTION WIDTH 15.6 % (11.5-14.5); RED BLOOD CELL CT 3.03 /CUMM (4.70-6.10); WHITE BLOOD CELL COUNT 7.3 /CUMM (4.8-10.8)
[2017-11-11] MEDS ORDERED: PROTONIX40 M4 PO (08:12)
--- NOTE | 2017-11-11 08:15 | Patient Discharge Instructions ---
Discharge Instructions General Discharge Information You were seen/treated for: -GI bleeding, Duodenal ulcer with hemorrhage. -Acute kidney injury Special Instructions: -Please follow-up with your PCP within a week of discharge. -Please monitor your blood pressure at home. Call your hand candle molder if your blood pressure is unusually high or low. -Please avoid NSAID's, contrast, and remain hydrated during times of volume depletion. -Please follow-up with your hand candle molder within a week of discharge. You may need medication adjustment. -Please follow-up with agility instructor, Dr. Pleitez within a week of discharge. -Your aspirin and Plavix have been held because of gastrointestinal bleeding, please follow-up with your hand candle molder and agility instructor regarding when to resume aspirin and Plavix. -Please follow-up with lead bi developer Dr. Joy within 2 weeks of discharge. -Please have CBC checked in one week after discharge. -Please follow up stool for H. pylori antigen results with agility instructor, Dr. Pleitez. Diet Recommended Diet: Heart Healthy Activity Additional ACTIVITY Info: As tolerated Acute Coronary Syndrome Inclusion Criteria At DC or during hospital stay patient has or had the following: ACS DIAGNOSIS No Discharge Core Measures Meds if any: Prescribed or Continued at Discharge Meds if any: NOT Prescribed or Continued at Discharge Congestive Heart Failure Inclusion Criteria At DC or during hospital stay patient has or had the following: CHF DIAGNOSIS No Discharge Core Measures Meds if any: Prescribed or Continued at Discharge Meds if any: NOT Prescribed or Continued at Discharge Cerebrovascular accident Inclusion Criteria At DC or during hospital stay patient has or had the following: CVA/TIA Diagnosis No Discharge Core Measures Meds if any: Prescribed or Continued at Discharge Meds if any: NOT Prescribed or Continued at Discharge Venous thromboembolism Inclusion Criteria VTE Diagnosis No VTE Type NONE VTE Confirmed by (Test) NONE Discharge Core Measures - Per Current guidelines, there needs to be overlap - treatment for the first 5 days of Warfarin therapy. - If discharged on Warfarin prior to 5 days of - overlap therapy, the patient will need to be - assessed for post discharge needs including - *Post discharge parental anticoagulation - *Warfarin and/or parental anticoagulation education - *Follow up date to check INR post discharge At least 5 days overlap therapy as Inpatient No Meds if any: Prescribed or Continued at Discharge Note: Overlap Therapy is Warfarin and Anticoagulant Meds if any: NOT Prescribed or Continued at Discharge
--- NOTE | 2017-11-11 10:57 | PN- Housestaff ---
Subjective Follow-up For: Duodenal ulcer with hemorrhage Anemia Subjective: Patient was seen and examined in the morning. He offers no complaints. He denies any headache, dizziness, lightheadedness, nausea, vomiting, chest pain, shortness of breath, abdominal pain, urinary symptoms. No further episodes of bloody bowel movement or emesis. Has been walking without any problem, tolerating diet. He reports having mild swelling and erythema at the site of the IV access on his left arm. Dropped his blood pressure to 80s systolic, received 250 of normal saline bolus. Was restarted on home dose of atenolol this morning. Nifedipine was started last night. Review of Systems Constitutional: Reports: no symptoms. Objective Last 24 Hrs of Vital Signs/I&O Vital Signs Date Time Temp Pulse Resp B/P B/P Pulse O2 O2 Flow FiO2 Mean Ox Delivery Rate 11/11 1532 98.6 70 18 110/54 96 Room Air 11/11 1452 70 106/50 03 1335 70 86/46 / 1141 98.1 72 18 100/46 98 Room Air 11/11 0802 70 122/60 03 0800 98.1 70 18 122/60 97 Room Air 11/11 0427 98.4 70 20 122/60 94 Room Air 03/ 0000 96 Room Air 03/ 0000 98.7 76 18 120/50 96 Room Air 11/10 2115 128/72 Intake & Output 11/11 1600 03/01 0800 03/01 0000 Intake Total 560 120 290 Output Total 550 800 450 Balance 10 -680 -160 Intake, Oral 560 120 290 Number 0 1 Bowel Movements Output, Urine 550 800 450 Physical Exam General Appearance: Alert, Oriented X3, Cooperative, No Acute Distress Skin: No Rashes, No Breakdown, No Significant Lesion, mild erythema on left antecubital fossa, at the site of prior IV line Skin Temp/Moisture Exam: Warm/Dry Sepsis Skin Exam (color): Normal for Ethnicity HEENT: Atraumatic, PERRLA, EOMI, Mucous Membr. moist/pink Neck: Supple, No JVD, No thryomegaly, +2 Carotid Pulse wo Bruit, No LAD Lymphatic: Axillary nl, Cervical nl Cardiovascular: Regular Rate, Normal S1, Normal S2, Systolic murmur Lungs: Clear to Auscultation, Normal Air Movement Abdomen: Normal Bowel Sounds, Soft, No Tenderness, No Hepatospenomegaly, No Masses Neurological: Normal Speech, Strength at 5/5 X4 Ext Extremities: No Clubbing, No Cyanosis, No Edema, Normal Pulses, No Tenderness/ Swelling, see skin exam Vascular: Normal Pulses, Pulses Symmetrical Current Medications: Current Medications Sig/Moira Start time Last Medication Dose Route Stop Time Status Admin Acetaminophen 1,000 MG Q6P PRN 11/06 0945 AC N/A 1 UNIT IV Atenolol 25 MG DAILY 11/11 1000 AC 11/11 PO 0802 Atorvastatin Calcium 40 MG 1700 11/06 1700 AC 11/10 PO 1702 Diphenhydramine HCl 1 LUKE Q4 PRN 11/10 1011 AC 11/11 TOP 1312 Melatonin 5 MG AT BEDTIME PRN 11/10 1600 AC PO Nifedipine 30 MG DAILY 11/10 1829 AC 11/10 PO 2115 Omeprazole 40 MG BID 11/11 1000 AC 11/11 PO 0802 Omeprazole 40 MG BID 11/10 2200 DC 11/10 PO 2115 Ondansetron HCl 4 MG Q6P PRN 11/06 1715 AC IV Sodium Chloride 250 ML BOLUS ONE 11/11 1345 DC 11/11 IV 11/11 1444 1344 Sodium Chloride 2 SPRAY Q4P PRN 11/07 1930 AC MARTÍN Zolpidem Tartrate 5 MG ONCE ONE 11/10 183 DC 11/10 PO 11/10 1831 2115 Last 24 Hrs of Lab/Dhruv Results Last 24 Hrs of Labs/Mics: Laboratory Tests 11/11/17 0425: Anion Gap 8, Estimated GFR 44 L, Glucose 96, Calcium 7.7 L, Phosphorus 3.6, Magnesium 1.8, Total Bilirubin 0.4, AST 25, ALT 41, Albumin 2.1 L, CBC w Diff NO MAN DIFF REQ, RBC 3.03 L, MCV 87.7, MCH 29.4, MCHC 33.5, RDW 15.6 H, MPV 9.6, Gran % 66.7, Lymphocytes % 19.1 L, Monocytes % 8.1, Eosinophils % 5.7 H, Basophils % 0.4, Absolute Granulocytes 4.9, Absolute Lymphocytes 1.4, Absolute Monocytes 0.6, Absolute Eosinophils 0.4, Absolute Basophils 0 11/10/171939: Stool H. pylori Ag Pending Assessment/Plan Assessment: This is a 87 year old gentleman with past medical history significant for recent nephrectomy due to RCC, CAD with history of NH, and multiple cardiovasular risk factors seen for evaluation of abdominal pain, lightheadedness, shortness of breath, and black/tarry stools admitted for evaluation of probable GI bleed and symptomatic anemia. Assessment/plan #GI bleeding: Likely upper GI source;Duodenal ulcer with hemorrhage. No further episode of bloody emesis or bright red blood per rectum. * The patient was seen by agricultural produce packer and underwent a second endoscopy and cauterization of bleeding from duodenal bulb * H&H stable * Surgery did not recommend any procedures * Follow GI recommendations * Start on by mouth PPIs * Monitor CBC daily * Tolerating diet well #Episode of hypotension: * Blood pressure dropped to 80s systolic from low 100s. Asymptomatic. Received 2 50 mL of normal saline bolus. Nifedipine was held. Atenolol was administered to this morning. * Likely secondary to GI bleeding versus restarting her antihypertensives. * Will Check CBC * We'll monitor closely. #CRUZ: * Improving; Cr stable at 1.5 * Monitor BEP * Avoid nephrotoxins * Per nephrology: Should avoid SAID's, contrast, and to remain hydrated during times of volume depletion. #H/o CAD, hyperlipidemia: * Resume nifedipine tonight, atenolol from tomorrow. * c/w LEAD ENGINEER statins * Aspirin and Plavix on hold in the setting of GI bleeding: * GI suggested to start aspirin and Plavix at least 1 week after today. * Patient's Plavix has been held 1 week prior to admission for surgery. * GI suggesting to get cardiology input to see if it is okay to have the patient off aspirin and Plavix for at least 1 week after discharge. * Cardiology consult placed for the above; they are okay with holding ASA and plavis for another week. * Patient and family were also instructed to follow with his grape grower as outpatient and seek his input. #DVT prophylaxis: * Alps #CODE STATUS: * Full code Problem List: 1. Duodenal ulcer with hemorrhage 2. Anemia Pain Ratin Pain Location: NA Pain Goal: Remain pain free Pain Plan: NA Tomorrow's Labs & Rationales: CBC to monitor H&H ICU bundle to monitor electrolytes
--- NOTE | 2017-11-11 11:39 | PN- CRCU ---
Subjective HPI/Critical Care Issues: pt seen and examined hemoglobin stabilized to be dg to gen med Objective Current Medications: Current Medications Sig/Moira Start time Last Medication Dose Route Stop Time Status Admin Acetaminophen 1,000 MG Q6P PRN 11/06 0945 AC N/A 1 UNIT IV Atenolol 25 MG DAILY 11/11 1000 AC 11/11 PO 0802 Atorvastatin Calcium 40 MG 1700 11/06 1700 AC 11/10 PO 1702 Diphenhydramine HCl 1 LUKE Q4 PRN 11/10 1011 AC TOP Melatonin 5 MG AT BEDTIME PRN 11/10 1600 AC PO Nifedipine 30 MG DAILY 11/10 1829 AC 11/10 PO 2115 Omeprazole 40 MG BID 11/11 1000 AC 11/11 PO 0802 Omeprazole 40 MG BID 11/10 2200 DC 11/10 PO 211 Ondansetron HCl 4 MG Q6P PRN 11/06 1715 AC IV Sodium Chloride 2 SPRAY Q4P PRN 11/07 1930 AC MARTÍN Zolpidem Tartrate 5 MG ONCE ONE 11/10 183 DC 11/10 PO 11/10 183 2115 Vital Signs & I&O Last 24 Hrs of Vitals and I&O: Vital Signs Date Time Temp Pulse Resp B/P B/P Pulse O2 O2 Flow FiO2 Mean Ox Delivery Rate 11/11 0802 70 122/60 11/11 08 98.1 70 18 122/60 97 Room Air 11/11 0427 98.4 70 20 122/60 94 Room Air 11/11 0000 96 Room Air 11/11 0000 98.7 76 18 120/50 96 Room Air 11/10 211 128/72 11/10 1600 Room Air 11/10 1600 98.7 69 25 124/60 95 Room Air 11/10 1200 Room Air 11/10 1200 98.0 70 20 122/60 99 Room Air Intake & Output 11/11 1600 11/11 0800 11/11 0000 Intake Total 120 290 Output Total 300 800 450 Balance -300 -680 -160 Intake, Oral 120 290 Number 0 1 Bowel Movements Output, Urine 300 800 450 Exam Other Physical Findings: gen awake heent ncat cvs s1, s2 lungs clear abd soft ext without edema Results Last 24 Hrs of Lab Results: Laboratory Tests 11/11/17 0425: Anion Gap 8, Estimated GFR 44 L, Glucose 96, Calcium 7.7 L, Phosphorus 3.6, Magnesium 1.8, Total Bilirubin 0.4, AST 25, ALT 41, Albumin 2.1 L, CBC w Diff NO MAN DIFF REQ, RBC 3.03 L, MCV 87.7, MCH 29.4, MCHC 33.5, RDW 15.6 H, MPV 9.6, Gran % 66.7, Lymphocytes % 19.1 L, Monocytes % 8.1, Eosinophils % 5.7 H, Basophils % 0.4, Absolute Granulocytes 4.9, Absolute Lymphocytes 1.4, Absolute Monocytes 0.6, Absolute Eosinophils 0.4, Absolute Basophils 0 11/10/17 1940: Stool H. pylori Ag Pending 11/10/17 1400: CBC w Diff Cancelled, WBC Cancelled, RBC Cancelled, Hgb Cancelled, Hct Cancelled , MCV Cancelled, MCH Cancelled, MCHC Cancelled, RDW Cancelled, Plt Count Cancelled, MPV Cancelled Impression/Plan Impression/Plan Impression/Plan: IChet M.D. have examined this patient, reviewed available EMR data, personally reviewed images, discussed with resident/PA/ENOLOGIST, discussed management plan with housestaff and nursing staff, discussed managment plan all of healthcare providers, discussed management plan with patient and/or family, agreed with resident/PA/ENOLOGIST. The past history and parts of the chart have been autopopulated. 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
--- NOTE | 2017-11-11 13:12 | PN- Nephrology ---
Assessment/Plan Nephrology Assessment: Stage III CKD - s/p L nephrectomy - current SCr of 1.5 may be his new baseline given reduced renal mass. We discussed in detail things to avoid such as NSAID' s, contrast, and to remain hydrated during times of volume depletion. With his current SCr, I think it'd be reasonable for him to f/u with his PCP and only f/u with Nephrology if his SCr were to worsen or questions arise. Suggestion: -No further recommendations at this time Will see PRN Subjective Subjective: SCr stable at 1.5 Hg 8.9 Pt without complaints Objective Vital Signs and I&Os Vital Signs Date Time Temp Pulse Resp B/P B/P Pulse O2 O2 Flow FiO2 Mean Ox Delivery Rate 11/11 1141 98.1 72 18 100/46 98 Room Air 11/11 0802 70 122/60 11/11 0800 98.1 70 18 122/60 97 Room Air 11/11 0427 98.4 70 20 122/60 94 Room Air 11/11 0000 96 Room Air 11/11 0000 98.7 76 18 120/50 96 Room Air 11/10 2115 128/72 11/10 1600 Room Air 11/10 1600 98.7 69 25 124/60 95 Room Air Intake & Output 11/11 1600 11/11 0400 11/10 1600 11/10 0400 11/09 1600 11/09 0400 Intake Total 120 290 588 965 8594 678 Output Total 8014 591 3369 400 850 600 Balance -980 -160 -1635 -80 290 78 Intake, IV 105 80 400 238 Intake, Oral 120 290 360 240 740 440 Number 0 1 0 0 Bowel Movements Output, Stool 200 200 Output, Urine 1774 057 7758 400 850 400 Patient 205 lb 211 lb Weight Weight Bed scale Bed scale Measurement Method Physical Exam: Gen - NAD HEENT - supple CV - RRR, no m/r/g Chest - clear, no w/r/r Abd - soft, NTND Ext - no edema Neuro - AOX3, grossly nonfocal Current Medications: Current Medications Sig/Moira Start time Last Medication Dose Route Stop Time Status Admin Acetaminophen 1,000 MG Q6P PRN 11/06 0945 AC N/A 1 UNIT IV Atenolol 25 MG DAILY 11/11 1000 AC 11/11 PO 0802 Atorvastatin Calcium 40 MG 1700 11/06 1700 AC 11/10 PO 1702 Diphenhydramine HCl 1 LUKE Q4 PRN 11/10 1011 AC TOP Melatonin 5 MG AT BEDTIME PRN 11/10 1600 AC PO Nifedipine 30 MG DAILY 11/10 1829 AC 11/10 PO 2114 Omeprazole 40 MG BID 11/11 1000 AC 11/11 PO 08 Omeprazole 40 MG BID 11/10 2199 DC 11/10 PO 2114 Ondansetron HCl 4 MG Q6P PRN 11/06 1715 AC IV Sodium Chloride 2 SPRAY Q4P PRN 11/07 193 AC MARTÍN Zolpidem Tartrate 5 MG ONCE ONE 11/10 1829 DC 11/10 PO 11/10 Results Pertinent Lab Results: Laboratory Tests 11/11 11/10 11/10 0425 1940 1400 Chemistry Sodium (137 - 145 mmol/L) 138 Potassium (3.5 - 5.1 mmol/L) 3.9 Chloride (98 - 107 mmol/L) 108 H Carbon Dioxide (22 - 30 mmol/L) 23 Anion Gap (5 - 16) 8 BUN (9 - 20 mg/dL) 18 Creatinine (0.7 - 1.2 mg/dL) 1.5 H Estimated GFR (>60 ml/min) 44 L Glucose (65 - 99 mg/dL) 96 Calcium (8.4 - 10.2 mg/dL) 7.7 L Phosphorus (2.5 - 4.5 mg/dL) 3.6 Magnesium (1.6 - 2.3 mg/dL) 1.8 Total Bilirubin (0.2 - 1.3 mg/dL) 0.4 AST (17 - 59 U/L) 25 ALT (21 - 72 U/L) 41 Albumin (3.5 - 5.0 g/dL) 2.1 L Hematology CBC w Diff NO MAN DIFF REQ Cancelled WBC (4.8 - 10.8 /CUMM) 7.3 Cancelled RBC (4.70 - 6.10 /CUMM) 3.03 L Cancelled Hgb (14.0 - 18.0 G/DL) 8.9 L Cancelled Hct (42 - 52 %) 26.5 L Cancelled MCV (80.0 - 94.0 FL) 87.7 Cancelled MCH (27.0 - 31.0 PG) 29.4 Cancelled MCHC (33.0 - 37.0 G/DL) 33.5 Cancelled RDW (11.5 - 14.5 %) 15.6 H Cancelled Plt Count (130 - 400 /CUMM) 179 Cancelled MPV (7.4 - 10.4 FL) 9.6 Cancelled Gran % (42.2 - 75.2 %) 66.7 Lymphocytes % (20.5 - 51.1 %) 19.1 L Monocytes % (1.7 - 9.3 %) 8.1 Eosinophils % (0 - 5 %) 5.7 H Basophils % (0.0 - 2.0 %) 0.4 Absolute Granulocytes (1.4 - 6.5 /CUMM) 4.9 Absolute Lymphocytes (1.2 - 3.4 /CUMM) 1.4 Absolute Monocytes (0.10 - 0.60 /CUMM) 0.6 Absolute Eosinophils (0.0 - 0.7 /CUMM) 0.4 Absolute Basophils (0.0 - 0.2 /CUMM) 0 Other Body Source Stool H. pylori Ag Pending 11/10 11/10 1135 0200 Chemistry Sodium (137 - 145 mmol/L) 138 Potassium (3.5 - 5.1 mmol/L) 3.8 Chloride (98 - 107 mmol/L) 110 H Carbon Dioxide (22 - 30 mmol/L) 21 L Anion Gap (5 - 16) 7 BUN (9 - 20 mg/dL) 22 H Creatinine (0.7 - 1.2 mg/dL) 1.5 H Estimated GFR (>60 ml/min) 44 L Glucose (65 - 99 mg/dL) 96 Calcium (8.4 - 10.2 mg/dL) 7.9 L Phosphorus (2.5 - 4.5 mg/dL) 3.4 Magnesium (1.6 - 2.3 mg/dL) 1.8 Total Bilirubin (0.2 - 1.3 mg/dL) 0.7 AST (17 - 59 U/L) 26 ALT (21 - 72 U/L) 32 Albumin (3.5 - 5.0 g/dL) 2.1 L Hematology CBC w Diff NO MAN DIFF REQ NO MAN DIFF REQ WBC (4.8 - 10.8 /CUMM) 8.2 8.4 RBC (4.70 - 6.10 /CUMM) 3.23 L 3.01 L Hgb (14.0 - 18.0 G/DL) 9.5 L 8.8 L Hct (42 - 52 %) 28.2 L 26.3 L MCV (80.0 - 94.0 FL) 87.5 87.5 MCH (27.0 - 31.0 PG) 29.5 29.1 MCHC (33.0 - 37.0 G/DL) 33.7 33.3 RDW (11.5 - 14.5 %) 15.8 H 15.6 H Plt Count (130 - 400 /CUMM) 194 189 MPV (7.4 - 10.4 FL) 9.4 9.7 Gran % (42.2 - 75.2 %) 74.2 70.9 Lymphocytes % (20.5 - 51.1 %) 14.6 L 15.9 L Monocytes % (1.7 - 9.3 %) 6.8 8.1 Eosinophils % (0 - 5 %) 4.0 4.7 Basophils % (0.0 - 2.0 %) 0.4 0.4 Absolute Granulocytes (1.4 - 6.5 /CUMM) 6.1 6.0 Absolute Lymphocytes (1.2 - 3.4 /CUMM) 1.2 1.3 Absolute Monocytes (0.10 - 0.60 /CUMM) 0.6 0.7 H Absolute Eosinophils (0.0 - 0.7 /CUMM) 0.3 0.4 Absolute Basophils (0.0 - 0.2 /CUMM) 0 0 11/09 11/09 2354 1410 Chemistry Sodium (137 - 145 mmol/L) 136 L Potassium (3.5 - 5.1 mmol/L) Cancelled 3.8 Chloride (98 - 107 mmol/L) 109 H Carbon Dioxide (22 - 30 mmol/L) 21 L Anion Gap (5 - 16) 7 BUN (9 - 20 mg/dL) 28 H Creatinine (0.7 - 1.2 mg/dL) 1.5 H Estimated GFR (>60 ml/min) 44 L Glucose (65 - 99 mg/dL) 93 Calcium (8.4 - 10.2 mg/dL) 7.7 L Phosphorus (2.5 - 4.5 mg/dL) 3.1 Magnesium (1.6 - 2.3 mg/dL) 1.9 Total Bilirubin (0.2 - 1.3 mg/dL) 0.7 AST (17 - 59 U/L) 25 ALT (21 - 72 U/L) 36 Albumin (3.5 - 5.0 g/dL) 2.0 L Hematology CBC w Diff NO MAN DIFF REQ WBC (4.8 - 10.8 /CUMM) 8.4 RBC (4.70 - 6.10 /CUMM) 2.89 L Hgb (14.0 - 18.0 G/DL) 8.4 L Hct (42 - 52 %) 25.4 L MCV (80.0 - 94.0 FL) 87.7 MCH (27.0 - 31.0 PG) 29.0 MCHC (33.0 - 37.0 G/DL) 33.1 RDW (11.5 - 14.5 %) 15.4 H Plt Count (130 - 400 /CUMM) 179 MPV (7.4 - 10.4 FL) 9.8 Gran % (42.2 - 75.2 %) 74.2 Lymphocytes % (20.5 - 51.1 %) 14.7 L Monocytes % (1.7 - 9.3 %) 7.2 Eosinophils % (0 - 5 %) 3.6 Basophils % (0.0 - 2.0 %) 0.3 Absolute Granulocytes (1.4 - 6.5 /CUMM) 6.3 Absolute Lymphocytes (1.2 - 3.4 /CUMM) 1.2 Absolute Monocytes (0.10 - 0.60 /CUMM) 0.6 Absolute Eosinophils (0.0 - 0.7 /CUMM) 0.3 Absolute Basophils (0.0 - 0.2 /CUMM) 0 11/09 11/09 0857 0445 Hematology CBC w Diff NO MAN DIFF REQ NO MAN DIFF REQ WBC (4.8 - 10.8 /CUMM) 8.0 8.2 RBC (4.70 - 6.10 /CUMM) 2.67 L 2.57 L Hgb (14.0 - 18.0 G/DL) 7.8 L 7.6 L Hct (42 - 52 %) 23.1 L 22.5 L MCV (80.0 - 94.0 FL) 86.6 87.5 MCH (27.0 - 31.0 PG) 29.4 29.4 MCHC (33.0 - 37.0 G/DL) 33.9 33.7 RDW (11.5 - 14.5 %) 15.8 H 16.1 H Plt Count (130 - 400 /CUMM) 175 170 MPV (7.4 - 10.4 FL) 9.1 8.9 Gran % (42.2 - 75.2 %) 75.9 H 72.7 Lymphocytes % (20.5 - 51.1 %) 13.9 L 15.0 L Monocytes % (1.7 - 9.3 %) 6.6 7.6 Eosinophils % (0 - 5 %) 3.2 4.1 Basophils % (0.0 - 2.0 %) 0.4 0.6 Absolute Granulocytes (1.4 - 6.5 /CUMM) 6.0 5.9 Absolute Lymphocytes (1.2 - 3.4 /CUMM) 1.1 L 1.2 Absolute Monocytes (0.10 - 0.60 /CUMM) 0.5 0.6 Absolute Eosinophils (0.0 - 0.7 /CUMM) 0.3 0.3 Absolute Basophils (0.0 - 0.2 /CUMM) 0 0 11/08 1744 Hematology CBC w Diff NO MAN DIFF REQ WBC (4.8 - 10.8 /CUMM) 11.7 H RBC (4.70 - 6.10 /CUMM) 3.23 L Hgb (14.0 - 18.0 G/DL) 9.6 L Hct (42 - 52 %) 28.1 L MCV (80.0 - 94.0 FL) 87.2 MCH (27.0 - 31.0 PG) 29.6 MCHC (33.0 - 37.0 G/DL) 34.0 RDW (11.5 - 14.5 %) 16.5 H Plt Count (130 - 400 /CUMM) 228 MPV (7.4 - 10.4 FL) 9.2 Gran % (42.2 - 75.2 %) 79.2 H Lymphocytes % (20.5 - 51.1 %) 11.6 L Monocytes % (1.7 - 9.3 %) 5.8 Eosinophils % (0 - 5 %) 3.0 Basophils % (0.0 - 2.0 %) 0.4 Absolute Granulocytes (1.4 - 6.5 /CUMM) 9.2 H Absolute Lymphocytes (1.2 - 3.4 /CUMM) 1.4 Absolute Monocytes (0.10 - 0.60 /CUMM) 0.7 H Absolute Eosinophils (0.0 - 0.7 /CUMM) 0.4 Absolute Basophils (0.0 - 0.2 /CUMM) 0.1 Imaging/Other Studies: EXAM TYPE: CAT - CT ABD & PELVIS W/O IV CONTRAS EXAMINATION: CT ABDOMEN AND PELVIS WITHOUT CONTRAST CLINICAL INFORMATION: Diffuse abdominal pain. Status post nephrectomy 10/18/2017. COMPARISON: 07/26/2015 TECHNIQUE: Multidetector volumetric imaging was performed from the superior aspect of the liver through the pubic symphysis. Sagittal and coronal reformatted images were obtained on the technologist's workstation. DLP: 1037 mGy-cm FINDINGS: LUNG BASES: Small left pleural effusion. Cyst noted at the right lung base. Coronary artery calcifications. Cardiac pacer leads terminate at the right atrium and right ventricle. LIVER, GALLBLADDER, AND BILIARY TREE: The liver is normal in size, shape, and attenuation. No focal hepatic lesion or biliary ductal dilatation is present. Gallstones are seen layering in the gallbladder lumen. No gallbladder wall thickening or pericholecystic fluid. PANCREAS: Redemonstration of a 0.9 cm hypoattenuating lesion in the pancreatic neck. This corresponds with a simple cyst seen on prior MR imaging. The pancreatic parenchyma is otherwise unremarkable. SPLEEN: Unremarkable. ADRENAL GLANDS: Unremarkable. KIDNEYS AND URETERS: Status post left nephrectomy. Mild stranding and fluid seen at the operative bed. No evidence of fluid collection. The right kidney is normal in position. Right midpole renal cyst unchanged. Exophytic right upper pole hyperattenuating lesion is unchanged, which likely represents a proteinaceous or hemorrhagic cyst as demonstrated on prior MRI. BLADDER: Unremarkable. GASTROINTESTINAL TRACT: The stomach is unremarkable. The small bowel is normal in caliber. No obstruction. There is colonic diverticulosis present. No colonic wall thickening or inflammatory change to suggest diverticulitis. Normal appendix. No free intraperitoneal air. Mild stranding extends along the left paracolic gutter into the pelvis. ABDOMINAL WALL: Stranding is seen along the left anterior abdominal wall with subcutaneous gas present. LYMPH NODES: Normal. VASCULAR: Moderate atherosclerotic calcifications. Bilateral common iliac artery stents. PELVIC VISCERA: Prostate calcifications. The seminal vesicles are unremarkable. OSSEOUS STRUCTURES: No acute or suspicious osseous abnormality. DISH. Multilevel degenerative changes throughout the spine. Degenerative changes of the hips. IMPRESSION: Status post left nephrectomy. Stranding is seen at the operative bed. No fluid collection. Mild stranding extends into the pelvis. Right kidney with renal cysts. Exophytic upper pole lesion is hyperattenuating, likely representing a hemorrhagic or proteinaceous cyst as seen on prior MRI. Cholelithiasis. Diverticulosis without evidence of diverticulitis.
--- NOTE | 2017-11-11 13:51 | Cons- Cardiology ---
General Information and HPI Consulting Request Date of Consult: 11/11/17 Requested By: Chet Hughes MD Reason for Consult: CAD on aspirin and Plavix admitted with upper GI bleeding Source of Information: patient, family, old records Exam Limitations: no limitations History of Present Illness: Mr. Song is 87-year-old man with PMH of CAD, MO 1975 s/p PCI with two stents, hypertension, hyperlipidemia, bradycardia s/p pacemaker, and recent RCC s/p nephrectomy on 10/20/17 seen for evaluation of abdominal pain, lightheadedness, shortness of breath, and black tarry stool. Plavix and aspirin were discontinued on admission, patient hemglobin lowest was 7.5, patient reported dizziness at that time but never had chest pain, palpation , SOB. He follows up with superintendent police in [place] Dr. Bhavin Thomas [phone] for bradycardia and pacemaker interrogation. Patient denied any history of arrhythmia. Patient has been on Plavix and aspirin since 1975 with no subsequent MO or chest pain. He never had similar episode of upper GI bleeding in the past. 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 Patient has no active bleeding, had one bowel movement of old blood yesterday that was evaluated by GI. H&H 8.9/26.5, patient status post 7 units of PRBC. Allergies/Medications Allergies: Coded Allergies: adhesive tape (UNKNOWN 11/06/17) Home Med List: Aspirin (Lo-Dose Aspirin EC) 81 MG TABLET.DR 1 TAB PO DAILY Heart (Reported) Atenolol 25 MG TABLET 1 TAB PO DAILY Heart (Reported) Atorvastatin Calcium (Lipitor) 40 MG TABLET 1 TAB PO DAILY dyslipidemia ( Reported) Clopidogrel Bisulfate (Clopidogrel) 75 MG TABLET 1 TAB PO DAILY Heart ( Reported) Nifedipine (Nifedipine ER) 30 MG TAB.ER.24 1 TAB PO DAILY Heart (Reported) Pantoprazole Sodium (Protonix) 40 MG CINDY. 1 TAB PO BID GI protection Past History Travel History Traveled to [place] past 21 day No Medical History Blood Transfusion Hx: No Neurological: NONE EENT: hearing loss Cardiovascular: CAD, hypertension, hyperlipidemia, myocardial infarction, PVD, STEMI, PACEMAKER (BRADYCARDIA) Respiratory: pneumonia Gastrointestinal: remote hx colon polyps. Hepatic: cholelithiasis Renal: RCC Musculoskeletal: chronic back pain, degen joint disease, osteoarthritis, spinal stenosis, Lumbar repair Psychiatric: NONE Endocrine: NONE Blood Disorders: NONE Cancer(s): NONE STUDENT/Reproductive: NONE Surgical History Surgical History: arthroscopy, cataract removal, L nephrectomy 10/20/2017 back surgery,lumbar laminectomy foot surgery bilateral carotid endarterectomy rotator cuff on the left tonsillectomy pacemaker Family History Relations & Conditions If Any: MOTHER, , Age 94; Cause: Myocardial infarct. FH: heart attack FATHER, , Age 67; Cause: Myocardial infarct. FH: heart attack Psychosocial History Where Do You Live? Home Who Do You Live With? spouse Services at Home: None Primary Language: Sami Smoking Status: Former Smoker (25 pack years) ETOH Use: occasional use Illicit Drug Use: denies illicit drug use Living Will? unknown Power of Aerial Advertiser/HCP? unknown Functional Ability ADLs Independent: dressing, eating, toileting, bathing. Ambulation: independent IADLs Independent: shopping, housework, finances, food prep, telephone, transportation , medication admin. Exam & Diagnostic Data Vital Signs and I&O Vital Signs Date Time Temp Pulse Resp B/P B/P Pulse O2 O2 Flow FiO2 Mean Ox Delivery Rate 11/11 1141 98.1 72 18 100/46 98 Room Air 11/11 0802 70 122/60 11/11 0800 98.1 70 18 122/60 97 Room Air 11/11 0427 98.4 70 20 122/60 94 Room Air 11/11 0000 96 Room Air 11/11 0000 98.7 76 18 120/50 96 Room Air 11/10 2115 128/72 11/10 1600 Room Air 11/10 1600 98.7 69 25 124/60 95 Room Air Intake & Output 11/11 1600 11/11 0800 03/ 0000 11/10 1600 11/10 0800 11/10 0000 Intake Total 120 290 265 200 320 Output Total 300 800 325 503 9636 400 Balance -300 -680 -160 -585 -1050 -80 Intake, IV 25 80 80 Intake, Oral 120 290 240 120 240 Number 0 1 0 Bowel Movements Output, Stool 200 Output, Urine 300 800 063 120 4608 400 Patient 93.071 kg Weight Weight Bed scale Measurement Method Physical Exam: Gen. no acute distress Cardiovascular S1-S2 regular, no murmur Lung Clear bilateral, no wheeze Abdomen soft, positive bowel sounds LE peripheral pulses palpable, trace pedal edema Labs/Dhruv Results: Laboratory Tests 11/11 11/10 11/10 0425 1940 1400 Chemistry Sodium (137 - 145 mmol/L) 138 Potassium (3.5 - 5.1 mmol/L) 3.9 Chloride (98 - 107 mmol/L) 108 H Carbon Dioxide (22 - 30 mmol/L) 23 Anion Gap (5 - 16) 8 BUN (9 - 20 mg/dL) 18 Creatinine (0.7 - 1.2 mg/dL) 1.5 H Estimated GFR (>60 ml/min) 44 L Glucose (65 - 99 mg/dL) 96 Calcium (8.4 - 10.2 mg/dL) 7.7 L Phosphorus (2.5 - 4.5 mg/dL) 3.6 Magnesium (1.6 - 2.3 mg/dL) 1.8 Total Bilirubin (0.2 - 1.3 mg/dL) 0.4 AST (17 - 59 U/L) 25 ALT (21 - 72 U/L) 41 Albumin (3.5 - 5.0 g/dL) 2.1 L Hematology CBC w Diff NO MAN DIFF REQ Cancelled WBC (4.8 - 10.8 /CUMM) 7.3 Cancelled RBC (4.70 - 6.10 /CUMM) 3.03 L Cancelled Hgb (14.0 - 18.0 G/DL) 8.9 L Cancelled Hct (42 - 52 %) 26.5 L Cancelled MCV (80.0 - 94.0 FL) 87.7 Cancelled MCH (27.0 - 31.0 PG) 29.4 Cancelled MCHC (33.0 - 37.0 G/DL) 33.5 Cancelled RDW (11.5 - 14.5 %) 15.6 H Cancelled Plt Count (130 - 400 /CUMM) 179 Cancelled MPV (7.4 - 10.4 FL) 9.6 Cancelled Gran % (42.2 - 75.2 %) 66.7 Lymphocytes % (20.5 - 51.1 %) 19.1 L Monocytes % (1.7 - 9.3 %) 8.1 Eosinophils % (0 - 5 %) 5.7 H Basophils % (0.0 - 2.0 %) 0.4 Absolute Granulocytes (1.4 - 6.5 /CUMM) 4.9 Absolute Lymphocytes (1.2 - 3.4 /CUMM) 1.4 Absolute Monocytes (0.10 - 0.60 /CUMM) 0.6 Absolute Eosinophils (0.0 - 0.7 /CUMM) 0.4 Absolute Basophils (0.0 - 0.2 /CUMM) 0 Other Body Source Stool H. pylori Ag Pending 11/10 11/10 1135 0200 Chemistry Sodium (137 - 145 mmol/L) 138 Potassium (3.5 - 5.1 mmol/L) 3.8 Chloride (98 - 107 mmol/L) 110 H Carbon Dioxide (22 - 30 mmol/L) 21 L Anion Gap (5 - 16) 7 BUN (9 - 20 mg/dL) 22 H Creatinine (0.7 - 1.2 mg/dL) 1.5 H Estimated GFR (>60 ml/min) 44 L Glucose (65 - 99 mg/dL) 96 Calcium (8.4 - 10.2 mg/dL) 7.9 L Phosphorus (2.5 - 4.5 mg/dL) 3.4 Magnesium (1.6 - 2.3 mg/dL) 1.8 Total Bilirubin (0.2 - 1.3 mg/dL) 0.7 AST (17 - 59 U/L) 26 ALT (21 - 72 U/L) 32 Albumin (3.5 - 5.0 g/dL) 2.1 L Hematology CBC w Diff NO MAN DIFF REQ NO MAN DIFF REQ WBC (4.8 - 10.8 /CUMM) 8.2 8.4 RBC (4.70 - 6.10 /CUMM) 3.23 L 3.01 L Hgb (14.0 - 18.0 G/DL) 9.5 L 8.8 L Hct (42 - 52 %) 28.2 L 26.3 L MCV (80.0 - 94.0 FL) 87.5 87.5 MCH (27.0 - 31.0 PG) 29.5 29.1 MCHC (33.0 - 37.0 G/DL) 33.7 33.3 RDW (11.5 - 14.5 %) 15.8 H 15.6 H Plt Count (130 - 400 /CUMM) 194 189 MPV (7.4 - 10.4 FL) 9.4 9.7 Gran % (42.2 - 75.2 %) 74.2 70.9 Lymphocytes % (20.5 - 51.1 %) 14.6 L 15.9 L Monocytes % (1.7 - 9.3 %) 6.8 8.1 Eosinophils % (0 - 5 %) 4.0 4.7 Basophils % (0.0 - 2.0 %) 0.4 0.4 Absolute Granulocytes (1.4 - 6.5 /CUMM) 6.1 6.0 Absolute Lymphocytes (1.2 - 3.4 /CUMM) 1.2 1.3 Absolute Monocytes (0.10 - 0.60 /CUMM) 0.6 0.7 H Absolute Eosinophils (0.0 - 0.7 /CUMM) 0.3 0.4 Absolute Basophils (0.0 - 0.2 /CUMM) 0 0 11/09 11/09 2354 1410 Chemistry Sodium (137 - 145 mmol/L) 136 L Potassium (3.5 - 5.1 mmol/L) Cancelled 3.8 Chloride (98 - 107 mmol/L) 109 H Carbon Dioxide (22 - 30 mmol/L) 21 L Anion Gap (5 - 16) 7 BUN (9 - 20 mg/dL) 28 H Creatinine (0.7 - 1.2 mg/dL) 1.5 H Estimated GFR (>60 ml/min) 44 L Glucose (65 - 99 mg/dL) 93 Calcium (8.4 - 10.2 mg/dL) 7.7 L Phosphorus (2.5 - 4.5 mg/dL) 3.1 Magnesium (1.6 - 2.3 mg/dL) 1.9 Total Bilirubin (0.2 - 1.3 mg/dL) 0.7 AST (17 - 59 U/L) 25 ALT (21 - 72 U/L) 36 Albumin (3.5 - 5.0 g/dL) 2.0 L Hematology CBC w Diff NO MAN DIFF REQ WBC (4.8 - 10.8 /CUMM) 8.4 RBC (4.70 - 6.10 /CUMM) 2.89 L Hgb (14.0 - 18.0 G/DL) 8.4 L Hct (42 - 52 %) 25.4 L MCV (80.0 - 94.0 FL) 87.7 MCH (27.0 - 31.0 PG) 29.0 MCHC (33.0 - 37.0 G/DL) 33.1 RDW (11.5 - 14.5 %) 15.4 H Plt Count (130 - 400 /CUMM) 179 MPV (7.4 - 10.4 FL) 9.8 Gran % (42.2 - 75.2 %) 74.2 Lymphocytes % (20.5 - 51.1 %) 14.7 L Monocytes % (1.7 - 9.3 %) 7.2 Eosinophils % (0 - 5 %) 3.6 Basophils % (0.0 - 2.0 %) 0.3 Absolute Granulocytes (1.4 - 6.5 /CUMM) 6.3 Absolute Lymphocytes (1.2 - 3.4 /CUMM) 1.2 Absolute Monocytes (0.10 - 0.60 /CUMM) 0.6 Absolute Eosinophils (0.0 - 0.7 /CUMM) 0.3 Absolute Basophils (0.0 - 0.2 /CUMM) 0 Diagnostic Data EKG Results Paced rate 45, no T or ST wave cahnges QTC 457 Assessment/Plan Assessment/Plan 1- CAD, MO 1976 s/p PCI with two stents. patient is off aspirin and Plavix since admission 11/06/17, troponin and EKG [address] abdomen pelvis showed calcification of coronary arteries 2- Hypertension 3- Hyperlipidemia 4- Bradycardia s/p pacemaker 5- RCC s/p nephrectomy on 10/20/17 , CKD stage III 6- UGI bleeding s/p EGD and cauterization of duodenal bulb Recommendation 1- okay to hold aspirin and Plavix for another week 2- obtain records from superintendent police 3- transfuse for hemoglobin less than 8 4- continue other cardiac medication Consult Acknowledgment - Thank you for your consult request.
[2017-11-11 18:04] LABS: ABSOLUTE BASOPHIL COUNT 0 /CUMM (0.0-0.2); ABSOLUTE EOSINOPHIL COUNT 0.3 /CUMM (0.0-0.7); ABSOLUTE GRANULOCYTE CT 5.9 /CUMM (1.4-6.5); ABSOLUTE LYMPH COUNT 1.2 /CUMM (1.2-3.4); ABSOLUTE MONOCYTE COUNT 0.6 /CUMM (0.10-0.60); BASOPHIL % 0.3 % (0.0-2.0); EOSINOPHIL % 4.3 % (0-5); GRANULOCYTE % 73.9 % (42.2-75.2); HEMATOCRIT 27.8 % (42-52); MEAN CORPUSCULAR HGB 29.3 PG (27.0-31.0); MEAN CORPUSCULAR HGB CONC 33.1 G/DL (33.0-37.0); MEAN CORPUSCULAR VOLUME 88.5 FL (80.0-94.0); MEAN PLATELET VOLUME 9.9 FL (7.4-10.4); PLATELET COUNT 200 /CUMM (130-400); RBC DISTRIBUTION WIDTH 15.7 % (11.5-14.5); RED BLOOD CELL CT 3.14 /CUMM (4.70-6.10)
[2017-11-12] VITALS: BP 104/50
[2017-11-12 05:48] LABS: ABSOLUTE BASOPHIL COUNT 0 /CUMM (0.0-0.2); ABSOLUTE EOSINOPHIL COUNT 0.4 /CUMM (0.0-0.7); ABSOLUTE GRANULOCYTE CT 5.3 /CUMM (1.4-6.5); ABSOLUTE LYMPH COUNT 1.4 /CUMM (1.2-3.4); ABSOLUTE MONOCYTE COUNT 0.6 /CUMM (0.10-0.60); BASOPHIL % 0.4 % (0.0-2.0); EOSINOPHIL % 5.6 % (0-5); GRANULOCYTE % 68.3 % (42.2-75.2); HEMATOCRIT 26.8 % (42-52); MEAN CORPUSCULAR HGB 29.3 PG (27.0-31.0); MEAN CORPUSCULAR HGB CONC 33.6 G/DL (33.0-37.0); MEAN CORPUSCULAR VOLUME 87.2 FL (80.0-94.0); PLATELET COUNT 187 /CUMM (130-400); RBC DISTRIBUTION WIDTH 16.1 % (11.5-14.5); RED BLOOD CELL CT 3.08 /CUMM (4.70-6.10); WHITE BLOOD CELL COUNT 7.8 /CUMM (4.8-10.8)
[2017-11-12 08:00] VITALS: BP 122/60
--- NOTE | 2017-11-12 08:19 | PN- Housestaff ---
Jaida Hopson 11/12/17 0819: Subjective Follow-up For: Duodenal ulcer with hemorrhage Anemia CRUZ-resolved Subjective: The patient was seen and examined. He offers no complaints. He denies any headache, dizziness, lightheadedness, nausea, vomiting, chest pain, shortness of breath, abdominal pain. He had a bowel movement this morning without any blood. No further episode of emesis. Has been tolerating diet well. Atenolol on hold for low blood pressure. Swelling and erythema at the site of IV access on left arm almost resolved. Review of Systems Constitutional: Reports: no symptoms. Objective Last 24 Hrs of Vital Signs/I&O Vital Signs Date Time Temp Pulse Resp B/P B/P Pulse O2 O2 Flow FiO2 Mean Ox Delivery Rate 11/12 1200 100/60 11/12 0956 56 132/56 11/12 0800 98.1 72 18 122/60 98 Room Air Room Air 11/12 0000 98.5 64 18 104/50 97 Room Air 11/11 1532 98.6 70 18 110/54 96 Room Air 11/11 1452 70 106/50 03/01 1335 70 86/46 Intake & Output 11/12 1600 11/12 0800 11/12 0000 Intake Total 0 360 Output Total 550 550 Balance -550 -190 Intake, IV 0 Intake, Oral 360 Number 0 0 Bowel Movements Output, Stool 0 Output, Urine 550 550 Physical Exam General Appearance: Alert, Oriented X3, Cooperative, No Acute Distress Other Physical Findings: Skin: No Rashes, No Breakdown, No Significant Lesion, erythema on left antecubital fossa has resolved, at the site of prior IV line Skin Temp/Moisture Exam: Warm/Dry Sepsis Skin Exam (color): Normal for Ethnicity HEENT: Atraumatic, PERRLA, EOMI, Mucous Membr. moist/pink Neck: Supple, No JVD, No thryomegaly, +2 Carotid Pulse wo Bruit, No LAD Lymphatic: Axillary nl, Cervical nl Cardiovascular: Regular Rate, Normal S1, Normal S2, Systolic murmur Lungs: Clear to Auscultation, Normal Air Movement Abdomen: Normal Bowel Sounds, Soft, No Tenderness, No Hepatospenomegaly, No Masses Neurological: Normal Speech, Strength at 5/5 X4 Ext Extremities: No Clubbing, No Cyanosis, No Edema, Normal Pulses, No Tenderness/ Swelling, see skin exam Vascular: Normal Pulses, Pulses Symmetrical Current Medications: Current Medications Sig/Moira Start time Last Medication Dose Route Stop Time Status Admin Acetaminophen 1,000 MG Q6P PRN 11/06 0945 AC N/A 1 UNIT IV Atenolol 25 MG DAILY 11/11 1000 DC 11/11 PO 0802 Atorvastatin Calcium 40 MG 1700 11/06 1700 AC 11/11 PO 1755 Diphenhydramine HCl 1 LUKE Q4 PRN 11/10 1011 AC 11/11 TOP 1312 Melatonin 5 MG AT BEDTIME PRN 11/10 1600 AC PO Nifedipine 30 MG DAILY 11/10 1829 AC 11/12 PO 0956 Omeprazole 40 MG BID 11/11 1000 AC 11/12 PO 0956 Ondansetron HCl 4 MG Q6P PRN 11/06 1715 AC IV Sodium Chloride 250 ML BOLUS ONE 11/11 1345 DC 11/11 IV 11/11 1444 1344 Sodium Chloride 2 SPRAY Q4P PRN 11/07 1930 AC MARTÍN Last 24 Hrs of Lab/Dhruv Results Last 24 Hrs of Labs/Mics: Laboratory Tests 11/12/17 0524: Anion Gap 5, Estimated GFR 44 L, Glucose 97, Calcium 8.0 L, Phosphorus 3.9, Magnesium 1.8, Total Bilirubin 0.4, AST 20, ALT 35, Albumin 2.3 L, CBC w Diff NO MAN DIFF REQ, RBC 3.08 L, MCV 87.2, MCH 29.3, MCHC 33.6, RDW 16.1 H, MPV 10.0, Gran % 68.3, Lymphocytes % 18.0 L, Monocytes % 7.7, Eosinophils % 5.6 H, Basophils % 0.4, Absolute Granulocytes 5.3, Absolute Lymphocytes 1.4, Absolute Monocytes 0.6, Absolute Eosinophils 0.4, Absolute Basophils 0 11/11/17 1725: CBC w Diff NO MAN DIFF REQ, RBC 3.14 L, MCV 88.5, MCH 29.3, MCHC 33.1, RDW 15.7 H, MPV 9.9, Gran % 73.9, Lymphocytes % 14.5 L, Monocytes % 7.0, Eosinophils % 4.3, Basophils % 0.3, Absolute Granulocytes 5.9, Absolute Lymphocytes 1.2, Absolute Monocytes 0.6, Absolute Eosinophils 0.3, Absolute Basophils 0 Assessment/Plan Assessment: This is a 87 year old gentleman with past medical history significant for recent nephrectomy due to RCC, CAD with history of ID, and multiple cardiovasular risk factors seen for evaluation of abdominal pain, lightheadedness, shortness of breath, and black/tarry stools admitted for evaluation of probable GI bleed and symptomatic anemia. Assessment/plan #GI bleeding: Likely upper GI source;Duodenal ulcer with hemorrhage. No further episode of bloody emesis or bright red blood per rectum. * The patient was seen by supervisor publications production and underwent a second endoscopy and cauterization of bleeding from duodenal bulb * H&H stable * Surgery did not recommend any procedures * Follow GI recommendations * Start on by mouth PPIs * Monitor CBC one week after discharge * Tolerating diet well * No further episode of GI bleeding * Instructed to follow up with supervisor publications production upon discharge. Follow-up stool H.Pylori antigen with Dr. Pleitez. #Episode of hypotension: * Blood pressure dropped to 80s systolic from low 100s. Asymptomatic. Received 250 mL of normal saline bolus. Nifedipine was held. Atenolol was administered to this morning. * Likely secondary to GI bleeding versus restarting her antihypertensives. * H&H stable * Per cardiology recommendations, will hold atenolol and continue with nifedipine. * Patient to follow-up with his film painter within a week of discharge for possible medication adjustment. * He was instructed to check his blood pressure at home and call his film painter if his blood pressure is unusually low or high. * The patient expressed understanding and was agreeable. * His called his film painter to be able to make appointment. * Patient's blood pressure was checked fe hours after dose of morning nifedipine and was stable for discharge. #CRUZ: * Improving; Cr stable at 1.5 * Monitor BEP * Avoid nephrotoxins * Per nephrology: Should avoid SAID's, contrast, and to remain hydrated during times of volume depletion. * Follow up with medical technologist blood bank upon discharge. * Instructions provided to avoid nephrotoxins. #H/o CAD, hyperlipidemia: * Resume nifedipine tonight, atenolol from tomorrow. * c/w INDOOR PLANT TECHNICIAN statins * Aspirin and Plavix on hold in the setting of GI bleeding: * GI suggested to start aspirin and Plavix at least 1 week after today. * Patient's Plavix has been held 1 week prior to admission for surgery. * GI suggesting to get cardiology input to see if it is okay to have the patient off aspirin and Plavix for at least 1 week after discharge. * Cardiology consult placed for the above; they are okay with holding ASA and plavis for another week. * Patient and family were also instructed to follow with his film painter as outpatient and seek his input. #DVT prophylaxis: * Alps #CODE STATUS: * Full code Problem List: 1. Anemia 2. Duodenal ulcer with hemorrhage Pain Ratin Pain Location: NA Pain Goal: Remain pain free Pain Plan: NA Tomorrow's Labs & Rationales: Chet Collins MD 11/12/17 1126: Attending MD Review Statement Attending Statement Attending MD Statement: examined this patient, discuss w/resident/PA/LOCATION AND MEASUREMENT TECHNICIAN, agreed w/resident/PA/LOCATION AND MEASUREMENT TECHNICIAN, discussed with family, reviewed EMR data (avail), discussed with nursing, discussed with case mgmt, reviewed images, amended to note Attending Assessment/Plan: Chet Waters M.D. have examined this patient, reviewed available EMR data, personally reviewed images, discussed with resident/PA/LOCATION AND MEASUREMENT TECHNICIAN, discussed management plan with housestaff and nursing staff, discussed managment plan all of healthcare providers, discussed management plan with patient and/or family, agreed with resident/PA/LOCATION AND MEASUREMENT TECHNICIAN. The past history and parts of the chart have been autopopulated. 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
[2017-11-12] MEDS ORDERED: PROTONIX40 M3 PO (10:49)
[2017-11-12 12:00] VITALS: BP 100/60
--- NOTE | 2017-11-12 18:12 | Discharge Summary ---
Hospital Course Allergies: Coded Allergies: adhesive tape (UNKNOWN 11/06/17) Discharge Instructions Medications at Discharge Discharge Medications: Stop taking the following medications: Atenolol (Atenolol) 25 MG TABLET ORAL DAILY Aspirin (Lo-Dose Aspirin EC) 81 MG TABLET. ORAL DAILY Clopidogrel Bisulfate (Clopidogrel) 75 MG TABLET ORAL DAILY Continue taking these medications: Nifedipine (Nifedipine ER) 30 MG TAB.ER.24 1 Tablet ORAL DAILY Comments: Last Taken:11/12/17 Time:9:56A.M Atorvastatin Calcium (Lipitor) 40 MG TABLET 1 Tablet ORAL DAILY Comments: Last Taken:11/11/17 Time:5:55P.M Start taking the following new medications: Pantoprazole Sodium (Protonix) 40 MG TABLET. 1 Tablet ORAL TWICE DAILY Qty = 60 No Refills Comments: Last Taken:11/12/17 Time:09:56A.A
== END 2017-11-12 12:45 | disposition home health service (06) | DRG 378 ==
LOC: ERH 22:44 → ERHI 23:58 → CRI 23:58 → EDBEDREQ 11-06 02:24 → ERHI 11-06 02:27 → ENRESERV 11-06 02:42 → CRI 11-06 04:00 → ENTRNSPT 11-12 12:44 → CRI 11-12 12:45 → CMPTRNSPT 11-12 13:06
PROVIDERS: Dermatology; Internal Medicine; Internal Medicine Interventional Cardiology; Pediatrics; Student in an Organized Health Care Education/Training Program
PROC: 30233Q1 Transfusion of Nonautologous White Cells into Peripheral Vein, Percutaneous Approach (ICD-10-PCS; 2017-11-06)
PROC: 3E0G8GC Introduction of Other Therapeutic Substance into Upper GI, Via Natural or Artificial Opening Endoscopic (ICD-10-PCS; principal; 2017-11-07)
PROC: 0W3P8ZZ Control Bleeding in Gastrointestinal Tract, Via Natural or Artificial Opening Endoscopic (ICD-10-PCS; 2017-11-07)
DX: K26.4 Chronic or unspecified duodenal ulcer with hemorrhage (principal); D62 Acute posthemorrhagic anemia; N17.9 Acute kidney failure, unspecified; E86.0 Dehydration; I73.9 Peripheral vascular disease, unspecified; I95.1 Orthostatic hypotension; N18.3 Chronic kidney disease, stage 3 (moderate); I12.9 Hypertensive chronic kidney disease with stage 1 through stage 4 chronic kidney disease, or unspecified chronic kidney disease; I25.10 Atherosclerotic heart disease of native coronary artery without angina pectoris; I25.2 Old myocardial infarction; Z95.0 Presence of cardiac pacemaker; Z90.5 Acquired absence of kidney; Z87.891 Personal history of nicotine dependence; D72.829 Elevated white blood cell count, unspecified; E78.5 Hyperlipidemia, unspecified; Z95.5 Presence of coronary angioplasty implant and graft; G89.29 Other chronic pain; M54.9 Dorsalgia, unspecified; M19.90 Unspecified osteoarthritis, unspecified site; M48.061 Spinal stenosis, lumbar region without neurogenic claudication; Z85.528 Personal history of other malignant neoplasm of kidney
CPT/HCPCS: 87338; CCU; ERO; 36415; 71045; 74176; 81003; 82436; 86920; 87086; 93005; 93010; 96360; 99291; J0131; J0171; J2405; J7040; P9016

== ENCOUNTER 2017-12-18 23:26 | Inpatient (IN) | payer OTHER, MEDICARE ==
[~2017-12-18] VITALS: Ht 172.7 cm; Wt 1036.6 kg
[~2017-12-18 23:26] MED LIST changes: +ATENOLOL25 M1 PO; +CLOPIDOGREL75 M1 PO; +LIPITOR40 M1 PO; +LO-DOSE ASPIRIN81 MG PO; +NIFEDIPINE ER30 M2 PO; +PROTONIX40 M3 PO; +PROTONIX40 M4 PO
--- NOTE | 2017-12-19 | ED GI/GU/ABDOMINAL COMPLAINT ---
History of Present Illness General Chief Complaint: Abdominal Pain/Flank Pain Stated Complaint: ABD PAIN Source: patient, family, old records Exam Limitations: no limitations Vital Signs & Intake/Output Vital Signs & Intake/Output Vital Signs Date Time Temp Pulse Resp B/P B/P Pulse O2 O2 Flow FiO2 Mean Ox Delivery Rate 12/19 0124 59 119/57 96 Room Air 12/18 2348 69 20 127/61 100 Room Air 12/18 2346 69 126/61 12/18 2334 96.6 88 24 184/126 ED Intake and Output 12/19 0000 12/18 1200 Intake Total Output Total Balance Patient 210 lb Weight Allergies Coded Allergies: adhesive tape (UNKNOWN 11/06/17) Reconcile Medications Atenolol 25 MG TABLET 1 TAB PO DAILY HTN (Reported) Atorvastatin Calcium 40 MG TABLET 1 TAB PO DAILY CHOL (Reported) Clopidogrel Bisulfate (Clopidogrel) 75 MG TABLET 1 TAB PO DAILY THINNER ( Reported) Nifedipine (Nifedipine ER) 30 MG TAB.ER.24 1 TAB PO DAILY Heart (Reported) Pantoprazole Sodium 40 MG TABLET.DR 1 TAB PO DAILY GERD (Reported) Triage Note: PER PT VOMITTED WEDNESDAY AFTER ABD PAIN, SAME ON WEDNESDAY AFTER VOMITING PAIN GOES AWAY ONLY OCCURS AT NIGHT, PER PT TONIGHT DID NOT GO AWAY, BUT DID NOT VOMIT Triage Nurses Notes Reviewed? yes Onset: yesterday Duration: day(s):, waxing and waning Timing: recent history Quality/Severity: aching, fullness, severe, vomiting Location: epigastric, right upper quadrant Radiation: no radiation Prior Abdominal Problems: none Past Sexual History: Unobtainable at this time Modifying Factors: Improves With: vomiting. Worsens With: movement, palpation. Associated Symptoms: abdominal pain, loss of appetite, nausea/vomiting HPI: 2 days prior to admission patient complains of episodic epigastric right upper quadrant discomfort described as fullness associated with nausea and decreased appetite and vomiting. Prior to admission pain became severe again with nausea vomiting of bilious material. He denies fever chills cough chest pain shortness breath headache dysuria rash bleeding. Past History Travel History Traveled to [place] past 21 day No Medical History Any Pertinent Medical History? see below for history Neurological: NONE EENT: hearing loss Cardiovascular: CAD, hypertension, hyperlipidemia, myocardial infarction, PVD, STEMI, PACEMAKER (BRADYCARDIA) Respiratory: pneumonia Gastrointestinal: remote hx colon polyps. GIB Hepatic: cholelithiasis Renal: RCC Musculoskeletal: chronic back pain, degen joint disease, osteoarthritis, spinal stenosis, Lumbar repair Psychiatric: NONE Endocrine: NONE Blood Disorders: NONE Cancer(s): NONE DATA MANAGEMENT/Reproductive: NONE History of MRSA: No History of VRE: No History of CDIFF: No Influenza Vaccine: 06/13/17 Surgical History Surgical History: arthroscopy, cataract removal, L nephrectomy 10/20/2017 back surgery,lumbar laminectomy foot surgery bilateral carotid endarterectomy rotator cuff on the left tonsillectomy pacemaker Psychosocial History Who do you live with Spouse Services at Home None What is your primary language French Tobacco Use: Never used Family History Family History, If Any: MOTHER, , Age 94; Cause: Myocardial infarct. FH: heart attack FATHER, , Age 67; Cause: Myocardial infarct. FH: heart attack Hx Contributory? No Review of Systems Review of Systems Constitutional: Reports: no symptoms. EENTM: Reports: no symptoms. Respiratory: Reports: no symptoms. Cardiovascular: Reports: no symptoms. GI: Reports: see HPI, abdominal pain, bloating, nausea, vomiting. Genitourinary: Reports: no symptoms. Musculoskeletal: Reports: no symptoms. Skin: Reports: no symptoms. Neurological/Psychological: Reports: no symptoms. Hematologic/Endocrine: Reports: no symptoms. Immunologic/Allergic: Reports: no symptoms. All Other Systems: Reviewed and Negative Physical Exam Physical Exam General Appearance: well developed/nourished, alert, awake, anxious, severe distress, obese Head: atraumatic, normal appearance Eyes: Bilateral: normal appearance, PERRL, EOMI, normal inspection. Ears, Nose, Throat, Mouth: hearing grossly normal, moist mucous membrane Neck: normal inspection, supple, full range of motion, normal alignment Respiratory: normal breath sounds, chest non-tender, no respiratory distress, quiet respiration, lungs clear Cardiovascular: regular rate/rhythm, normal peripheral pulses, norml femoral pulses equa Peripheral Pulses: 4+ carotid (R), 4+ carotid (L) Gastrointestinal: soft, abnormal bowel sounds, distention, guarding, tenderness (RUQ, +[place]) Male Genitals: normal genitalia Back: normal inspection, normal range of motion Extremities: normal range of motion, no ligament instability Neurologic/Psych: no motor/sensory deficits, awake, alert, oriented x 3, normal mood/affect, toolroom checker II-XII nml as tested Skin: intact, normal color, warm/dry Core Measures ACS in differential dx? No Sepsis Present: No Sepsis Focused Exam Completed? No Progress Differential Diagnosis: biliary colic, bowel obstruction, diverticulitis, gastritis, pancreatitis, PUD/GERD Plan of Care: Orders Procedure Date/time Status Nothing by Mouth 12/19 B Active HEPATIC FUNCTION PANEL 12/19 599 Active CBC WITHOUT DIFFERENTIAL 12/19 599 Active BASIC ELECTROLYTES PLUS BUN&CR 12/19 599 Active LACTIC ACID 12/19 0243 Active Pathway - chart 12/19 0125 Active Patient Data 12/19 012 Active OXYGEN SETUP (GEN) 12/19 010 Active Saline Lock 12/19 010 Active Admit to inpatient 12/19 100 Active Vital Signs 12/19 100 Active Activity/Ambulation 12/19 100 Active Code Status 12/19 100 Active House Staff 12/19 UNK Active VTE Mechanical Prophylaxis 12/19 UNK Active Vital Signs 12/19 UNK Active TROPONIN LEVEL 12/18 2343 Complete LIPASE 12/18 2343 Complete LACTIC ACID 12/18 2343 Complete COMPREHENSIVE METABOLIC PANEL 12/18 2343 Complete CBC WITHOUT DIFFERENTIAL 12/18 2343 Complete EKG 12/18 2328 Active Current Medications Sig/Moira Start time Last Medication Dose Stop Time Status Admin Heparin Sodium 5,000 UNIT Q8 12/19 06 UNVr (Porcine) Lactated Ringer's 1,000 ML .Q5H 12/19 0130 AC (Lactated Ringers) Laboratory Tests 12/18/17 2345: Anion Gap 11, Estimated GFR 38 L, BUN/Creatinine Ratio 14.1, Glucose 152 H, Lactic Acid 1.4, Calcium 8.7, Total Bilirubin 0.9, AST 680 H, ALT 473 H, Alkaline Phosphatase 307 H, Troponin I < 0.01, Total Protein 7.3, Albumin 3.6, Globulin 3.7, Albumin/Globulin Ratio 1.0 L, Lipase 6845 H, CBC w Diff NO MAN DIFF REQ, RBC 4.03 L, MCV 86.9, MCH 28.5, MCHC 32.8 L, RDW 16.4 H, MPV 10.0, Gran % 73.4, Lymphocytes % 17.7 L, Monocytes % 6.5, Eosinophils % 2.0, Basophils % 0.4, Absolute Granulocytes 7.1 H, Absolute Lymphocytes 1.7, Absolute Monocytes 0.6, Absolute Eosinophils 0.2, Absolute Basophils 0 Diagnostic Imaging: Viewed by Me: CT Scan. Discussed w/RAD: CT Scan. Radiology Impression: No acute findings in the abdomen or pelvis. Cholelithiasis without additional findings to suggest acute cholecystitis. Status post left nephrectomy. Unchanged appearance of scarring extending into the pelvis. Unchanged appearance of the right kidney with renal cyst and exophytic upper pole lesion which likely represents proteinaceous or hemorrhagic cyst. Colonic diverticulosis without diverticulitis. Initial ED EKG: pacemaker rhythm, LBBB Prior EKG: unchanged Rhythm Strip: normal sinus rhythm Departure Departure Disposition: STILL A PATIENT Condition: Stable Clinical Impression Primary Impression: Gallstone pancreatitis Secondary Impressions: Chronic renal insufficiency Referrals: Mya Pedro MD (PCP/Family) Departure Forms: Customer Survey General Discharge Information Admission Note Spoke With: Korey Bolivar MD Documentation of Exam: Documentation of any treatments & extenuating circumstances including Concerns Regarding Discharge (functional status, medication knowledge or non-compliance, living conditions, etc.) that warrant an admission rather than observation: NPO IV hydration IV analgesia IV antiemetics serial lab exam medication adjustment GI evaluation continuing care discharge planning
[2017-12-19 00:03] LABS: ABSOLUTE BASOPHIL COUNT 0 /CUMM (0.0-0.2); ABSOLUTE EOSINOPHIL COUNT 0.2 /CUMM (0.0-0.7); ABSOLUTE GRANULOCYTE CT 7.1 /CUMM (1.4-6.5); ABSOLUTE LYMPH COUNT 1.7 /CUMM (1.2-3.4); ABSOLUTE MONOCYTE COUNT 0.6 /CUMM (0.10-0.60); BASOPHIL % 0.4 % (0.0-2.0); GRANULOCYTE % 73.4 % (42.2-75.2); MEAN CORPUSCULAR HGB 28.5 PG (27.0-31.0); MEAN CORPUSCULAR HGB CONC 32.8 G/DL (33.0-37.0); MEAN CORPUSCULAR VOLUME 86.9 FL (80.0-94.0); PLATELET COUNT 207 /CUMM (130-400); RBC DISTRIBUTION WIDTH 16.4 % (11.5-14.5); RED BLOOD CELL CT 4.03 /CUMM (4.70-6.10); WHITE BLOOD CELL COUNT 9.6 /CUMM (4.8-10.8)
[2017-12-19] MEDS ORDERED: ATENOLOL25 M1 PO (00:08)
[2017-12-19] MEDS ORDERED: ATORVASTATIN CA40 M1 PO (00:08)
[2017-12-19] MEDS ORDERED: PANTOPRAZOLE SO40 M1 PO (00:08)
[2017-12-19] MEDS ORDERED: CLOPIDOGREL75 M1 PO (00:09)
--- NOTE | 2017-12-19 00:53 | CT SCAN REPORT ---
EXAMINATION: CT ABDOMEN AND PELVIS WITHOUT CONTRAST CLINICAL INFORMATION: Nausea and vomiting. Distention. Right upper quadrant tenderness. COMPARISON: 11/06/2017 TECHNIQUE: Multidetector volumetric imaging was performed from the superior aspect of the liver through the pubic symphysis. Sagittal and coronal reformatted images were obtained on the technologist's workstation. DLP: 934 mGy-cm FINDINGS: LUNG BASES: Minimal bibasilar atelectasis. Lung cyst at the right base. Improvement of the prior left pleural effusion. Cardiac pacer leads noted. LIVER, GALLBLADDER, AND BILIARY TREE: The liver is normal in size, shape, and attenuation. No focal hepatic lesion or biliary ductal dilatation is present. Multiple small gallstones are seen layering in the gallbladder lumen, unchanged. No gallbladder wall thickening or pericholecystic fluid. PANCREAS: There is a hypoattenuating structure at the neck of the pancreas, measuring 1 cm. This appears cystic and is unchanged from prior. No pancreatic ductal dilatation. The pancreatic parenchyma is otherwise unremarkable. SPLEEN: Unremarkable. ADRENAL GLANDS: Right adrenal gland is unremarkable. The left is not definitively seen and may be surgically absent. KIDNEYS AND URETERS: Status post left nephrectomy. Prominent scarring at the operative site. The right kidney is normal in size without hydronephrosis. 2.8 cm right midpole renal cyst. There is an exophytic upper pole hyperattenuating lesion which is also unchanged. BLADDER: Unremarkable. GASTROINTESTINAL TRACT: The stomach is unremarkable. The small bowel is normal in caliber. No obstruction. There is colonic diverticulosis, greatest at the sigmoid colon. Stranding seen adjacent to the sigmoid colon appears chronic and is likely associated with scarring. There is no focal wall thickening with adjacent inflammation seen to suggest diverticulitis. No free air or free fluid. Normal appendix. ABDOMINAL WALL: No significant hernia is appreciated. LYMPH NODES: Normal. VASCULAR: Normal caliber aorta with mild atherosclerotic calcifications. Bilateral common iliac artery stents. PELVIC VISCERA: The prostate and seminal vesicles are unremarkable. OSSEOUS STRUCTURES: No acute or suspicious osseous abnormality. Multilevel degenerative changes of the spine. Mild degenerative changes also present in the hips. IMPRESSION: No acute findings in the abdomen or pelvis. Cholelithiasis without additional findings to suggest acute cholecystitis. Status post left nephrectomy. Unchanged appearance of scarring extending into the pelvis. Unchanged appearance of the right kidney with renal cyst and exophytic upper pole lesion which likely represents proteinaceous or hemorrhagic cyst. Colonic diverticulosis without diverticulitis.
--- NOTE | 2017-12-19 01:22 | History & Physical ---
Jakob Perry MD 12/19/17 0121: General Information and HPI MD Statement: I have seen and personally examined MILADYS HALL and documented this H&P. The patient is a 87 year old M who presented with a patient stated chief complaint of [abdominal pain]. Source of Information: patient, family, old records Exam Limitations: no limitations History of Present Illness: Patient is an 87-year-old male with an extensive past medical history significant for bradyarrhythmia status post permanent pacemaker placement, CAD status post WA, PVD status post iliac stent placement, bilateral carotid endarterectomy with stents placed, RCC status post left nephrectomy in October of 2017, pancreatic cyst, recent admission for severe GI bleed, HTN, HLD who presents with a three-day history of intermittent abdominal pain, nausea and vomiting. 2 days prior to admission patient first noted this severe pressure like pain in his epigastric area radiating to other areas of his abdomen, not to his back or shoulder, this pain was initially rated about a 9 out of 10 and was relieved after he had one episode of bilious, nonbloody, vomiting and flatulence. He felt in his usual state of health until the next night when he had a very similar episode again relieved by vomiting this time containing food. The evening of admission he had recurrence again around the same time, during the evening approximately 6 or 7 PM however this time. Accompanying nausea he did not vomit and his pain has not resolved. He had a similar episode several years ago and was diagnosed with pancreatitis, at that time gallstones were noted however not believed to be the cause of his pancreatitis. His pain was significantly improved in the ED after being given morphine and his nausea improved with Zofran. He denies any other symptoms except for mild shortness of breath secondary to pain and lightheadedness, both of which have resolved. He denies any diarrhea, melena, hematochezia, urinary symptoms, chest pain, palpitations. Allergies/Medications Allergies: Coded Allergies: adhesive tape (UNKNOWN 11/06/17) Home Med list Aspirin (Aspirin*) 81 MG TAB.CHEW 1 TAB PO DAILY HEART (Reported) Atenolol 25 MG TABLET 1 TAB PO DAILY HTN (Reported) Atorvastatin Calcium 40 MG TABLET 1 TAB PO DAILY CHOL (Reported) Clopidogrel Bisulfate (Clopidogrel) 75 MG TABLET 1 TAB PO DAILY THINNER ( Reported) Nifedipine (Nifedipine ER) 30 MG TAB.ER.24 1 TAB PO DAILY Heart (Reported) Pantoprazole Sodium 40 MG TABLET.DR 1 TAB PO DAILY GERD (Reported) Past History Travel History Traveled to [place] past 21 day No Medical History Neurological: NONE EENT: hearing loss Cardiovascular: CAD, hypertension, hyperlipidemia, myocardial infarction, PVD, STEMI, PACEMAKER (BRADYCARDIA) Respiratory: pneumonia Gastrointestinal: remote hx colon polyps. GIB Hepatic: cholelithiasis Renal: RCC Musculoskeletal: chronic back pain, degen joint disease, osteoarthritis, spinal stenosis, Lumbar repair Psychiatric: NONE Endocrine: NONE Blood Disorders: NONE Cancer(s): NONE PROOF OPERATOR/Reproductive: NONE History of MRSA: No History of VRE: No History of CDIFF: No Influenza Vaccine: 06/13/17 Surgical History Surgical History: arthroscopy, cataract removal, L nephrectomy 10/20/2017 back surgery,lumbar laminectomy foot surgery bilateral carotid endarterectomy rotator cuff on the left tonsillectomy pacemaker Past Family/Social History Family History Relations & Conditions if any MOTHER, , Age 94; Cause: Myocardial infarct. FH: heart attack FATHER, , Age 67; Cause: Myocardial infarct. FH: heart attack Psychosocial History Where do you live? Home Who Do You Live With? spouse Services at Home: None Primary Language: Pakistani Smoking Status: Former Smoker (distant, 20 pack year) ETOH Use: occasional use Illicit Drug Use: denies illicit drug use Living Will? yes Functional Ability ADLs Independent: dressing, eating, toileting, bathing. Ambulation: independent IADLs Independent: shopping, housework, finances, food prep, telephone, transportation , medication admin. Sexual History Past Sexual History Unobtainable at this time Review of Systems Review of Systems Constitutional: Denies: chills, fever. EENTM: Reports: no symptoms. Cardiovascular: Reports: no symptoms. Respiratory: Reports: no symptoms. GI: Reports: abdominal pain, bloating, nausea, vomiting. Denies: diarrhea, melena, bloody stool. Genitourinary: Reports: no symptoms. Musculoskeletal: Reports: no symptoms. Skin: Reports: no symptoms. Neurological/Psychological: Reports: no symptoms. Exam & Diagnostic Data Last 24 Hrs of Vital Signs/I&O Vital Signs Date Time Temp Pulse Resp B/P B/P Pulse O2 O2 Flow FiO2 Mean Ox Delivery Rate 12/19 0245 98.1 64 18 154/60 97 Room Air 12/19 0124 59 119/57 96 Room Air 12/18 2348 69 20 127/61 100 Room Air 12/18 2346 69 126/61 12/18 2334 96.6 88 24 184/126 Intake & Output 12/19 0800 04 0000 12/18 1600 Intake Total 1000 Output Total Balance 1000 Intake, IV 1000 Patient 210 lb Weight Physical Exam General Appearance Alert, Oriented X3, Cooperative, No Acute Distress Skin Temp/Moisture Exam: Warm/Dry Sepsis Skin Exam (color): Normal for Ethnicity HEENT Atraumatic, PERRLA, EOMI, Mucous Membr. moist/pink Neck Supple, No JVD Cardiovascular Regular Rate, Normal S1, Normal S2, No Murmurs Lungs Clear to Auscultation, Normal Air Movement Abdomen Normal Bowel Sounds, Soft, No Tenderness Neurological Normal Speech, Strength at 5/5 X4 Ext, Normal Tone, Sensation Intact, Cranial Nerves 3-12 NL Extremities No Clubbing, No Cyanosis, No Edema Last 24 Hrs of Labs/Dhruv: Laboratory Tests 12/18/17 2345: Anion Gap 11, Estimated GFR 38 L, BUN/Creatinine Ratio 14.1, Glucose 152 H, Lactic Acid 1.4, Calcium 8.7, Total Bilirubin 0.9, AST 680 H, ALT 473 H, Alkaline Phosphatase 307 H, Troponin I < 0.01, Total Protein 7.3, Albumin 3.6, Globulin 3.7, Albumin/Globulin Ratio 1.0 L, Lipase 6845 H, CBC w Diff NO MAN DIFF REQ, RBC 4.03 L, MCV 86.9, MCH 28.5, MCHC 32.8 L, RDW 16.4 H, MPV 10.0, Gran % 73.4, Lymphocytes % 17.7 L, Monocytes % 6.5, Eosinophils % 2.0, Basophils % 0.4, Absolute Granulocytes 7.1 H, Absolute Lymphocytes 1.7, Absolute Monocytes 0.6, Absolute Eosinophils 0.2, Absolute Basophils 0 Diagnostic Data EKG Results ventricularly paced HR 70, QTc [address] Abd/pelvis LUNG BASES: Minimal bibasilar atelectasis. Lung cyst at the right base. Improvement of the prior left pleural effusion. Cardiac pacer leads noted. LIVER, GALLBLADDER, AND BILIARY TREE: The liver is normal in size, shape, and attenuation. No focal hepatic lesion or biliary ductal dilatation is present. Multiple small gallstones are seen layering in the gallbladder lumen, unchanged. No gallbladder wall thickening or pericholecystic fluid. PANCREAS: There is a hypoattenuating structure at the neck of the pancreas, measuring 1 cm. This appears cystic and is unchanged from prior. No pancreatic ductal dilatation. The pancreatic parenchyma is otherwise unremarkable. SPLEEN: Unremarkable. ADRENAL GLANDS: Right adrenal gland is unremarkable. The left is not definitively seen and may be surgically absent. KIDNEYS AND URETERS: Status post left nephrectomy. Prominent scarring at the operative site. The right kidney is normal in size without hydronephrosis. 2.8 cm right midpole renal cyst. There is an exophytic upper pole hyperattenuating lesion which is also unchanged. BLADDER: Unremarkable. GASTROINTESTINAL TRACT: The stomach is unremarkable. The small bowel is normal in caliber. No obstruction. There is colonic diverticulosis, greatest at the sigmoid colon. Stranding seen adjacent to the sigmoid colon appears chronic and is likely associated with scarring. There is no focal wall thickening with adjacent inflammation seen to suggest diverticulitis. No free air or free fluid. Normal appendix. ABDOMINAL WALL: No significant hernia is appreciated. LYMPH NODES: Normal. VASCULAR: Normal caliber aorta with mild atherosclerotic calcifications. Bilateral common iliac artery stents. PELVIC VISCERA: The prostate and seminal vesicles are unremarkable. OSSEOUS STRUCTURES: No acute or suspicious osseous abnormality. Multilevel degenerative changes of the spine. Mild degenerative changes also present in the hips. IMPRESSION: No acute findings in the abdomen or pelvis. Cholelithiasis without additional findings to suggest acute cholecystitis. Status post left nephrectomy. Unchanged appearance of scarring extending into the pelvis. Unchanged appearance of the right kidney with renal cyst and exophytic upper pole lesion which likely represents proteinaceous or hemorrhagic cyst. Colonic diverticulosis without diverticulitis. Assessment/Plan Assessment: Patient is an 87-year-old male with an extensive past medical history significant for bradycardia arrhythmia status post permanent pacemaker placement , CAD status post WA, PVD status post stent placement, bilateral carotid endarterectomy with stents placed, RCC status post left nephrectomy in October of this year, pancreatic cyst, recent admission for severe GI bleed, HTN, HLD who presents with a three-day history of intermittent abdominal pain, nausea and vomiting. Vital signs on admission: T 96.6 P 88, RR 22, BP 184/126 (came down to 126/61 with just pain control), saturating 100% on room air Labs on admission: WBC 9.6, H/H 11.5/35, platelets 207, BUN 24, creatinine 1.7, AST 680, ALT 473, alkaline phosphatase 307, lipase 6845 Problem list #Pancreatitis, unknown etiology, patient has known gallstones from the past however there is no evidence of cholecystitis, patient does not drink alcohol heavily #Transaminitis #Chronic medical problems, renal function appears to be at baseline Plan -Admit to general medicine -GI consult placed with answering service of Dr. Mata, patient follows with Dr. Pleitez -Nothing by mouth -Right upper quadrant ultrasound -Repeat LFTs in a.m. -Follow-up lipid panel, TFTs, GGT, LDH and coags in a.m. Diet: Nothing by mouth DVT prophylaxis: Subcutaneous heparin, Alps CODE STATUS: Full code As Ranked By This Provider Problem List: 1. Pancreatitis 2. Transaminitis Core Measures/Misc (05/30) Acute Coronary Syndrome ACS Diagnosis: No Congestive Heart Failure Congestive Heart Failure Diagnosis No Cerebrovascular Accident CVA/TIA Diagnosis: No VTE (View Protocol) VTE Risk Factors Age>40 No Mechanical VTE Prophylaxis d/t N/A MechProphylax Ordered No VTE Pharm Prophylaxis d/t NA PharmProphylax ordered Sepsis (View protocol) Sepsis Present: No Purvi Lema 12/19/17 0305: Resident Review Statement Resident Statement: examined this patient, discussed with international operations manager, agreed with international operations manager, reviewed EMR data (avail) Other Findings: 87-year-old gentleman, former smoker, past medical history significant for renal cell cancer status post left nephrectomy October 2017, hypertension, bradycardia status post pacemaker placement in 2013, coronary artery disease, WA in 1975, bilateral carotid endarterectomy with stents, severe peripheral vascular disease status post bilateral iliac stents,GI bleed secondary to duodenal ulcer, pancreatic cyst, chronic kidney disease stage III coming in for evaluation of abdominal pain of 4 days duration. Reports pain is midepigastric pain that resolved on its own associated with bilious nonbloody vomiting. However yesterday evening he had another episode of abdominal pain without resolution, associated nausea. Reports having a similar episode in 2014 which is thought to be secondary to gallstones. Denies fever, chills, shortness of breath, chest pain, palpitations, diarrhea, melena, hematuria, dysuria. Vitals on admission temperature 96.6, heart rate 88, respiratory 20, blood pressure 184/126 trended down to 119/51. Examination as above. Labs white count 9.6, hemoglobin 11.5, hematocrit 35.0, platelet 207, sodium 141 , potassium 3.8, chloride 105, bicarbonate 25, BUN/creatinine 24, creatinine 1.7 [baseline 1.5] Glucose 152, AST 680, ALT 473, ALP 307, lipase 6000 845, troponin 0.01 EKG shows paced rhythm with QTC of 467 CT abdomen wo contrast : No acute findings in the abdomen or pelvis. Cholelithiasis without additional findings to suggest acute cholecystitis. Status post left nephrectomy. Unchanged appearance of scarring extending into the pelvis. Unchanged appearance of the right kidney with renal cyst and exophytic upper pole lesion which likely represents proteinaceous or hemorrhagic cyst. Colonic diverticulosis without diverticulitis. Problem list: elevated lipase Transaminitis Coronary artery disease Severe peripheral vascular disease Pancreatic cyst Chronic kidney cyst disease stage III Bradycardia status post pacemaker placement RCC s/p left nephrectomy Assessment and plan, Elevated lipase Likely secondary to acute biliary pancreatitis, admit to general medicine floor, vitals per protocol BISAP score 2 [age and pl effusion (however is chronic)] Will keep nothing by mouth Ringer lactate at 200 mL advance diet as tolerated Follow-up lipid panel in the morning, review of medications showed that he is not on any medications that could cause pancreatitis GI consult in the morning Follow-up lipid panel, LFTs, TSH, LDH and GGT in the morning Right upper quadrant ultrasound to evaluate the gallbladder Pancreatitic cyst Followed by Dr. Colvin, states that he is due to have an MRCP sometime this week Continue home meds of nifedinpin and atenolol with holding parameters, also continue his baby aspirin and Plavix. In view of transaminitis hold his statin and avoid nephrotoxic and hepatotoxic medications DVT prophylaxis with subcutaneous heparin Patient is full code Pain control with by mouth Korey Lau MD 12/19/17 0340: Attending MD Review Statement Attending Statement Attending MD Statement: examined this patient, discuss w/resident/PA/WALLET ASSEMBLER, agreed w/resident/PA/WALLET ASSEMBLER, discussed with family, discussed with nursing Attending Assessment/Plan: Mr. Hall is an 87-year-old male with h/o severe GI bleed 3 weeks ago from duodenal ulcer (s/p 7 units of PRBC), PPM for bradyarrthythmia, CAD status post WA, PAD s/p stent placement, b/l CEA with stents, RCC status post recent left nephrectomy, HTN, HLD who presents with n/v/ abdominal pain for 3 days. On examination - vitals - BP of 154/60, HR of 64, Temp: 98.1, Saturating 97% on room air. General Appearance Alert, Oriented X3 Skin Temp/Moisture Exam: Warm/Dry HEENT Atraumatic, PERRLA, Neck Supple, No JVD Cardiovascular Regular Rate, Normal S1, Normal S2 Lungs Clear to Auscultatio Abdomen Normal Bowel Sounds, Soft, minimal epigastric tenderness Neurological No focal neurological deficit Extremities No Clubbing, No Cyanosis, No Edema Assessement 1. Acute Pancreatitis with elevated lipase in the 6000's 2. Transaminitis - Hepatocellular/ Cholestatic pattern with normal bilirubin levels 3. Chronic pancreatic cyst - fu with Dr. Pleitez 4. Hypertension 5. RCC - s/p Nephrectomy in Oct 2017 Plan NPO, IVF, RUQ USG, pain control, antiemetics CT Abdomen was not remarkable for acute abnormalities Obtain repeat LFTs, and get TSH, LDH, GGT levels Obtain triglyceride levels Heparin SQ TID for DVT Px
[2017-12-19] MEDS ORDERED: ASPIRIN81 M4 PO (02:01)
[2017-12-19 02:45] VITALS: BP 154/60
[2017-12-19 06:20] VITALS: BP 130/66
[2017-12-19 08:29] LABS: ABSOLUTE BASOPHIL COUNT 0 /CUMM (0.0-0.2); ABSOLUTE EOSINOPHIL COUNT 0.1 /CUMM (0.0-0.7); ABSOLUTE LYMPH COUNT 1.3 /CUMM (1.2-3.4); ABSOLUTE MONOCYTE COUNT 0.4 /CUMM (0.10-0.60); BASOPHIL % 0.4 % (0.0-2.0); GRANULOCYTE % 68.2 % (42.2-75.2); MEAN CORPUSCULAR HGB 29.2 PG (27.0-31.0); MEAN CORPUSCULAR HGB CONC 33.3 G/DL (33.0-37.0); MEAN CORPUSCULAR VOLUME 87.8 FL (80.0-94.0); MEAN PLATELET VOLUME 9.9 FL (7.4-10.4); PLATELET COUNT 161 /CUMM (130-400); RBC DISTRIBUTION WIDTH 16.6 % (11.5-14.5); RED BLOOD CELL CT 3.53 /CUMM (4.70-6.10); WHITE BLOOD CELL COUNT 5.9 /CUMM (4.8-10.8)
[2017-12-19 08:35] LABS: PT 12.4 SEC (9.4-12.5); PTT 28 SEC (25-37)
--- NOTE | 2017-12-19 13:58 | PN- Att Addend ---
Attending Addendum Attending Brief Note 87 yr old male with past medical history significant for bradyarrhythmia status post permanent pacemaker placement, CAD status post DC, PVD status post iliac stent placement, bilateral carotid endarterectomy with stents placed, RCC status post left nephrectomy in October of 2017, pancreatic cyst, recent admission for severe GI bleed, HTN, HLD who presents with a three-day history of intermittent abdominal pain, nausea and vomiting. Patient seen and examined at bedside. Acute pancreatitis- Patient says his abdominal pain is better. Patient was recently seen by Dr. Juarez in the clinic for anemia and was started on iron supplementation. Patient also on CAT scan of the abdomen was found to have gallstones so we are cannot do a MRCP on Wednesday to further evaluate the etiology. Gastroenterology has been consulted. His LFTs are slightly worse today than yesterday. We will repeat the LFTs tomorrow. Keep him nothing by mouth for now and continue with IV fluids. Discussed with patient and patient's family at bedside the care plan.
--- NOTE | 2017-12-19 14:11 | Cons- Gastroenterology ---
General Information and HPI Consulting Request Date of Consult: 12/19/17 Requested By: Korey Bolivar MD Reason for Consult: Abdominal pain, elevated LFTs Source of Information: patient, family, old records History of Present Illness: The patient was recently admitted for GI bleed and found to have a duodenal ulcer. His aspirin and Plavix were restarted last week. He denies intercurrent heartburn, indigestion, nausea, abdominal pain, black stools, blood per rectum. His bowel movements have been regular. In 2014 the patient had an episode of pancreatitis and was found to have gallstones. He never underwent ERCP or cholecystectomy, as he was anticipated to have an outpatient evaluation of pancreatic head fullness, to include endoscopic ultrasound. Since then he has been followed for a stable pancreatic cystic lesion. The patient now presents with 3 successive nights of severe epigastric pain, nausea, and vomiting. Last night was the most severe and elongated episode. Today he has upper abdominal soreness only, and no nausea. There has been no fever, chills, diaphoresis, chest pain, shortness of breath, jaundice, dark urine. Of note the patient has only 1 kidney status post nephrectomy for renal cell carcinoma. He also has a pacemaker. Allergies/Medications Allergies: Coded Allergies: adhesive tape (UNKNOWN 11/06/17) Home Med List: Aspirin (Aspirin*) 81 MG TAB.CHEW 1 TAB PO DAILY HEART (Reported) Atenolol 25 MG TABLET 1 TAB PO DAILY HTN (Reported) Atorvastatin Calcium 40 MG TABLET 1 TAB PO DAILY CHOL (Reported) Clopidogrel Bisulfate (Clopidogrel) 75 MG TABLET 1 TAB PO DAILY THINNER ( Reported) Nifedipine (Nifedipine ER) 30 MG TAB.ER.24 1 TAB PO DAILY Heart (Reported) Pantoprazole Sodium 40 MG TABLET.DR 1 TAB PO DAILY GERD (Reported) Current Medications: Current Medications Sig/Moira Start time Last Medication Dose Route Stop Time Status Admin Aspirin 81 MG DAILY 12/19 1000 AC 12/19 PO 0953 Atenolol 25 MG DAILY 12/19 1000 AC 12/19 PO 0953 Clopidogrel Bisulfate 75 MG DAILY 12/19 1000 AC 12/19 PO 0953 Heparin Sodium 5,000 UNIT Q8 12/19 0600 AC 12/19 (Porcine) SC 0536 Hydromorphone HCl 2 MG Q4P PRN 12/19 0200 AC PO Lactated Ringer's 1,000 ML .Q5H 12/19 0130 AC 12/19 IV 1344 Morphine Sulfate 0 .STK-MED ONE 12/18 235 DC .ROUTE Morphine Sulfate 4 MG ONCE ONE 12/18 2345 DC 12/19 IV 12/18 2345 0003 Nifedipine 30 MG DAILY 12/19 1000 AC 12/19 PO 0953 Omeprazole 40 MG DAILY AC 12/19 0700 AC 12/19 PO 0537 Ondansetron HCl 0 .STK-MED ONE 12/18 2356 DC .ROUTE Ondansetron HCl 4 MG ONCE ONE 12/18 2345 DC 12/19 IV 12/18 2345 0003 Sodium Chloride 1,000 ML BOLUS ONE 12/18 234 DC 12/19 IV 12/19 0044 0003 Past History Travel History Traveled to [place] past 21 day No Medical History Blood Transfusion Hx: Yes Neurological: NONE EENT: hearing loss Cardiovascular: CAD, hypertension, hyperlipidemia, myocardial infarction, PVD, STEMI, PACEMAKER (BRADYCARDIA) Respiratory: pneumonia Gastrointestinal: remote hx colon polyps. 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 FH: heart attack FATHER, , Age 67; Cause: Myocardial infarct. FH: heart attack Psychosocial History Where Do You Live? Home Who Do You Live With? spouse Services at Home: None Primary Language: French Smoking Status: Former Smoker (distant, 20 pack year) ETOH Use: occasional use Illicit Drug Use: denies illicit drug use Living Will? yes Functional Ability ADLs Independent: dressing, eating, toileting, bathing. Ambulation: independent IADLs Independent: shopping, housework, finances, food prep, telephone, transportation , medication admin. Review of Systems Review of Systems Constitutional: Denies: chills, fever. EENTM: Denies: icterus, epistaxis. Cardiovascular: Denies: chest pain, syncope. Respiratory: Denies: cough, short of breath. GI: Reports: see HPI. Genitourinary: Denies: dysuria, hematuria. Musculoskeletal: Denies: muscle stiffness, neck pain. Skin: Denies: jaundice, lesions. Neurological/Psychological: Denies: cognitive dysfunction, headache. Hematologic/Endocrine: Denies: bruising, bleeding. Exam & Diagnostic Data Vital Signs and I&O Vital Signs Date Time Temp Pulse Resp B/P B/P Pulse O2 O2 Flow FiO2 Mean Ox Delivery Rate 12/19 952 63 130/66 12/19 0953 63 130/66 12/19 0620 98.3 63 18 130/66 96 Room Air 12/19 0245 98.1 64 18 154/60 97 Room Air 12/19 0124 59 119/57 96 Room Air 12/18 2348 69 20 127/61 100 Room Air 12/18 2346 69 126/61 12/18 2334 96.6 88 24 184/126 Intake & Output 12/19 1600 12/19 0400 12/18 1600 12/18 0400 12/17 1600 12/17 0400 Intake Total 610 1000 Output Total 600 Balance 10 1000 Intake, IV 600 1000 Intake, Oral 10 Number 0 Bowel Movements Output, Urine 600 Patient 210 lb Weight Physical Exam: Well-developed, well-nourished elderly male. No apparent distress. Alert and oriented with normal cognition. Skin normal without jaundice, stigmata of liver disease, rash, lesion, mottling, petechiae, purpura. No adenopathy. Sclera anicteric. No oropharyngeal lesion. Neck supple without mass. Heart regular rhythm with extra sounds, and a 2/6 systolic murmur. Lungs clear bilaterally. Right chest pacemaker. Abdomen mildly distended, soft, normal bowel sounds;, no tenderness, mass or organomegaly. Extremities with trace pretibial edema, and with normal distal pulses. Results Pertinent Lab Results: Laboratory Tests 12/19 12/19 0800 0243 Chemistry Sodium (137 - 145 mmol/L) 142 Potassium (3.5 - 5.1 mmol/L) 4.4 Chloride (98 - 107 mmol/L) 107 Carbon Dioxide (22 - 30 mmol/L) 25 Anion Gap (5 - 16) 10 BUN (9 - 20 mg/dL) 21 H Creatinine (0.7 - 1.2 mg/dL) 1.4 H Estimated GFR (>60 ml/min) 48 L BUN/Creatinine Ratio (7 - 25 %) 15.0 Lactic Acid Cancelled Total Bilirubin (0.2 - 1.3 mg/dL) 1.4 H Direct Bilirubin (< 0.4 mg/dL) 1.2 H AST (17 - 59 U/L) 829 H ALT (21 - 72 U/L) 664 H Alkaline Phosphatase (< 127 U/L) 304 H Lactate Dehydrogenase (313 - 618 U/L) 2478 H Total Protein (6.3 - 8.2 g/dL) 6.2 L Albumin (3.5 - 5.0 g/dL) 2.9 L Triglycerides (<150 mg/dL) 72 Cholesterol (< 200 MG/DL) 101 LDL Cholesterol, Calc (65 - 129 mg/dL) 55 L HDL Cholesterol (40 - 60 mg/dL) 32 L Cholesterol/HDL Ratio (0.00 - 4.88 %) 3 TSH (0.270 - 4.200 uIU/mL) 3.720 Free T4 (0.85 - 1.93 ng/dL) 1.41 Coagulation PT (9.4 - 12.5 SEC) 12.4 INR (0.90 - 1.17) 1.14 APTT (25 - 37 SEC) 28 Hematology CBC w Diff NO MAN DIFF REQ WBC (4.8 - 10.8 /CUMM) 5.9 RBC (4.70 - 6.10 /CUMM) 3.53 L Hgb (14.0 - 18.0 G/DL) 10.3 L Hct (42 - 52 %) 31.0 L MCV (80.0 - 94.0 FL) 87.8 MCH (27.0 - 31.0 PG) 29.2 MCHC (33.0 - 37.0 G/DL) 33.3 RDW (11.5 - 14.5 %) 16.6 H Plt Count (130 - 400 /CUMM) 161 MPV (7.4 - 10.4 FL) 9.9 Gran % (42.2 - 75.2 %) 68.2 Lymphocytes % (20.5 - 51.1 %) 22.6 Monocytes % (1.7 - 9.3 %) 6.8 Eosinophils % (0 - 5 %) 2.0 Basophils % (0.0 - 2.0 %) 0.4 Absolute Granulocytes (1.4 - 6.5 /CUMM) 4.0 Absolute Lymphocytes (1.2 - 3.4 /CUMM) 1.3 Absolute Monocytes (0.10 - 0.60 /CUMM) 0.4 Absolute Eosinophils (0.0 - 0.7 /CUMM) 0.1 Absolute Basophils (0.0 - 0.2 /CUMM) 0 12/18 2345 Chemistry Sodium (137 - 145 mmol/L) 141 Potassium (3.5 - 5.1 mmol/L) 3.8 Chloride (98 - 107 mmol/L) 105 Carbon Dioxide (22 - 30 mmol/L) 25 Anion Gap (5 - 16) 11 BUN (9 - 20 mg/dL) 24 H Creatinine (0.7 - 1.2 mg/dL) 1.7 H Estimated GFR (>60 ml/min) 38 L BUN/Creatinine Ratio (7 - 25 %) 14.1 Glucose (65 - 99 mg/dL) 152 H Lactic Acid (0.7 - 2.1 mmol/L) 1.4 Calcium (8.4 - 10.2 mg/dL) 8.7 Total Bilirubin (0.2 - 1.3 mg/dL) 0.9 GGT (15 - 73 U/L) 170 H AST (17 - 59 U/L) 680 H ALT (21 - 72 U/L) 473 H Alkaline Phosphatase (< 127 U/L) 307 H Troponin I (<0.11 ng/ml) < 0.01 Total Protein (6.3 - 8.2 g/dL) 7.3 Albumin (3.5 - 5.0 g/dL) 3.6 Globulin (1.9 - 4.2 gm/dL) 3.7 Albumin/Globulin Ratio (1.1 - 2.2 %) 1.0 L Lipase (23 - 300 U/L) 6845 H Hematology CBC w Diff NO MAN DIFF REQ WBC (4.8 - 10.8 /CUMM) 9.6 RBC (4.70 - 6.10 /CUMM) 4.03 L Hgb (14.0 - 18.0 G/DL) 11.5 L Hct (42 - 52 %) 35.0 L MCV (80.0 - 94.0 FL) 86.9 MCH (27.0 - 31.0 PG) 28.5 MCHC (33.0 - 37.0 G/DL) 32.8 L RDW (11.5 - 14.5 %) 16.4 H Plt Count (130 - 400 /CUMM) 207 MPV (7.4 - 10.4 FL) 10.0 Gran % (42.2 - 75.2 %) 73.4 Lymphocytes % (20.5 - 51.1 %) 17.7 L Monocytes % (1.7 - 9.3 %) 6.5 Eosinophils % (0 - 5 %) 2.0 Basophils % (0.0 - 2.0 %) 0.4 Absolute Granulocytes (1.4 - 6.5 /CUMM) 7.1 H Absolute Lymphocytes (1.2 - 3.4 /CUMM) 1.7 Absolute Monocytes (0.10 - 0.60 /CUMM) 0.6 Absolute Eosinophils (0.0 - 0.7 /CUMM) 0.2 Absolute Basophils (0.0 - 0.2 /CUMM) 0 Imaging/Other Studies: CT ABDOMEN AND PELVIS WITHOUT CONTRAST LIVER, GALLBLADDER, AND BILIARY TREE: The liver is normal in size, shape, and attenuation. No focal hepatic lesion or biliary ductal dilatation is present. Multiple small gallstones are seen layering in the gallbladder lumen, unchanged. No gallbladder wall thickening or pericholecystic fluid. PANCREAS: There is a hypoattenuating structure at the neck of the pancreas, measuring 1 cm. This appears cystic and is unchanged from prior. No pancreatic ductal dilatation. The pancreatic parenchyma is otherwise unremarkable. GASTROINTESTINAL TRACT: The stomach is unremarkable. The small bowel is normal in caliber. No obstruction. There is colonic diverticulosis, greatest at the sigmoid colon. Stranding seen adjacent to the sigmoid colon appears chronic and is likely associated with scarring. There is no focal wall thickening with adjacent inflammation seen to suggest diverticulitis. No free air or free fluid. Normal appendix. IMPRESSION: No acute findings in the abdomen or pelvis. Cholelithiasis without additional findings to suggest acute cholecystitis. Status post left nephrectomy. Unchanged appearance of scarring extending into the pelvis. Unchanged appearance of the right kidney with renal cyst and exophytic upper pole lesion which likely represents proteinaceous or hemorrhagic cyst. Colonic diverticulosis without diverticulitis. Assessment/Plan Assessment/Recommendations: 1. Recurrent epigastric pain with newly elevated liver function tests. Chemical pancreatitis without imaging findings. Clinically, this likely represents choledocholithiasis. There is no apparent cholangitis. 2. Pancreatic cystic lesion, under outpatient evaluation. 3. Recent GI bleed secondary to duodenal ulcer. Recommendations * Clear liquid diet; nothing by mouth after midnight * Continue maintenance IV fluids * Parenteral analgesics and antiemetics as necessary * Hold Plavix; May continue aspirin (especially given carotid and peripheral stents) * Continue PPI therapy * MRCP/MRI of the pancreas tomorrow morning. Apparently he can undergo MRI despite his pacemaker, but would verify. * Follow CBC, LFTs * Decision regarding ERCP with sphincterotomy and/or cholecystectomy will follow the results of the MRI. Ideally, would hope to be off Plavix for 5 days prior to intervention, but clinical course will dictate. Copies To: Rizwan CORTES,Bhavin Harris; Mayela CORTES,M. Luke Consult Acknowledgment - Thank you for your consult request.
[2017-12-19 15:36] VITALS: BP 120/60
--- NOTE | 2017-12-19 15:40 | ULTRASOUND REPORT ---
EXAMINATION: US ABDOMEN COMPLETE CLINICAL INFORMATION: Abdominal pain and nausea. COMPARISON: CT abdomen pelvis earlier today. TECHNIQUE: Real-time imaging of the abdominal viscera. FINDINGS: PANCREAS: Not well visualized secondary to bowel gas obscuration. ABDOMINAL AORTA: The proximal segment is normal in caliber. INFERIOR VENA CAVA: Visualized portions are normal. LIVER: Unremarkable. The liver demonstrates normal size, contour and echogenicity. No focal lesion or intrahepatic biliary duct dilatation. GALLBLADDER: Cholelithiasis demonstrated. The gallbladder is incompletely distended with bladder wall thickness measuring up to 0.6 cm. No sonographic Chan sign. COMMON BILE DUCT: Normal in caliber measuring 0.4 cm in diameter. RIGHT KIDNEY: There is a 3.5 cm cyst along the upper pole of the right kidney without convincing suspicious features, favor Bosniak [address] scan. No hydronephrosis. No renal calculi or focal parenchymal lesions. The kidney measures 12.4 cm in maximum dimension. LEFT KIDNEY: Absent. SPLEEN: Normal. The spleen measures 11.3 cm in maximum dimension. FREE FLUID: None. IMPRESSION: 1. Cholelithiasis. Mild gallbladder wall thickening likely represents sequela of underdistention. No sonographic Chan sign to diagnose cholecystitis. 2. No biliary ductal dilatation. 3. Additional findings as above.
[2017-12-19 22:39] VITALS: BP 110/56
[2017-12-20 06:38] VITALS: BP 116/62
--- NOTE | 2017-12-20 07:14 | PN- Housestaff ---
See Addendum Subjective Follow-up For: Abdominal Pain Subjective: Mr Song was seen and examined this morning. He is resting comfortably in bed. Says that he feels better this morning and requests if the MRI can done sooner rather than later. He does feel hungry. States that he has not expressed any more nausea or vomiting. Pain is still present although feels that he is better compared to the time of admission. Denies any fever, chills, nausea, vomiting. was at bedside of on subsequent visit. Review of Systems Constitutional: Reports: see HPI. Objective Last 24 Hrs of Vital Signs/I&O Vital Signs Date Time Temp Pulse Resp B/P B/P Pulse O2 O2 Flow FiO2 Mean Ox Delivery Rate 12/21 855 98.2 60 18 116/62 12/20 0856 98.2 60 18 116/62 12/20 0638 98.2 60 18 116/62 94 Room Air 12/19 2239 97.8 71 18 110/56 94 Room Air 12/19 1536 97.5 72 18 120/60 98 Intake & Output 12/20 1600 12/20 0800 12/20 0000 Intake Total 1600 900 Output Total 528 766 8622 Balance -300 950 -950 Intake, IV 1600 800 Intake, Oral 100 Output, Urine 326 045 5026 Patient 1036.572 kg Weight Physical Exam General Appearance: Alert, Oriented X3, Cooperative HEENT: Mucous Membr. moist/pink Lymphatic: Cervical nl Cardiovascular: Regular Rate, Normal S1, Normal S2 Lungs: Clear to Auscultation Abdomen: Normal Bowel Sounds, Soft, Mild Epigastric Tenderness Neurological: Normal Gait, Normal Speech, Strength at 5/5 X4 Ext Extremities: No Clubbing, No Edema, Normal Pulses Vascular: Normal Pulses Current Medications: Current Medications Sig/Moira Start time Last Medication Dose Route Stop Time Status Admin Aspirin 81 MG DAILY 12/19 1000 AC 12/20 PO 0856 Atenolol 25 MG DAILY 12/19 1000 AC 12/20 PO 0856 Clopidogrel Bisulfate 75 MG DAILY 12/19 1000 DC 12/19 PO 0953 Heparin Sodium 5,000 UNIT Q8 12/19 0600 AC 12/19 (Porcine) SC 0536 Hydromorphone HCl 2 MG Q4P PRN 12/19 0200 AC PO Lactated Ringer's 1,000 ML .Q5H 04/08 0130 AC 12/20 IV 1152 Nifedipine 30 MG DAILY 12/19 1000 AC 12/20 PO 0856 Omeprazole 40 MG DAILY AC 12/19 0700 AC 12/20 PO 0531 Patient Medication 1 ED ONE ONE 12/20 1500 [facility] ED 12/20 1501 Last 24 Hrs of Lab/Dhruv Results Last 24 Hrs of Labs/Mics: Laboratory Tests 12/20/17 0755: Anion Gap 10, Estimated GFR 48 L, BUN/Creatinine Ratio 10.0, Total Bilirubin 1.5 H, Direct Bilirubin 1.0 H, AST 395 H, ALT 482 H, Alkaline Phosphatase 327 H, Total Protein 5.9 L, Albumin 2.7 L, CBC w Diff NO MAN DIFF REQ, RBC 3.65 L, MCV 87.0, MCH 29.0, MCHC 33.4, RDW 16.6 H, MPV 10.3, Gran % 66.7, Lymphocytes % 20.9, Monocytes % 5.3, Eosinophils % 6.4 H, Basophils % 0.7, Absolute Granulocytes 3.7, Absolute Lymphocytes 1.2, Absolute Monocytes 0.3, Absolute Eosinophils 0.4, Absolute Basophils 0 Assessment/Plan Assessment: Patient is an 87-year-old male with an extensive past medical history significant for 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 Vital signs on admission: T 96.6 P 88, RR 22, BP 184/126 (came down to 126/61 with just pain control), saturating 100% on room air Labs on admission: WBC 9.6, H/H 11.5/35, platelets 207, BUN 24, creatinine 1.7, AST 680, ALT 473, alkaline phosphatase 307, lipase 6845 Problem list #Pancreatitis,likely due to gallstones, no cholecystitis, patient does not drink alcohol heavily #Transaminitis #Chronic medical problems, renal function appears to be at baseline Plan -Continue on general medicine -GI consult placed with answering service of Dr. Mata, patient follows with Dr. Pleitez -Right upper quadrant ultrasound -MRI performed (PM MRI compatible, Project Management Manager was present), no Acute pathology found. Evaluate for Cholesystectomy vs Sphincterotomy. -Continue PPI -Defer to GI to assess when can begin Plavix again. -Can advance diet, clears for now, if further abdominal pain, make NPO. -LR, reduce fluids from 200 ml/hr to 50 ml/hr, X 1 more bag. -Follow-up CBC, BEP, TFTs, and coags in a.m. DVT prophylaxis: Subcutaneous heparin, Alps CODE STATUS: Full code Problem List: 1. Transaminitis 2. Gallstone pancreatitis 3. Abdominal pain Pain Ratin Pain Location: Epigastric Pain Goal: Remain pain free Pain Plan: Dilaudid Tomorrow's Labs & Rationales: CBC BEP LFT
[2017-12-20 08:55] LABS: ABSOLUTE BASOPHIL COUNT 0 /CUMM (0.0-0.2); ABSOLUTE EOSINOPHIL COUNT 0.4 /CUMM (0.0-0.7); ABSOLUTE GRANULOCYTE CT 3.7 /CUMM (1.4-6.5); ABSOLUTE LYMPH COUNT 1.2 /CUMM (1.2-3.4); ABSOLUTE MONOCYTE COUNT 0.3 /CUMM (0.10-0.60); BASOPHIL % 0.7 % (0.0-2.0); EOSINOPHIL % 6.4 % (0-5); GRANULOCYTE % 66.7 % (42.2-75.2); HEMATOCRIT 31.8 % (42-52); MEAN CORPUSCULAR HGB CONC 33.4 G/DL (33.0-37.0); MEAN PLATELET VOLUME 10.3 FL (7.4-10.4); PLATELET COUNT 161 /CUMM (130-400); RBC DISTRIBUTION WIDTH 16.6 % (11.5-14.5); RED BLOOD CELL CT 3.65 /CUMM (4.70-6.10); WHITE BLOOD CELL COUNT 5.5 /CUMM (4.8-10.8)
--- NOTE | 2017-12-20 14:29 | Cons- Cardiology ---
General Information and HPI Consulting Request Date of Consult: 12/20/17 Requested By: Korey Bolivar MD Reason for Consult: Need for MRI in a patient with MRI conditional pacemaker Source of Information: patient, old records Exam Limitations: no limitations History of Present Illness: The patient is an 87-year-old man with a [employer] MRI conditional device implanted in 2010 for heart block. He is requiring an MRI for GI evaluation. It was verified that his pacemaker is MRI conditional and the leads are appropriate. X-ray was reviewed by radiology and no stray metal or abandoned leads were found. The pacemaker was interrogated and the thresholds were found to be within the allowed range, as were the lead parameters. The pacemaker was then programmed into Sure Scan mode and DOO Mode, as the patient is pacemaker dependent. The patient successfully underwent the MRI/MRA study. At the end of the procedure the pacemaker was programmed back to his previous mode and Sure Scan was turned off. There were no complications of the procedure and all parameters were verified. Allergies/Medications Allergies: Coded Allergies: adhesive tape (UNKNOWN 11/06/17) Home Med List: Aspirin (Aspirin*) 81 MG TAB.CHEW 1 TAB PO DAILY HEART (Reported) Atenolol 25 MG TABLET 1 TAB PO DAILY HTN (Reported) Atorvastatin Calcium 40 MG TABLET 1 TAB PO DAILY CHOL (Reported) Clopidogrel Bisulfate (Clopidogrel) 75 MG TABLET 1 TAB PO DAILY THINNER ( Reported) Nifedipine (Nifedipine ER) 30 MG TAB.ER.24 1 TAB PO DAILY Heart (Reported) Pantoprazole Sodium 40 MG TABLET.DR 1 TAB PO DAILY GERD (Reported) Past History Travel History Traveled to [place] past 21 day No Medical History Blood Transfusion Hx: Yes Neurological: NONE EENT: hearing loss Cardiovascular: CAD, hypertension, hyperlipidemia, myocardial infarction, PVD, STEMI, PACEMAKER (BRADYCARDIA) Respiratory: pneumonia Gastrointestinal: remote hx colon polyps. 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 FH: heart attack FATHER, , Age 67; Cause: Myocardial infarct. FH: heart attack Psychosocial History Where Do You Live? Home Who Do You Live With? spouse Services at Home: None Primary Language: Irish Smoking Status: Former Smoker (distant, 20 pack year) ETOH Use: occasional use Illicit Drug Use: denies illicit drug use Living Will? yes Functional Ability ADLs Independent: dressing, eating, toileting, bathing. Ambulation: independent IADLs Independent: shopping, housework, finances, food prep, telephone, transportation , medication admin. Exam & Diagnostic Data Vital Signs and I&O Vital Signs Date Time Temp Pulse Resp B/P B/P Pulse O2 O2 Flow FiO2 Mean Ox Delivery Rate 12/21 855 98.2 60 18 116/62 12/20 0856 98.2 60 18 116/62 12/20 0638 98.2 60 18 116/62 94 Room Air 12/19 2239 97.8 71 18 110/56 94 Room Air 12/19 1536 97.5 72 18 120/60 98 Intake & Output 12/20 1600 12/20 0800 12/20 0000 12/19 1600 12/20 0700 12/19 0000 Intake Total 0496 373 3440 1610 Output Total 103 322 8407 1300 300 Balance -300 950 -950 1100 1310 Intake, IV 4882 246 3601 1600 Intake, Oral 100 800 10 Number 0 Bowel Movements Output, Urine 371 181 0288 1300 300 Patient 2285 lb 210 lb 210 lb Weight Physical Exam: The pacemaker is located in the right upper anterior chest wall and is well- healed. Diagnostic Data EKG Results Paced rhythm Assessment/Plan Assessment/Plan This patient underwent an MRI of his abdomen with an MRI conditional pacemaker device in place. The device was programmed to the SureScan mode and a non- sensing mode, and the scan was performed without complications. At the end of the scan the pacemaker was programmed back to the previous parameters. Consult Acknowledgment - Thank you for your consult request.
[2017-12-20 15:26] VITALS: BP 110/70
--- NOTE | 2017-12-20 15:27 | MRI REPORT ---
EXAMINATION: MR ABDOMEN WITHOUT CONTRAST/MRCP CLINICAL INFORMATION: Cyst of pancreas. Presumptive diagnosis of gallstone pancreatitis. COMPARISON: Ultrasound of the abdomen dated 12/19/2017. CT scan of the abdomen and pelvis dated 12/19/2017 and 07/26/2015. MRI scan of the abdomen dated 11/09/2016. TECHNIQUE: An MRI scan of the abdomen was performed using multiple imaging sequences and imaging planes. As per the MRCP protocol, heavily T2-weighted 3-D high-resolution MRCP sequences were obtained in the coronal plane along with thin and thick slab coronal images and coronal MIP reconstructions obtained on the technologist workstation under concurrent physician supervision. FINDINGS: LIVER: The liver is normal in size and signal. No hepatic steatosis is seen. No focal cystic or solid mass is present. There is a trace amount of free fluid surrounding the liver and the spleen. GALLBLADDER/BILIARY TREE: The gallbladder is partially distended and appears unremarkable. Small amount of pericholecystic fluid is seen. No intra-or extrahepatic ductal dilatation is seen. Common bile duct measures 0.4 cm. No filling defect is seen within the common bile duct. PANCREAS: As seen previously, there are several cystic masses within the pancreas, the largest of which is seen in the pancreatic neck (series 2, image 14), measuring 1.1 x 1.5 x 0.9 cm versus 1.2 x 1.4 x 1.1 cm (11/09/2016). A second smaller cyst is seen in the pancreatic tail, measuring 0.9 x 0.6 cm, similar to the previous exam. Both of these masses may be connected to side branches but no definite connection to the main pancreatic duct is seen. On the MRCP sequences, there appear to be additional tiny cysts in the pancreatic head and pancreatic tail, all unchanged from prior exam. These findings may represent cystic side branch ectasia. The main pancreatic duct measures 0.2 cm in diameter. No variant anatomy is of the main pancreatic duct seen. There is a minimal peripancreatic edema. No peripancreatic defined fluid collections are seen. SPLEEN: Normal size and malrotated/displaced partially into the left renal bed. Splenic otherwise unremarkable. ADRENAL GLANDS AND KIDNEYS: Adrenal glands normal. The patient is status post left nephrectomy with no evidence of residual or recurrent mass in the nephrectomy bed. The right kidney is similar in appearance to prior exams. There is a 2.0 x 3.5 x 3.8 cm exophytic mass in the upper pole of the right kidney, appearing hyperintense on T1 weighted sequences and isointense on T2-weighted sequences (series 2, image 8), previously measuring 2.1 x 3.1 x 3.2 cm (11/09/2016). This was shown on prior imaging to represent a hyperintense hemorrhagic or proteinaceous cyst. In addition, there is a partially exophytic mid right renal simple T2 bright and T1 dark cyst in the mid right kidney, measuring 3.8 x 4.3 x 3.0 cm in size as compared to 3.3 x 3.9 x 2.9 cm (11/09/2016). No suspicious new focal mass or hydronephrosis. Nonspecific mild perinephric stranding is seen. BOWEL LOOPS: Grossly within normal limits. LYMPHOVASCULAR STRUCTURES: Abdominal aorta normal in caliber. No periaortic collections. No abdominal adenopathy or free fluid collection. BONES: Within normal limits to the extent included. Other: Trace amount of pleural fluid is seen bilaterally, left greater than right. IMPRESSION: 1. There is only a trace amount of edema seen surrounding the pancreas and a trace amount of edema surrounding the liver and spleen and gallbladder. Findings may be consistent with the patient's history of pancreatitis. No defined peripancreatic fluid collections are seen. 2. No variant ductal anatomy or abnormal pancreatic ductal dilatation is seen. 3. There are stable cystic masses in the pancreas, unchanged compared to prior studies dating back to 11/09/2016. There may be communication of these cystic structures to the side branches of the main pancreatic duct, but not to the main pancreatic duct itself. Findings may represent multiple IPMN's. The findings in the pancreatic tail may also be related to cystic side branch ectasia. Continued follow-up is recommended. 4. Status post left nephrectomy with no evidence of residual or recurrent mass. 5. Stable hemorrhagic/proteinaceous cyst in the upper pole of the right kidney and simple cyst in the mid right kidney. 6. Trace bilateral pleural fluid.
--- NOTE | 2017-12-20 19:18 | PN- Gastroenterology ---
Assessment/Plan GI Assessment/Recommendations: Gallstone pancreatitis with elevated liver associated enzymes. There has been no significant laboratory change. The patient remains pain free, and MRCP is negative for choledocholithiasis. There is no evident cholangitis. The patient most likely passed a common bile duct stone, and there is a common delay in improvement in LFTs. Conversely, there may be a falsely negative MRCP. Stable pancreatic cystic lesions. Recent GI bleed, secondary to duodenal ulcer, without recurrence. Recommendations * Advance to full liquid diet * Continue maintenance IV fluids * Parenteral analgesics and antiemetics as necessary * Continue to hold Plavix; may continue aspirin * Continue PPI therapy * Follow CBC, LFTs tomorrow morning * Defer decision regarding ERCP/sphincterotomy versus cholecystectomy. Will follow LFTs and patient's symptoms. In any event, optimally, would be off Plavix for 5 days prior to any intervention. Subjective Subjective: The patient denies abdominal pain, nausea, vomiting, fever, sweats, chills. He is tolerating clear liquid diet. Objective Vital Signs and I&Os Vital Signs Date Time Temp Pulse Resp B/P B/P Pulse O2 O2 Flow FiO2 Mean Ox Delivery Rate 12/20 1526 97.4 71 18 110/70 96 12/20 0856 98.2 60 18 116/62 12/20 0856 98.2 60 18 116/62 12/20 0638 98.2 60 18 116/62 94 Room Air 12/19 2239 97.8 71 18 110/56 94 Room Air Intake & Output 12/20 1600 12/20 0400 12/19 1600 12/19 0400 12/18 1600 12/18 0400 Intake Total 2040 900 3010 1000 Output Total 950 2150 1600 Balance 1090 -1250 1410 1000 Intake, IV 0073 577 6685 1000 Intake, Oral 240 100 810 Number 0 Bowel Movements Output, Urine 950 2150 1600 Patient 2285 lb 210 lb Weight Physical Exam: Alert and oriented. Sclera anicteric. Abdomen soft, nondistended, nontender. Current Medications: Current Medications Sig/Moira Start time Last Medication Dose Route Stop Time Status Admin Aspirin 81 MG DAILY 12/19 1000 AC 12/20 PO 0856 Atenolol 25 MG DAILY 12/19 1000 AC 12/20 PO 0856 Heparin Sodium 5,000 UNIT Q8 12/19 0600 AC 12/19 (Porcine) SC 0536 Hydromorphone HCl 2 MG Q4P PRN 12/19 0200 AC PO Lactated Ringer's 1,000 ML .Q20H 12/19 0130 DC 12/20 IV 12/20 1817 1152 Nifedipine 30 MG DAILY 12/19 1000 AC 12/20 PO 0856 Omeprazole 40 MG DAILY AC 12/19 0700 AC 12/20 PO 0531 Patient Medication 1 ED ONE ONE 12/20 1500 DC 12/20 Teaching ED 12/20 1501 1620 Results Pertinent Lab Results: Laboratory Tests 12/20 12/19 0755 0800 Chemistry Sodium (137 - 145 mmol/L) 142 142 Potassium (3.5 - 5.1 mmol/L) 4.2 4.4 Chloride (98 - 107 mmol/L) 107 107 Carbon Dioxide (22 - 30 mmol/L) 25 25 Anion Gap (5 - 16) 10 10 BUN (9 - 20 mg/dL) 14 21 H Creatinine (0.7 - 1.2 mg/dL) 1.4 H 1.4 H Estimated GFR (>60 ml/min) 48 L 48 L BUN/Creatinine Ratio (7 - 25 %) 10.0 15.0 Total Bilirubin (0.2 - 1.3 mg/dL) 1.5 H 1.4 H Direct Bilirubin (< 0.4 mg/dL) 1.0 H 1.2 H AST (17 - 59 U/L) 395 H 829 H ALT (21 - 72 U/L) 482 H 664 H Alkaline Phosphatase (< 127 U/L) 327 H 304 H Lactate Dehydrogenase (313 - 618 U/L) 2478 H Total Protein (6.3 - 8.2 g/dL) 5.9 L 6.2 L Albumin (3.5 - 5.0 g/dL) 2.7 L 2.9 L Triglycerides (<150 mg/dL) 72 Cholesterol (< 200 MG/DL) 101 LDL Cholesterol, Calc (65 - 129 mg/dL) 55 L HDL Cholesterol (40 - 60 mg/dL) 32 L Cholesterol/HDL Ratio (0.00 - 4.88 %) 3 TSH (0.270 - 4.200 uIU/mL) 3.720 Free T4 (0.85 - 1.93 ng/dL) 1.41 Coagulation PT (9.4 - 12.5 SEC) 12.4 INR (0.90 - 1.17) 1.14 APTT (25 - 37 SEC) 28 Hematology CBC w Diff NO MAN DIFF REQ NO MAN DIFF REQ WBC (4.8 - 10.8 /CUMM) 5.5 5.9 RBC (4.70 - 6.10 /CUMM) 3.65 L 3.53 L Hgb (14.0 - 18.0 G/DL) 10.6 L 10.3 L Hct (42 - 52 %) 31.8 L 31.0 L MCV (80.0 - 94.0 FL) 87.0 87.8 MCH (27.0 - 31.0 PG) 29.0 29.2 MCHC (33.0 - 37.0 G/DL) 33.4 33.3 RDW (11.5 - 14.5 %) 16.6 H 16.6 H Plt Count (130 - 400 /CUMM) 161 161 MPV (7.4 - 10.4 FL) 10.3 9.9 Gran % (42.2 - 75.2 %) 66.7 68.2 Lymphocytes % (20.5 - 51.1 %) 20.9 22.6 Monocytes % (1.7 - 9.3 %) 5.3 6.8 Eosinophils % (0 - 5 %) 6.4 H 2.0 Basophils % (0.0 - 2.0 %) 0.7 0.4 Absolute Granulocytes (1.4 - 6.5 /CUMM) 3.7 4.0 Absolute Lymphocytes (1.2 - 3.4 /CUMM) 1.2 1.3 Absolute Monocytes (0.10 - 0.60 /CUMM) 0.3 0.4 Absolute Eosinophils (0.0 - 0.7 /CUMM) 0.4 0.1 Absolute Basophils (0.0 - 0.2 /CUMM) 0 0 12/19 12/18 0243 2345 Chemistry Sodium (137 - 145 mmol/L) 141 Potassium (3.5 - 5.1 mmol/L) 3.8 Chloride (98 - 107 mmol/L) 105 Carbon Dioxide (22 - 30 mmol/L) 25 Anion Gap (5 - 16) 11 BUN (9 - 20 mg/dL) 24 H Creatinine (0.7 - 1.2 mg/dL) 1.7 H Estimated GFR (>60 ml/min) 38 L BUN/Creatinine Ratio (7 - 25 %) 14.1 Glucose (65 - 99 mg/dL) 152 H Lactic Acid (0.7 - 2.1 mmol/L) Cancelled 1.4 Calcium (8.4 - 10.2 mg/dL) 8.7 Total Bilirubin (0.2 - 1.3 mg/dL) 0.9 GGT (15 - 73 U/L) 170 H AST (17 - 59 U/L) 680 H ALT (21 - 72 U/L) 473 H Alkaline Phosphatase (< 127 U/L) 307 H Troponin I (<0.11 ng/ml) < 0.01 Total Protein (6.3 - 8.2 g/dL) 7.3 Albumin (3.5 - 5.0 g/dL) 3.6 Globulin (1.9 - 4.2 gm/dL) 3.7 Albumin/Globulin Ratio (1.1 - 2.2 %) 1.0 L Lipase (23 - 300 U/L) 6845 H Hematology CBC w Diff NO MAN DIFF REQ WBC (4.8 - 10.8 /CUMM) 9.6 RBC (4.70 - 6.10 /CUMM) 4.03 L Hgb (14.0 - 18.0 G/DL) 11.5 L Hct (42 - 52 %) 35.0 L MCV (80.0 - 94.0 FL) 86.9 MCH (27.0 - 31.0 PG) 28.5 MCHC (33.0 - 37.0 G/DL) 32.8 L RDW (11.5 - 14.5 %) 16.4 H Plt Count (130 - 400 /CUMM) 207 MPV (7.4 - 10.4 FL) 10.0 Gran % (42.2 - 75.2 %) 73.4 Lymphocytes % (20.5 - 51.1 %) 17.7 L Monocytes % (1.7 - 9.3 %) 6.5 Eosinophils % (0 - 5 %) 2.0 Basophils % (0.0 - 2.0 %) 0.4 Absolute Granulocytes (1.4 - 6.5 /CUMM) 7.1 H Absolute Lymphocytes (1.2 - 3.4 /CUMM) 1.7 Absolute Monocytes (0.10 - 0.60 /CUMM) 0.6 Absolute Eosinophils (0.0 - 0.7 /CUMM) 0.2 Absolute Basophils (0.0 - 0.2 /CUMM) 0 Imaging/Other Studies: MRCP with normal biliary tree, and no evident choledocholithiasis. Evidence of mild pancreatitis. Official report: MR ABDOMEN WITHOUT CONTRAST/MRCP CLINICAL INFORMATION: Cyst of pancreas. Presumptive diagnosis of gallstone pancreatitis. COMPARISON: Ultrasound of the abdomen dated 12/19/2017. CT scan of the abdomen and pelvis dated 12/19/2017 and 07/26/2015. MRI scan of the abdomen dated 11/09/2016. TECHNIQUE: An MRI scan of the abdomen was performed using multiple imaging sequences and imaging planes. As per the MRCP protocol, heavily T2-weighted 3-D high-resolution MRCP sequences were obtained in the coronal plane along with thin and thick slab coronal images and coronal MIP reconstructions obtained on the technologist workstation under concurrent physician supervision. FINDINGS: LIVER: The liver is normal in size and signal. No hepatic steatosis is seen. No focal cystic or solid mass is present. There is a trace amount of free fluid surrounding the liver and the spleen. GALLBLADDER/BILIARY TREE: The gallbladder is partially distended and appears unremarkable. Small amount of pericholecystic fluid is seen. No intra-or extrahepatic ductal dilatation is seen. Common bile duct measures 0.4 cm. No filling defect is seen within the common bile duct. PANCREAS: As seen previously, there are several cystic masses within the pancreas, the largest of which is seen in the pancreatic neck (series 2, image 14), measuring 1.1 x 1.5 x 0.9 cm versus 1.2 x 1.4 x 1.1 cm (11/09/2016). A second smaller cyst is seen in the pancreatic tail, measuring 0.9 x 0.6 cm, similar to the previous exam. Both of these masses may be connected to side branches but no definite connection to the main pancreatic duct is seen. On the MRCP sequences, there appear to be additional tiny cysts in the pancreatic head and pancreatic tail, all unchanged from prior exam. These findings may represent cystic side branch ectasia. The main pancreatic duct measures 0.2 cm in diameter. No variant anatomy is of the main pancreatic duct seen. There is a minimal peripancreatic edema. No peripancreatic defined fluid collections are seen. SPLEEN: Normal size and malrotated/displaced partially into the left renal bed. Splenic otherwise unremarkable. ADRENAL GLANDS AND KIDNEYS: Adrenal glands normal. The patient is status post left nephrectomy with no evidence of residual or recurrent mass in the nephrectomy bed. The right kidney is similar in appearance to prior exams. There is a 2.0 x 3.5 x 3.8 cm exophytic mass in the upper pole of the right kidney, appearing hyperintense on T1 weighted sequences and isointense on T2-weighted sequences (series 2, image 8), previously measuring 2.1 x 3.1 x 3.2 cm (11/09/2016). This was shown on prior imaging to represent a hyperintense hemorrhagic or proteinaceous cyst. In addition, there is a partially exophytic mid right renal simple T2 bright and T1 dark cyst in the mid right kidney, measuring 3.8 x 4.3 x 3.0 cm in size as compared to 3.3 x 3.9 x 2.9 cm (11/09/2016). No suspicious new focal mass or hydronephrosis. Nonspecific mild perinephric stranding is seen. BOWEL LOOPS: Grossly within normal limits. LYMPHOVASCULAR STRUCTURES: Abdominal aorta normal in caliber. No periaortic collections. No abdominal adenopathy or free fluid collection. BONES: Within normal limits to the extent included. Other: Trace amount of pleural fluid is seen bilaterally, left greater than right. IMPRESSION: 1. There is only a trace amount of edema seen surrounding the pancreas and a trace amount of edema surrounding the liver and spleen and gallbladder. Findings may be consistent with the patient's history of pancreatitis. No defined peripancreatic fluid collections are seen. 2. No variant ductal anatomy or abnormal pancreatic ductal dilatation is seen. 3. There are stable cystic masses in the pancreas, unchanged compared to prior studies dating back to 11/09/2016. There may be communication of these cystic structures to the side branches of the main pancreatic duct, but not to the main pancreatic duct itself. Findings may represent multiple IPMN's. The findings in the pancreatic tail may also be related to cystic side branch ectasia. Continued follow-up is recommended. 4. Status post left nephrectomy with no evidence of residual or recurrent mass. 5. Stable hemorrhagic/proteinaceous cyst in the upper pole of the right kidney and simple cyst in the mid right kidney. 6. Trace bilateral pleural fluid.
[2017-12-20 21:23] VITALS: BP 110/64
[2017-12-21 06:36] VITALS: BP 124/62
--- NOTE | 2017-12-21 07:15 | PN- Housestaff ---
Madyson CORTES,[facility] 12/21/17 0715: Subjective Follow-up For: Abdominal Pain Subjective: Mr Song was seen examined this morning. Resting comfortably in the chair beside his bed. Denies any issues overnight. He was able to tolerate by mouth intake. Currently pain-free. Denies any fever, chills, nausea, vomiting. Review of Systems Constitutional: Reports: see HPI. Objective Last 24 Hrs of Vital Signs/I&O Vital Signs Date Time Temp Pulse Resp B/P B/P Pulse O2 O2 Flow FiO2 Mean Ox Delivery Rate 12/21 1037 97.9 68 20 124/62 12/21 1036 97.9 68 20 124/62 12/21 0636 97.9 68 20 124/62 94 12/20 2123 98.5 70 18 110/64 94 Room Air 12/20 1526 97.4 71 18 110/70 96 Intake & Output 12/21 1600 12/21 0800 12/21 0000 Intake Total 200 1350 Output Total Balance 200 1350 Intake, IV 350 Intake, Oral 200 1000 Physical Exam General Appearance: Alert, Oriented X3, Cooperative Skin Temp/Moisture Exam: Warm/Dry Cardiovascular: Regular Rate, Normal S1, Normal S2 Lungs: Clear to Auscultation Abdomen: Normal Bowel Sounds, Soft, No Tenderness Neurological: Normal Gait, Normal Speech Extremities: No Edema Current Medications: Current Medications Sig/Moira Start time Last Medication Dose Route Stop Time Status Admin Aspirin 81 MG DAILY 12/19 1000 AC 12/21 PO 1037 Atenolol 25 MG DAILY 12/19 1000 AC 12/21 PO 1037 Heparin Sodium 5,000 UNIT Q8 12/19 0600 AC 12/19 (Porcine) SC 0536 Hydromorphone HCl 2 MG Q4P PRN 12/19 0200 AC PO Lactated Ringer's 1,000 ML .Q20H 12/19 0130 DC 12/20 IV 12/20 1817 1152 Nifedipine 30 MG DAILY 12/19 1000 AC 12/21 PO 1036 Omeprazole 40 MG DAILY AC 12/19 0700 AC 12/21 PO 0512 Patient Medication 1 ED ONE ONE 12/20 1500 DC 12/20 Teaching ED 12/20 1501 1620 Last 24 Hrs of Lab/Dhruv Results Last 24 Hrs of Labs/Mics: Laboratory Tests 12/21/17 0745: Anion Gap 11, Estimated GFR 44 L, BUN/Creatinine Ratio 10.0, Total Bilirubin 0.8, Direct Bilirubin 0.6 H, AST 204 H, ALT 374 H, Alkaline Phosphatase 316 H, Total Protein 6.5, Albumin 3.2 L, CBC w Diff NO MAN DIFF REQ, RBC 3.86 L, MCV 87.2, MCH 28.8, MCHC 33.0, RDW 16.5 H, MPV 10.0, Gran % 65.9, Lymphocytes % 22.4, Monocytes % 6.1, Eosinophils % 5.3 H, Basophils % 0.3, Absolute Granulocytes 4.6, Absolute Lymphocytes 1.6, Absolute Monocytes 0.4, Absolute Eosinophils 0.4, Absolute Basophils 0 Assessment/Plan Assessment: Patient is an 87-year-old male with an extensive past medical history significant for 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 Vital signs on admission: T 96.6 P 88, RR 22, BP 184/126 (came down to 126/61 with just pain control), saturating 100% on room air Labs on admission: WBC 9.6, H/H 11.5/35, platelets 207, BUN 24, creatinine 1.7, AST 680, ALT 473, alkaline phosphatase 307, lipase 6845 Problem list #Pancreatitis,likely due to gallstones, no cholecystitis, patient does not drink alcohol heavily #Transaminitis #Chronic medical problems, renal function appears to be at baseline Plan -Continue on general medicine -GI consult placed with answering service of Dr. Mata, patient follows with Dr. Hobbs -MRI performed (PM MRI compatible, H[employer] Car [employer] was present), no Acute pathology found. Evaluate for Cholesystectomy vs Sphincterotomy. -Continue PPI -Defer to GI to assess when can begin Plavix again currently on HOld . -Can advance diet, Full liquids. -DC supplemental fluid with LR -May continue aspirin -Follow-up CBC, BEP, TFTs, and coags in a.m. DVT prophylaxis: Subcutaneous heparin, Alps CODE STATUS: Full code Problem List: 1. Transaminitis 2. Gallstone pancreatitis 3. 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 The LFT's are trending down and patient denies any abdominal pain on full liquid diet. Off Plavix x 2 days now. Await GI follow-up today to determine course of Rx (?sphincterotomy/lap nazario). Would need to be off Plavix x 5 days for procedures.
[2017-12-21 08:31] LABS: ABSOLUTE BASOPHIL COUNT 0 /CUMM (0.0-0.2); ABSOLUTE EOSINOPHIL COUNT 0.4 /CUMM (0.0-0.7); ABSOLUTE GRANULOCYTE CT 4.6 /CUMM (1.4-6.5); ABSOLUTE LYMPH COUNT 1.6 /CUMM (1.2-3.4); ABSOLUTE MONOCYTE COUNT 0.4 /CUMM (0.10-0.60); BASOPHIL % 0.3 % (0.0-2.0); EOSINOPHIL % 5.3 % (0-5); GRANULOCYTE % 65.9 % (42.2-75.2); HEMATOCRIT 33.7 % (42-52); MEAN CORPUSCULAR HGB 28.8 PG (27.0-31.0); MEAN CORPUSCULAR VOLUME 87.2 FL (80.0-94.0); PLATELET COUNT 199 /CUMM (130-400); RBC DISTRIBUTION WIDTH 16.5 % (11.5-14.5); RED BLOOD CELL CT 3.86 /CUMM (4.70-6.10)
[2017-12-21 13:29] VITALS: BP 142/60
[2017-12-21 21:40] VITALS: BP 140/76
[2017-12-22 06:45] VITALS: BP 110/44
--- NOTE | 2017-12-22 07:23 | PN- Housestaff ---
PriyaariYassine howard 12/22/17 0723: Subjective Follow-up For: Gallstone pancreatitis Transaminitis Complaints: no complaints Subjective: Overnight there were no acute events. This morning Mr. Song states that he has been able to tolerate his diet without any recurrence of abdominal discomfort, nausea, vomiting, fevers, chills. He denies any chest pain or shortness of breath with ambulation. Patient states that he is ready to be discharged and feels like he would like to follow-up with the specialists as an outpatient. Review of Systems Constitutional: Reports: see HPI. EENTM: Reports: no symptoms. Cardiovascular: Reports: no symptoms. Respiratory: Reports: no symptoms. Gastrointestinal: Reports: see HPI. Genitourinary: Reports: no symptoms. Musculoskeletal: Reports: no symptoms. Skin: Reports: no symptoms. Objective Last 24 Hrs of Vital Signs/I&O Vital Signs Date Time Temp Pulse Resp B/P B/P Pulse O2 O2 Flow FiO2 Mean Ox Delivery Rate 12/23 927 72 110/64 12/22 0927 72 110/64 12/22 0645 98.1 61 20 110/44 95 Room Air 12/21 2140 98.1 71 18 140/76 97 Intake & Output 12/22 1600 12/22 0800 12/22 0000 Intake Total 240 50 290 Output Total Balance 240 50 290 Intake, IV 0 10 Intake, Oral 240 50 280 Number 0 Bowel Movements Physical Exam General Appearance: Alert, Cooperative, No Acute Distress Skin: No Breakdown Skin Temp/Moisture Exam: Warm/Dry HEENT: Mucous Membr. moist/pink Cardiovascular: Regular Rate, Normal S1, Normal S2 Lungs: Clear to Auscultation, Normal Air Movement Abdomen: Normal Bowel Sounds, Soft, No Tenderness Neurological: Normal Gait, Normal Speech, Normal Tone Extremities: No Edema, Normal Pulses Vascular: Pulses Symmetrical Current Medications: Current Medications Sig/Moira Start time Last Medication Dose Route Stop Time Status Admin Aspirin 81 MG DAILY 12/19 1000 AC 12/22 PO 09 Atenolol 25 MG DAILY 12/19 1000 AC 12/22 PO 09 Bisacodyl 5 MG DAILY PRN 12/21 1515 AC 12/21 PO 2223 Bisacodyl 10 MG DAILY PRN 12/21 1515 AC MI Heparin Sodium 5,000 UNIT Q8 12/19 0600 AC 12/19 (Porcine) SC 0536 Hydromorphone HCl 2 MG Q4P PRN 12/19 0200 AC PO Nifedipine 30 MG DAILY 12/19 1000 AC 12/22 PO 0928 Omeprazole 40 MG DAILY AC 12/19 0700 AC 12/22 PO 0623 Senna 187 MG AT BEDTIME PRN 12/21 1515 AC 12/21 PO 2223 Last 24 Hrs of Lab/Dhruv Results Last 24 Hrs of Labs/Mics: Laboratory Tests 12/22/17 0655: Anion Gap 12, Estimated GFR 38 L, BUN/Creatinine Ratio 10.0, Total Bilirubin 0.6, Direct Bilirubin 0.6 H, AST 112 H, ALT 288 H, Alkaline Phosphatase 288 H, Total Protein 6.8, Albumin 3.4 L, CBC w Diff NO MAN DIFF REQ, RBC 4.04 L, MCV 87.3, MCH 28.9, MCHC 33.1, RDW 16.4 H, MPV 10.0, Gran % 68.4, Lymphocytes % 20.1 L, Monocytes % 5.8, Eosinophils % 5.3 H, Basophils % 0.4, Absolute Granulocytes 5.5, Absolute Lymphocytes 1.6, Absolute Monocytes 0.5, Absolute Eosinophils 0.4, Absolute Basophils 0 Assessment/Plan Assessment: 87-year-old gentleman with a PMH of bradycardia s/p PPM, CAD s/p stenting, bilateral carotid endarterectomy status post stenting, HTN, HLD, renal cell carcinoma s/p left-sided nephrectomy (oct 2017), pancreatic cysts, recent admission for GI bleed who presented to [place] with 3 day duration intermittent abdominal pain with associated nausea and vomiting. VS on admission: BP 184/126, HR 88, RR 22, SPO2 100% on RA, T 96.6. Pertinent labs and admission: WBC 9.6, H&H 11.5/35, platelets 207, BUN 24, creatinine 1.7, AST/ALT 680/473, alkaline phosphatase 307, lipase thousand 845 Patient was admitted to general medicine and managed for the following problems 1. Gallstone pancreatitis 2. Transaminitis 3. CKD Plan: * Abdominal ultrasound and 12/19/17 showed cholelithiasis, mild gallbladder wall thickening, no biliary duct dilatation. CT abdomen and pelvis did show again cholelithiasis without additional findings to suggest acute cholecystitis. Follow-up MRCP was performed that showed trace edema surrounding the liver, spleen and gallbladder with findings consistent with patient's history of pancreatitis. Stable cystic masses on pancreas were unchanged in comparison with 11/09/2016. There may be communication of the cystic structures to the side branches of the main pancreatic duct, but not to the main pancreatic duct itself. Findings may represent multiple IPMN's. The findings in the pancreatic tail may also be related to cystic side branch ectasia. Continued follow-up is recommended. * LFTs trended down over the hospital course from the 800s to 100S. Patient tolerated his diet without recurrence of symptoms. Plavix was stopped on 2017 with plan to hold for 5 days prior to planned ERCP with probable sphincterectomy. Patient instructed to follow-up with his special shopper and to restart the Plavix once stable. Tentative schedule this for this to be done on Wednesday12/27/2017. He will continue on aspirin * Patient instructed that in the event he has to have surgical intervention for cholecystectomy, he will have to discuss when to restart antiplatelet therapy * CT abdomen showed unchanged appearance of the right kidney with renal cysts and exophytic upper pole lesion which likely represents proteinaceous or hemorrhagic cyst. Renal function remained stable throughout the hospital course. Problem List: 1. Gallstone pancreatitis 2. Chronic renal insufficiency Pain Ratin Pain Location: Upper abdomen Pain Goal: Pain 4 or less Pain Plan: Pain pathway with Dilaudid as needed Tomorrow's Labs & Rationales: None required. DVT/Prophylaxis: pharmacological Discharge Plan Discharge Disposition: home Stable for Discharge? Yes Anticipated Discharge (Day): today If Discharged Today/In 24 Hrs: enter antc discharge ord, W-10/discharge paper done, DC summary done, CMR done Uriah Boyd MD 12/22/17 2216: Attending MD Review Statement Attending Statement Attending MD Statement: examined this patient, discuss w/resident/PA/VERIFICATION CLERK, agreed w/resident/PA/VERIFICATION CLERK, discussed with family, reviewed EMR data (avail), discussed with nursing, discussed with case mgmt, amended to note Attending Assessment/Plan: The patient was seen and discussed with house staff. GI input appreciated. Agree with plan of care as outlined. OK to discharge to home today with follow-up with Dr. Mata.
[2017-12-22 08:32] LABS: ABSOLUTE BASOPHIL COUNT 0 /CUMM (0.0-0.2); ABSOLUTE EOSINOPHIL COUNT 0.4 /CUMM (0.0-0.7); ABSOLUTE GRANULOCYTE CT 5.5 /CUMM (1.4-6.5); ABSOLUTE LYMPH COUNT 1.6 /CUMM (1.2-3.4); ABSOLUTE MONOCYTE COUNT 0.5 /CUMM (0.10-0.60); BASOPHIL % 0.4 % (0.0-2.0); EOSINOPHIL % 5.3 % (0-5); GRANULOCYTE % 68.4 % (42.2-75.2); HEMATOCRIT 35.3 % (42-52); MEAN CORPUSCULAR HGB 28.9 PG (27.0-31.0); MEAN CORPUSCULAR HGB CONC 33.1 G/DL (33.0-37.0); MEAN CORPUSCULAR VOLUME 87.3 FL (80.0-94.0); PLATELET COUNT 214 /CUMM (130-400); RBC DISTRIBUTION WIDTH 16.4 % (11.5-14.5); RED BLOOD CELL CT 4.04 /CUMM (4.70-6.10)
[2017-12-22 09:28] VITALS: BP 110/64
--- NOTE | 2017-12-22 09:39 | Patient Discharge Instructions ---
Discharge Instructions General Discharge Information Special Instructions: The Plavix has been stopped for 5 days (12/20/2017 through 12/24/2017). Please follow-up with your pl sql programmer on planned procedure and when to restart this medication. If there is a need for surgery, you may have to stop the aspirin. Please follow -up with recommendations from the surgeon provided at that time. Please follow-up with a pl sql programmer at the scheduled appointment. Please follow-up with your PCP within 1 week after discharge. Should you experience any increased abdominal pain, fever, chills, nausea, vomiting please come back to the emergency department. Acute Coronary Syndrome Inclusion Criteria At DC or during hospital stay patient has or had the following: ACS DIAGNOSIS No Discharge Core Measures Meds if any: Prescribed or Continued at Discharge Meds if any: NOT Prescribed or Continued at Discharge Congestive Heart Failure Inclusion Criteria At DC or during hospital stay patient has or had the following: CHF DIAGNOSIS No Discharge Core Measures Meds if any: Prescribed or Continued at Discharge Meds if any: NOT Prescribed or Continued at Discharge Cerebrovascular accident Inclusion Criteria At DC or during hospital stay patient has or had the following: CVA/TIA Diagnosis No Discharge Core Measures Meds if any: Prescribed or Continued at Discharge Meds if any: NOT Prescribed or Continued at Discharge Venous thromboembolism Inclusion Criteria VTE Diagnosis No VTE Type NONE VTE Confirmed by (Test) NONE Discharge Core Measures - Per Current guidelines, there needs to be overlap - treatment for the first 5 days of Warfarin therapy. - If discharged on Warfarin prior to 5 days of - overlap therapy, the patient will need to be - assessed for post discharge needs including - *Post discharge parental anticoagulation - *Warfarin and/or parental anticoagulation education - *Follow up date to check INR post discharge At least 5 days overlap therapy as Inpatient No Meds if any: Prescribed or Continued at Discharge Note: Overlap Therapy is Warfarin and Anticoagulant Meds if any: NOT Prescribed or Continued at Discharge
--- NOTE | 2017-12-22 15:41 | PN- Gastroenterology ---
Assessment/Plan GI Assessment/Recommendations: Gallstone pancreatitis with elevated liver associated enzymes. There has been gradual decline in bilirubin/LFTs. The patient remains pain free, and MRCP is negative for choledocholithiasis. There is no evident cholangitis. The patient most likely passed a common bile duct stone. Stable pancreatic cystic lesions. Recent GI bleed, secondary to duodenal ulcer, without recurrence. Recommendations * Agree with discharge * Continue to hold Plavix; may continue aspirin * Continue PPI therapy * ERCP with sphincterotomy to be performed next week. We'll obtain CBC, LFTs, INR prior to procedure. Subjective Subjective: No abdominal pain, nausea, vomiting, fever. Objective Vital Signs and I&Os Vital Signs Date Time Temp Pulse Resp B/P B/P Pulse O2 O2 Flow FiO2 Mean Ox Delivery Rate 12/23 927 72 110/64 12/22 926 72 110/64 12/22 0645 98.1 61 20 110/44 95 Room Air 12/21 2140 98.1 71 18 140/76 97 Intake & Output 12/22 1600 12/21 0400 12/20 1600 12/20 0400 Intake Total 290 637 372 4359 2040 900 Output Total 950 2150 Balance 290 450 613 4189 1090 -1250 Intake, IV 0 10 350 1800 800 Intake, Oral 290 105 422 1696 240 100 Number 0 Bowel Movements Output, Urine 950 2150 Patient 2285 lb Weight Physical Exam: Alert and oriented. Sclera anicteric. Abdomen soft, nondistended, nontender. Results Pertinent Lab Results: Laboratory Tests 12/22 12/21 0655 0745 Chemistry Sodium (137 - 145 mmol/L) 142 142 Potassium (3.5 - 5.1 mmol/L) 4.3 4.3 Chloride (98 - 107 mmol/L) 103 103 Carbon Dioxide (22 - 30 mmol/L) 27 27 Anion Gap (5 - 16) 12 11 BUN (9 - 20 mg/dL) 17 15 Creatinine (0.7 - 1.2 mg/dL) 1.7 H 1.5 H Estimated GFR (>60 ml/min) 38 L 44 L BUN/Creatinine Ratio (7 - 25 %) 10.0 10.0 Total Bilirubin (0.2 - 1.3 mg/dL) 0.6 0.8 Direct Bilirubin (< 0.4 mg/dL) 0.6 H 0.6 H AST (17 - 59 U/L) 112 H 204 H ALT (21 - 72 U/L) 288 H 374 H Alkaline Phosphatase (< 127 U/L) 288 H 316 H Total Protein (6.3 - 8.2 g/dL) 6.8 6.5 Albumin (3.5 - 5.0 g/dL) 3.4 L 3.2 L Hematology CBC w Diff NO MAN DIFF REQ NO MAN DIFF REQ WBC (4.8 - 10.8 /CUMM) 8.0 7.0 RBC (4.70 - 6.10 /CUMM) 4.04 L 3.86 L Hgb (14.0 - 18.0 G/DL) 11.7 L 11.1 L Hct (42 - 52 %) 35.3 L 33.7 L MCV (80.0 - 94.0 FL) 87.3 87.2 MCH (27.0 - 31.0 PG) 28.9 28.8 MCHC (33.0 - 37.0 G/DL) 33.1 33.0 RDW (11.5 - 14.5 %) 16.4 H 16.5 H Plt Count (130 - 400 /CUMM) 214 199 MPV (7.4 - 10.4 FL) 10.0 10.0 Gran % (42.2 - 75.2 %) 68.4 65.9 Lymphocytes % (20.5 - 51.1 %) 20.1 L 22.4 Monocytes % (1.7 - 9.3 %) 5.8 6.1 Eosinophils % (0 - 5 %) 5.3 H 5.3 H Basophils % (0.0 - 2.0 %) 0.4 0.3 Absolute Granulocytes (1.4 - 6.5 /CUMM) 5.5 4.6 Absolute Lymphocytes (1.2 - 3.4 /CUMM) 1.6 1.6 Absolute Monocytes (0.10 - 0.60 /CUMM) 0.5 0.4 Absolute Eosinophils (0.0 - 0.7 /CUMM) 0.4 0.4 Absolute Basophils (0.0 - 0.2 /CUMM) 0 0 04/09 0755 Chemistry Sodium (137 - 145 mmol/L) 142 Potassium (3.5 - 5.1 mmol/L) 4.2 Chloride (98 - 107 mmol/L) 107 Carbon Dioxide (22 - 30 mmol/L) 25 Anion Gap (5 - 16) 10 BUN (9 - 20 mg/dL) 14 Creatinine (0.7 - 1.2 mg/dL) 1.4 H Estimated GFR (>60 ml/min) 48 L BUN/Creatinine Ratio (7 - 25 %) 10.0 Total Bilirubin (0.2 - 1.3 mg/dL) 1.5 H Direct Bilirubin (< 0.4 mg/dL) 1.0 H AST (17 - 59 U/L) 395 H ALT (21 - 72 U/L) 482 H Alkaline Phosphatase (< 127 U/L) 327 H Total Protein (6.3 - 8.2 g/dL) 5.9 L Albumin (3.5 - 5.0 g/dL) 2.7 L Hematology CBC w Diff NO MAN DIFF REQ WBC (4.8 - 10.8 /CUMM) 5.5 RBC (4.70 - 6.10 /CUMM) 3.65 L Hgb (14.0 - 18.0 G/DL) 10.6 L Hct (42 - 52 %) 31.8 L MCV (80.0 - 94.0 FL) 87.0 MCH (27.0 - 31.0 PG) 29.0 MCHC (33.0 - 37.0 G/DL) 33.4 RDW (11.5 - 14.5 %) 16.6 H Plt Count (130 - 400 /CUMM) 161 MPV (7.4 - 10.4 FL) 10.3 Gran % (42.2 - 75.2 %) 66.7 Lymphocytes % (20.5 - 51.1 %) 20.9 Monocytes % (1.7 - 9.3 %) 5.3 Eosinophils % (0 - 5 %) 6.4 H Basophils % (0.0 - 2.0 %) 0.7 Absolute Granulocytes (1.4 - 6.5 /CUMM) 3.7 Absolute Lymphocytes (1.2 - 3.4 /CUMM) 1.2 Absolute Monocytes (0.10 - 0.60 /CUMM) 0.3 Absolute Eosinophils (0.0 - 0.7 /CUMM) 0.4 Absolute Basophils (0.0 - 0.2 /CUMM) 0
--- NOTE | 2017-12-22 15:46 | Discharge Summary ---
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 Vital signs on admission: T 96.6 P 88, RR 22, BP 184/126 (came down to 126/61 with just pain control), saturating 100% on room air Labs on admission: WBC 9.6, H/H 11.5/35, platelets 207, BUN 24, creatinine 1.7, AST 680, ALT 473, alkaline phosphatase 307, lipase 6845. The patient was admitted to the General Medical service and below is a summary of the care he received under us. Problem list #Pancreatitis,likely due to gallstones, patient does not drink alcohol heavily #Transaminitis #Chronic medical problems, renal function appeared to be at baseline Patient was initially made nothing by mouth and a GI consultation was obtained. He was also aggressively hydrated with lactated Ringer's. On day 2 of admission the patient underwent an MRCP (results attached). Follow-up MRCP was performed that showed trace edema surrounding the liver, spleen and gallbladder with findings consistent with patient's history of pancreatitis. The patient was started on a clear liquid diet which he was able to tolerate well. Over the course of the admission the patient's Alk Phos and LFTs monitored. These all trended down. He was given instructions to follow-up with a GI physician for evaluation for a ERCP with sphincterotomy versus cholecystectomy. The patient who is on Plavix this medication had to have this medication held (it was held from 12/20/2017). Patient was instructed to follow-up with gastroenterology for possible procedure scheduled for 12/27/2017. He was to be continued on aspirin. DVT prophylaxis the patient was maintained on sub-cutaneous heparin. Patient was a full code of the course of the admission. Allergies: Coded Allergies: adhesive tape (UNKNOWN 11/06/17) Pertinent Lab Results: SERVICE DATE: 12/19/17- EXAM TYPE: US - US-COMPLETE ABDOMEN EXAMINATION: US ABDOMEN COMPLETE CLINICAL INFORMATION: Abdominal pain and nausea. COMPARISON: CT abdomen pelvis earlier today. TECHNIQUE: Real-time imaging of the abdominal viscera. FINDINGS: PANCREAS: Not well visualized secondary to bowel gas obscuration. ABDOMINAL AORTA: The proximal segment is normal in caliber. INFERIOR VENA CAVA: Visualized portions are normal. LIVER: Unremarkable. The liver demonstrates normal size, contour and echogenicity. No focal lesion or intrahepatic biliary duct dilatation. GALLBLADDER: Cholelithiasis demonstrated. The gallbladder is incompletely distended with bladder wall thickness measuring up to 0.6 cm. No sonographic Chan sign. COMMON BILE DUCT: Normal in caliber measuring 0.4 cm in diameter. RIGHT KIDNEY: There is a 3.5 cm cyst along the upper pole of the right kidney without convincing suspicious features, favor Bosniak [address] scan. No hydronephrosis. No renal calculi or focal parenchymal lesions. The kidney measures 12.4 cm in maximum dimension. LEFT KIDNEY: Absent. SPLEEN: Normal. The spleen measures 11.3 cm in maximum dimension. FREE FLUID: None. IMPRESSION: 1. Cholelithiasis. Mild gallbladder wall thickening likely represents sequela of underdistention. No sonographic Chan sign to diagnose cholecystitis. 2. No biliary ductal dilatation. 3. Additional findings as above. DICTATED BY: Bhavin Wilkerson MD SERVICE DATE: 12/19/17 EXAM TYPE: CAT - CT ABD & PELVIS W/O IV CONTRAS SERVICE DATE: 12/19/17 EXAM TYPE: CAT - CT ABD & PELVIS W/O IV CONTRAS EXAMINATION: CT ABDOMEN AND PELVIS WITHOUT CONTRAST CLINICAL INFORMATION: Nausea and vomiting. Distention. Right upper quadrant tenderness. COMPARISON: 11/06/2017 TECHNIQUE: Multidetector volumetric imaging was performed from the superior aspect of the liver through the pubic symphysis. Sagittal and coronal reformatted images were obtained on the technologist's workstation. DLP: 934 mGy-cm FINDINGS: LUNG BASES: Minimal bibasilar atelectasis. Lung cyst at the right base. Improvement of the prior left pleural effusion. Cardiac pacer leads noted. LIVER, GALLBLADDER, AND BILIARY TREE: The liver is normal in size, shape, and attenuation. No focal hepatic lesion or biliary ductal dilatation is present. Multiple small gallstones are seen layering in the gallbladder lumen, unchanged. No gallbladder wall thickening or pericholecystic fluid. PANCREAS: There is a hypoattenuating structure at the neck of the pancreas, measuring 1 cm. This appears cystic and is unchanged from prior. No pancreatic ductal dilatation. The pancreatic parenchyma is otherwise unremarkable. SPLEEN: Unremarkable. ADRENAL GLANDS: Right adrenal gland is unremarkable. The left is not definitively seen and may be surgically absent. KIDNEYS AND URETERS: Status post left nephrectomy. Prominent scarring at the operative site. The right kidney is normal in size without hydronephrosis. 2.8 cm right midpole renal cyst. There is an exophytic upper pole hyperattenuating lesion which is also unchanged. BLADDER: Unremarkable. GASTROINTESTINAL TRACT: The stomach is unremarkable. The small bowel is normal in caliber. No obstruction. There is colonic diverticulosis, greatest at the sigmoid colon. Stranding seen adjacent to the sigmoid colon appears chronic and is likely associated with scarring. There is no focal wall thickening with adjacent inflammation seen to suggest diverticulitis. No free air or free fluid. Normal appendix. ABDOMINAL WALL: No significant hernia is appreciated. LYMPH NODES: Normal. VASCULAR: Normal caliber aorta with mild atherosclerotic calcifications. Bilateral common iliac artery stents. PELVIC VISCERA: The prostate and seminal vesicles are unremarkable. OSSEOUS STRUCTURES: No acute or suspicious osseous abnormality. Multilevel degenerative changes of the spine. Mild degenerative changes also present in the hips. IMPRESSION: No acute findings in the abdomen or pelvis. Cholelithiasis without additional findings to suggest acute cholecystitis. Status post left nephrectomy. Unchanged appearance of scarring extending into the pelvis. Unchanged appearance of the right kidney with renal cyst and exophytic upper pole lesion which likely represents proteinaceous or hemorrhagic cyst. Colonic diverticulosis without diverticulitis. DICTATED BY: Melinda CORTES,Narendra SERVICE DATE: 12/20/17- EXAM TYPE: MRI - MRI-ABDOMEN SERVICE DATE: 12/20/17- EXAM TYPE: MRI - MRI-ABDOMEN EXAMINATION: MR ABDOMEN WITHOUT CONTRAST/MRCP CLINICAL INFORMATION: Cyst of pancreas. Presumptive diagnosis of gallstone pancreatitis. COMPARISON: Ultrasound of the abdomen dated 12/19/2017. CT scan of the abdomen and pelvis dated 12/19/2017 and 07/26/2015. MRI scan of the abdomen dated 11/09/2016. TECHNIQUE: An MRI scan of the abdomen was performed using multiple imaging sequences and imaging planes. As per the MRCP protocol, heavily T2-weighted 3-D high-resolution MRCP sequences were obtained in the coronal plane along with thin and thick slab coronal images and coronal MIP reconstructions obtained on the technologist workstation under concurrent physician supervision. FINDINGS: LIVER: The liver is normal in size and signal. No hepatic steatosis is seen. No focal cystic or solid mass is present. There is a trace amount of free fluid surrounding the liver and the spleen. GALLBLADDER/BILIARY TREE: The gallbladder is partially distended and appears unremarkable. Small amount of pericholecystic fluid is seen. No intra-or extrahepatic ductal dilatation is seen. Common bile duct measures 0.4 cm. No filling defect is seen within the common bile duct. PANCREAS: As seen previously, there are several cystic masses within the pancreas, the largest of which is seen in the pancreatic neck (series 2, image 14), measuring 1.1 x 1.5 x 0.9 cm versus 1.2 x 1.4 x 1.1 cm (11/09/2016). A second smaller cyst is seen in the pancreatic tail, measuring 0.9 x 0.6 cm, similar to the previous exam. Both of these masses may be connected to side branches but no definite connection to the main pancreatic duct is seen. On the MRCP sequences, there appear to be additional tiny cysts in the pancreatic head and pancreatic tail, all unchanged from prior exam. These findings may represent cystic side branch ectasia. The main pancreatic duct measures 0.2 cm in diameter. No variant anatomy is of the main pancreatic duct seen. There is a minimal peripancreatic edema. No peripancreatic defined fluid collections are seen. SPLEEN: Normal size and malrotated/displaced partially into the left renal bed. Splenic otherwise unremarkable. ADRENAL GLANDS AND KIDNEYS: Adrenal glands normal. The patient is status post left nephrectomy with no evidence of residual or recurrent mass in the nephrectomy bed. The right kidney is similar in appearance to prior exams. There is a 2.0 x 3.5 x 3.8 cm exophytic mass in the upper pole of the right kidney, appearing hyperintense on T1 weighted sequences and isointense on T2-weighted sequences (series 2, image 8), previously measuring 2.1 x 3.1 x 3.2 cm (11/09/2016). This was shown on prior imaging to represent a hyperintense hemorrhagic or proteinaceous cyst. In addition, there is a partially exophytic mid right renal simple T2 bright and T1 dark cyst in the mid right kidney, measuring 3.8 x 4.3 x 3.0 cm in size as compared to 3.3 x 3.9 x 2.9 cm (11/09/2016). No suspicious new focal mass or hydronephrosis. Nonspecific mild perinephric stranding is seen. BOWEL LOOPS: Grossly within normal limits. LYMPHOVASCULAR STRUCTURES: Abdominal aorta normal in caliber. No periaortic collections. No abdominal adenopathy or free fluid collection. BONES: Within normal limits to the extent included. Other: Trace amount of pleural fluid is seen bilaterally, left greater than right. IMPRESSION: 1. There is only a trace amount of edema seen surrounding the pancreas and a trace amount of edema surrounding the liver and spleen and gallbladder. Findings may be consistent with the patient's history of pancreatitis. No defined peripancreatic fluid collections are seen. 2. No variant ductal anatomy or abnormal pancreatic ductal dilatation is seen. 3. There are stable cystic masses in the pancreas, unchanged compared to prior studies dating back to 11/09/2016. There may be communication of these cystic structures to the side branches of the main pancreatic duct, but not to the main pancreatic duct itself. Findings may represent multiple IPMN's. The findings in the pancreatic tail may also be related to cystic side branch ectasia. Continued follow-up is recommended. 4. Status post left nephrectomy with no evidence of residual or recurrent mass. 5. Stable hemorrhagic/proteinaceous cyst in the upper pole of the right kidney and simple cyst in the mid right kidney. 6. Trace bilateral pleural fluid. DICTATED BY: Hunter CORTES,Eliane Mena Disposition Summary Disposition Principal Diagnosis: Gallstone Pancreatitis Additional Diagnosis: Transaminitis CKD Discharge Disposition: home or self care Discharge Instructions General Discharge Information Code Status: Full Code Patient's Diet: Heart Healthy Patient's Activity: As Tolerated Follow-Up Instructions/Appts: The Plavix has been stopped for 5 days (12/20/2017 through 12/24/2017). Please follow-up with your credit collections manager on planned procedure and when to restart this medication. If there is a need for surgery, you may have to stop the aspirin. Please follow -up with recommendations from the surgeon provided at that time. Please follow-up with a credit collections manager at the scheduled appointment. Please follow-up with your PCP within 1 week after discharge. Should you experience any increased abdominal pain, fever, chills, nausea, vomiting please come back to the emergency department. Medications at Discharge Discharge Medications: Stop taking the following medications: Clopidogrel Bisulfate (Clopidogrel) 75 MG TABLET ORAL DAILY Qty = 90 Continue taking these medications: Nifedipine (Nifedipine ER) 30 MG TAB.ER.24 1 Tablet ORAL DAILY Comments: Last Taken:12/22/17 Time:9:28 Atenolol (Atenolol) 25 MG TABLET 1 Tablet ORAL DAILY Qty = 90 Comments: Last Taken: 12/22/17 Time: 09:27 Pantoprazole Sodium (Pantoprazole Sodium) 40 MG TABLET.DR 1 Tablet ORAL DAILY Qty = 180 Comments: NOT GIVEN IN THE HOSPITAL Atorvastatin Calcium (Atorvastatin Calcium) 40 MG TABLET 1 Tablet ORAL DAILY Qty = 90 Comments: NOT GIVEN IN THE HOSPITAL Aspirin (Aspirin*) 81 MG TAB.CHEW 1 Tablet ORAL DAILY Comments: Last Taken: 12/22/17 Time: 09:28 Copies To: Mayela CORTES,Mya Butler; Esperanza CORTES,Anand Peoples MD Review Statement Documenting Attending: Uriah Boyd MD Other Findings: The patient was seen on the day of discharge and agree with the plan of care as outlined.
== END 2017-12-22 15:30 | DRG 439 ==
LOC: ERH 23:26 → ERHI 12-19 01:01 → 2NA 12-19 01:01 → ENRESERV 12-19 01:58 → 2NA 12-19 02:33 → ENPENDDIS 12-22 13:54 → ENTRNSPT 12-22 15:17 → EDTRNSPT 12-22 15:19 → EDTRNSPTSTS 12-22 15:19 → 2NA 12-22 15:30 → CMPTRNSPT 12-22 15:32
PROVIDERS: Emergency Medicine; Internal Medicine; Student in an Organized Health Care Education/Training Program
DX: K85.10 Biliary acute pancreatitis without necrosis or infection (principal); K86.2 Cyst of pancreas; I13.10 Hypertensive heart and chronic kidney disease without heart failure, with stage 1 through stage 4 chronic kidney disease, or unspecified chronic kidney disease; I73.9 Peripheral vascular disease, unspecified; E78.5 Hyperlipidemia, unspecified; R74.0 Nonspecific elevation of levels of transaminase and lactic acid dehydrogenase [LDH]; Z95.0 Presence of cardiac pacemaker; N18.3 Chronic kidney disease, stage 3 (moderate); Z90.5 Acquired absence of kidney; Z85.528 Personal history of other malignant neoplasm of kidney; I25.10 Atherosclerotic heart disease of native coronary artery without angina pectoris; Z95.818 Presence of other cardiac implants and grafts; Z79.82 Long term (current) use of aspirin; H91.90 Unspecified hearing loss, unspecified ear; M48.00 Spinal stenosis, site unspecified; M54.9 Dorsalgia, unspecified; Z87.891 Personal history of nicotine dependence; K57.90 Diverticulosis of intestine, part unspecified, without perforation or abscess without bleeding; K26.7 Chronic duodenal ulcer without hemorrhage or perforation
CPT/HCPCS: 2NASP; 74181; 36415; 36592; 74176; 82436; 93005; 93010; 96361; 96374; 96375; J1644; J2405; J3490

== ENCOUNTER → 2018-01-31 | Day surgery (SDC) | payer OTHER, MEDICARE ==
[~2018-01-31] VITALS: Ht 175.3 cm; Wt 96.2 kg
[~2018-01-31] MED LIST changes: +ASPIRIN81 M4 PO; +ATORVASTATIN CA40 M1 PO; +AUGMENTIN 875-1 EACH PO; +PANTOPRAZOLE SO40 M1 PO; +PERCOCET 5-3251 EACH PO
--- NOTE | 2018-01-31 14:54 | Operative Report ---
Operative/Inv Procedure Report Surgery Date: 01/31/18 Name of Procedure: Laparoscopic cholecystectomy Pre-Operative Diagnosis: Chronic cholecystitis Post-Operative Diagnosis: Same Estimated Blood Loss: less than 50ml Surgeon/Payroll Clerk: Adelso Bazzi MD/Meagan Hector APRN Anesthesia: general endotracheal tube Specimens: Gallbladder Operative Indication: 87-year-old male found to have episode of biliary colic following medical management of gallstone pancreatitis. He presents for resection Operative/Procedure Note Note: After informed consent patient is brought to the operating room and laid supine. General anesthesia was obtained and hIS abdomen was prepped and draped. The skin above the umbilicus infiltrated with local anesthesia and a curvilinear incision made sharply. We came down through the subcutaneous tissues bluntly and grasped the fascia with Perla's. A fasciotomy was created sharply and stay sutures placed. The peritoneum was entered sharply and a blunt Leigh port was placed. Pneumoperitoneum was achieved. 3, 5 mm ports were placed in the epigastrium and right upper quadrant after local anesthesia was instilled and under direct vision the camera. he's placed in reverse Trendelenburg and rotated towards the left. The gallbladder is identified. It was grasped at the dome and retracted towards the head. Infundibulum was then grasped. Adhesions to the undersurface were taken down with blunt and cautery dissection. The gallbladder was very friable making dissection difficult. We dissected both sides the triangle Calot peritoneal tissue with cautery. The artery was never identified. [place] was cleared of areolar tissue with cautery. The duct was doubly ligated with clips. Gallbladder is removed from the fossa electrocautery. It was placed in Endo Catch bag and cinched up. Right upper quadrant was and suction irrigated normal saline. Hemostasis achieved with cautery. The ports were then removed and the gallbladder delivered and passed off the field. The fascia was closed with 0 Vicryl suture. Skin incisions closed with 4-0 Vicryl. Steri-Strips and sterile dressing applied. Sponge and needle counts are correct. Findings: Chronic cholecystitis CC: Mayela CORTES,Mya Luke
== END ==
LOC: STS 03:53
DX: K80.10 Calculus of gallbladder with chronic cholecystitis without obstruction (principal); I10 Essential (primary) hypertension; Z85.528 Personal history of other malignant neoplasm of kidney; I25.2 Old myocardial infarction; Z87.891 Personal history of nicotine dependence; Z79.02 Long term (current) use of antithrombotics/antiplatelets; M19.90 Unspecified osteoarthritis, unspecified site; Z79.82 Long term (current) use of aspirin
CPT/HCPCS: C9399; J0690; J2250